=== PATIENT | male | born 1980 | race Caucasian/White ===

== ENCOUNTER 2017-05-27 15:05 | Emergency (ER) | payer BC ==
[~2017-05-27] VITALS: Ht 185.4 cm; Wt 102.0 kg
[~2017-05-27 15:05] MED LIST: CHOL20009 PO; DULO60CA44 PO; FRCT/ PO; HYDR25CA PO; LISI-787 PO; MULT-506 PO; OMEG10007 PO; PRAZ5CAP2 PO; PREG1CAP34 PO; SIMV20TA2 PO; TRAZ50TA35 PO
[2017-05-27 15:07] VITALS: TEMP 37.4; Ht 185.4 cm; Wt 102.0 kg
[2017-05-27 15:36] LABS: BASO % 1.5 %; BASO ABS # 0.09 K/uL (0-0.2); EOS % 0.8 %; EOS ABS # 0.05 K/uL (0-0.5); HEMATOCRIT 47.6 % (42-52); HEMOGLOBIN 15.7 g/dL (14.0-18.0); IG# 0.01 K/uL (0.00-0.02); LYMPH % 10.7 %; LYMPH ABS # 0.66 K/uL (1.2-3.4); MEAN CELL VOLUME 82.9 fL (80-100); MEAN CORPUSCULAR HEMOGLOBIN 27.4 pg (25-34); MEAN PLATELET VOLUME 10.8 fL (7.4-10.4); MONO % 11.5 %; MONO ABS # 0.71 K/uL (0.11-0.59); NEUT % 75.3 %; NEUT ABS # 4.65 K/uL (1.4-6.5); PLATELET COUNT 153 K/uL (130-400); RED CELL DISTRIBUTION WIDTH CV 14.3 % (11.5-14.5); WHITE BLOOD COUNT 6.17 K/uL (4.8-10.8)
[2017-05-27 15:54] LABS: ALBUMIN 4.1 gm/dl (3.4-5.0); CALCIUM 8.7 mg/dl (8.5-10.1); CREATININE 1.13 mg/dl (0.60-1.40); POTASSIUM 3.5 mmol/L (3.5-5.1)
[2017-05-27] MEDS ORDERED: OPTIRAY 320 IV PRN (16:30)
--- NOTE | 2017-05-27 16:48 | DIAGNOSTIC IMAGING REPORT ---
ABD/PELVIS IV CONTRAST ONLY CLINICAL HISTORY: 37 years-old Male presenting with RLQ abd pain. TECHNIQUE: Multidetector CT of the abdomen and pelvis was performed after the administration of intravenous contrast. IV contrast: 117 mL of Optiray 320. A dose lowering technique was used consistent with the principles of ALARA (as low as reasonably achievable). COMPARISON: None. CT DOSE (mGy.cm): The estimated cumulative dose is 598.35 mGy.cm. FINDINGS: Senior Report Developer topogram: Unremarkable. Lung bases: Minimal basilar opacities, likely atelectasis. Normal heart size. No pericardial or pleural effusion. Liver: Normal morphology. No liver lesion. Patent hepatic vasculature. Biliary: No intrahepatic or extrahepatic biliary ductal dilatation. Normal gallbladder. Pancreas: Mild parenchymal atrophy. Spleen: Normal. Adrenal glands: Normal. Kidneys and ureters: Subcentimeter hypodensity in the right kidney likely small cyst. No nephrolithiasis. No hydronephrosis. Extrarenal pelvises noted. Suggestion of mild urothelial thickening on the left. The ureters are otherwise normal. No calculi. Bladder: Circumferential bladder wall thickening. Pelvic organs: Prostate and seminal vesicles normal. Bowel: Normal appendix. No bowel obstruction. Peritoneal cavity: No free fluid or intraperitoneal gas. Lymph nodes: No enlarged lymph nodes in the abdomen or pelvis. Vasculature: Aorta and IVC patent and normal in caliber. Abdominal wall: Small fat-containing umbilical hernia. Fat-containing right inguinal hernia. Musculoskeletal: Normal. IMPRESSION: 1. Subtle evidence of left urothelial thickening and circumferential bladder wall thickening. This raises concern for cystitis with upper tract involvement of dissection. It would be unlikely for a patient of this age to have circumferential bladder wall thickening related to chronic bladder outlet obstruction, especially given the absence of prostatomegaly. 2. Right fat-containing inguinal hernia. Electronically signed by: Gato Chang M.D. 05/27/2017 4:47 PM Dictated Date/Time: 05/27/2017 4:43 PM
--- NOTE | 2017-05-27 17:12 | EMERGENCY ROOM VISIT NOTE ---
History First contact with patient: 15:12 Chief Complaint: ABDOMINAL PAIN Stated Complaint: SHARP PAIN IN LIVER/APPENDIX AREA Nursing Triage Summary: Patient c/o intermittent, RLQ abdominal pain that started at 0300. Denies N/V/D. History of Present Illness The patient is a 37 year old male who presents to the Emergency Room with complaints of right lower quadrant abdominal pain that started this morning around 3 AM. The patient denied any symptoms overnight. The patient denies any alleviating or aggravating factors for his pain. The pain is not worsened with ambulation or movement. The pain does not radiate to the back, flank, penis or testicles. The patient denies any prior history of kidney stones or bowel disease. He has not noticed any change in stool color or consistency, and denies any current urinary symptoms. He rates his discomfort a 5 out of 10. Review of Systems HEENT: Denies dizziness, visual problems, hearing loss, tinnitus. Denies difficulty swallowing or oral lesions. PULMONARY: Denies cough, shortness of breath, sputum production or hemoptysis. CARDIOVASCULAR: Denies chest pain, palpitations, dyspnea on exertion, orthopnea or peripheral edema. GASTROINTESTINAL: Denies diarrhea, constipation, nausea or vomiting, otherwise see HPI. GENITOURINARY: Denies dysuria, frequency, urgency or nocturia. NEUROLOGIC: Denies history of epilepsy, CVA, TIA or chronic headaches. MUSCULOSKELETAL: Denies history of joint tenderness/swelling. SKIN: Denies rashes or lesions. PSYCHIATRIC: Denies history of depression or mental illness. ENDOCRINE: Denies history of diabetes or thyroid disorders. Past Medical/Surgical History Medical Problems: (1) Essential (Primary) Hypertension (2) Fibromyalgia (3) Hyperlipidemia, Unspecified (4) Insomnia, Unspecified (5) Polyneuropathy, Unspecified (6) Post-Traumatic Stress Disorder, Unspecified Surgical Problems: (1) No history of previous surgery Family History FH: diabetes mellitus FH: heart disease Social History Smoking Status: Former Smoker Alcohol Use: occasionally Marital Status: Housing Status: lives with family Occupation Status: employed Current/Historical Medications Scheduled Cholecalciferol (Vitamin D), 2,000 INTER.UNIT PO DAILY Duloxetine Hcl (Cymbalta), 120 MG PO QAM Lisinopril/Hctz (Zestoretic 20MG/12.5MG), 1 TAB PO DAILY Prazosin Hcl (Prazosin), 5 MG PO HS Pregabalin (Lyrica), 300 MG PO BID Trazodone Hcl (Trazodone), 50 MG PO HS Scheduled PRN Acetamin/Butalbital/Caffeine (Fioricet), 1 TAB PO UD PRN for Migraine Hydroxyzine Pamoate (Vistaril), 1 CAP PO TID PRN for Anxiety/Agitation Physical Exam Vital Signs Date Time Temp Pulse Resp B/P (MAP) Pulse Ox O2 Delivery O2 Flow Rate FiO2 05/27/17 17:17 75 18 145/73 99 05/27/17 15:07 37.4 83 16 129/85 98 Physical Exam CONSTITUTIONAL: Healthy and well nourished. Alert and oriented X 3 with positive affect. Patient does not appear in any acute distress. HEENT: Normocephalic, atraumatic. Pupils equal, round and reactive. No scleral icterus or conjunctival injection/pallor. NECK: Full active range of motion without discomfort. RESPIRATORY: Clear to auscultation bilaterally with no wheezing, crackles, rhonchi or stridor. CARDIOVASCULAR: Regular rate and rhythm with no murmurs, rubs or gallops. GASTROINTESTINAL: Bowel sounds present in all quadrants. Patient has mild right lower quadrant tenderness to palpation. Negative Rovsing sign. Negative CVA tenderness. Negative psoas/obturator sign. Negative heel tap. No tenderness to palpation through the right inguinal region. MUSCULOSKELETAL: Full range of motion of all joints without discomfort. No tenderness to palpation through the lower lumbar spine, paraspinous muscles or SI joints. Negative logroll. Negative straight leg raise. INTEGUMENTARY: No rash or other significant dermatologic conditions noted. HEMATOLOGIC: No ecchymosis or petechiae noted. NEUROLOGIC: No focal neurologic deficits noted. Medical Decision & Procedures ER Provider Diagnostic Interpretation: CT of the abdomen and pelvis with IV contrast only shows fat-containing right inguinal and umbilical hernias. Radiologist also makes mention of circumferential bladder wall thickening and mild urothelial thickening on the left. Radiologist report is as follows: ABD/PELVIS IV CONTRAST ONLY CLINICAL HISTORY: 37 years-old Male presenting with RLQ abd pain. TECHNIQUE: Multidetector CT of the abdomen and pelvis was performed after the administration of intravenous contrast. IV contrast: 117 mL of Optiray 320. A dose lowering technique was used consistent with the principles of ALARA (as low as reasonably achievable). COMPARISON: None. CT DOSE (mGy.cm): The estimated cumulative dose is 598.35 mGy.cm. FINDINGS: Cloth Sponger topogram: Unremarkable. Lung bases: Minimal basilar opacities, likely atelectasis. Normal heart size. No pericardial or pleural effusion. Liver: Normal morphology. No liver lesion. Patent hepatic vasculature. Biliary: No intrahepatic or extrahepatic biliary ductal dilatation. Normal gallbladder. Pancreas: Mild parenchymal atrophy. Spleen: Normal. Adrenal glands: Normal. Kidneys and ureters: Subcentimeter hypodensity in the right kidney likely small cyst. No nephrolithiasis. No hydronephrosis. Extrarenal pelvises noted. Suggestion of mild urothelial thickening on the left. The ureters are otherwise normal. No calculi. Bladder: Circumferential bladder wall thickening. Pelvic organs: Prostate and seminal vesicles normal. Bowel: Normal appendix. No bowel obstruction. Peritoneal cavity: No free fluid or intraperitoneal gas. Lymph nodes: No enlarged lymph nodes in the abdomen or pelvis. Vasculature: Aorta and IVC patent and normal in caliber. Abdominal wall: Small fat-containing umbilical hernia. Fat-containing right inguinal hernia. Musculoskeletal: Normal. IMPRESSION: 1. Subtle evidence of left urothelial thickening and circumferential bladder wall thickening. This raises concern for cystitis with upper tract involvement of dissection. It would be unlikely for a patient of this age to have circumferential bladder wall thickening related to chronic bladder outlet obstruction, especially given the absence of prostatomegaly. 2. Right fat-containing inguinal hernia. Laboratory Results 05/27/17 15:23 Red Blood Count 5.74, Mean Corpuscular Volume 82.9, Mean Corpuscular Hemoglobin 27.4, Mean Corpuscular Hemoglobin Concent 33.0, Mean Platelet Volume 10.8, Neutrophils (%) (Auto) 75.3, Lymphocytes (%) (Auto) 10.7, Monocytes (%) (Auto) 11.5, Eosinophils (%) (Auto) 0.8, Basophils (%) (Auto) 1.5, Neutrophils # (Auto ) 4.65, Lymphocytes # (Auto) 0.66, Monocytes # (Auto) 0.71, Eosinophils # (Auto ) 0.05, Basophils # (Auto) 0.09 05/27/17 15:23 Test 05/27/17 15:23 White Blood Count 6.17 K/uL (4.8-10.8) Red Blood Count 5.74 M/uL (4.7-6.1) Hemoglobin 15.7 g/dL (14.0-18.0) Hematocrit 47.6 % (42-52) Mean Corpuscular Volume 82.9 fL (80-100) Mean Corpuscular Hemoglobin 27.4 pg (25-34) Mean Corpuscular Hemoglobin Concent 33.0 g/dl (32-36) Platelet Count 153 K/uL (130-400) Mean Platelet Volume 10.8 fL (7.4-10.4) Neutrophils (%) (Auto) 75.3 % Lymphocytes (%) (Auto) 10.7 % Monocytes (%) (Auto) 11.5 % Eosinophils (%) (Auto) 0.8 % Basophils (%) (Auto) 1.5 % Neutrophils # (Auto) 4.65 K/uL (1.4-6.5) Lymphocytes # (Auto) 0.66 K/uL (1.2-3.4) Monocytes # (Auto) 0.71 K/uL (0.11-0.59) Eosinophils # (Auto) 0.05 K/uL (0-0.5) Basophils # (Auto) 0.09 K/uL (0-0.2) RDW Standard Deviation 44.0 fL (36.4-46.3) RDW Coefficient of Variation 14.3 % (11.5-14.5) Immature Granulocyte % (Auto) 0.2 % Immature Granulocyte # (Auto) 0.01 K/uL (0.00-0.02) Urine Color YELLOW Urine Appearance CLEAR (CLEAR) Urine pH 6.0 (4.5-7.5) Urine Specific [place] 1.023 (1.000-1.030) Urine Protein NEG (NEG) Urine Glucose (UA) NEG (NEG) Urine Ketones TRACE (NEG) Urine Occult Blood NEG (NEG) Urine Nitrite NEG (NEG) Urine Bilirubin NEG (NEG) Urine Urobilinogen NEG (NEG) Urine Leukocyte Esterase NEG (NEG) Urine WBC (Auto) 1-5 /hpf (0-5) Urine RBC (Auto) 0-4 /hpf (0-4) Urine Hyaline Casts (Auto) 0 /lpf (0-5) Urine Epithelial Cells (Auto) 0-5 /lpf (0-5) Urine Bacteria (Auto) NEG (NEG) Anion Gap 5.0 mmol/L (3-11) Est Creatinine Clear Calc Drug Dose 112.3 ml/min Estimated GFR () 95.7 Estimated GFR (Non- 82.6 BUN/Creatinine Ratio 11.2 (10-20) Calcium Level 8.7 mg/dl (8.5-10.1) Total Bilirubin 0.6 mg/dl (0.2-1) Direct Bilirubin 0.1 mg/dl (0-0.2) Aspartate Amino Transf (AST/SGOT) 35 U/L (15-37) Alanine Aminotransferase (ALT/SGPT) 49 U/L (12-78) Alkaline Phosphatase 82 U/L (45-117) Total Creatine Kinase 521 U/L (39-308) Total Protein 8.0 gm/dl (6.4-8.2) Albumin 4.1 gm/dl (3.4-5.0) Lipase 75 U/L (73-393) The above labs were reviewed. Sodium is 133, otherwise remaining labs are normal, including a urinalysis. ED Course Patient history and physical exam were performed. Nurse's notes were reviewed. Vital signs were reviewed and were normal. The patient does not appear in any acute distress, and abdomen exam is rather benign except for focal right lower quadrant tenderness to palpation. IV access was established, and labs were drawn. Initial urine dip was normal. Urinalysis continued to show no hematuria or signs of infection. Review of labs shows a mild hyponatremia, otherwise no leukocytosis or left shift noted. Electrolytes are also normal. LFTs and lipase are normal. At this point, I recommended a CT of the abdomen and pelvis, and the patient was in agreement. CT of the abdomen and pelvis with IV contrast shows fat-containing right inguinal and umbilical hernias. Patient also has circumferential bladder wall thickening. At this point, I suggested that the patient follow-up with his PCP to review his CT studies. 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 I will also allow his PCP to discuss urology referral as well. The patient was instructed to return to the emergency department for any progressively worsening pain, vomiting or fever. The patient was encouraged alternate ibuprofen and Tylenol as needed for pain. The patient was happy with plan of care, and voiced understanding of all discharge instructions, rating his pain a 2 out of 10 at the time of discharge. Medical Decision Patient presents with complaint of right lower quadrant abdominal pain. His CT scan today does not show any evidence for appendicitis. He has no signs of UTI or hematuria to suggest UTI or ureteral calculus. He has no obstructive findings on CT scan to suggest incarcerated/strangulated hernias. No diverticulitis is seen on CT scan. I do not suspect epididymitis, orchitis or testicular torsion. Abdominal wall strain is also certainly possible. Medication Reconcilliation Current Medication List: was personally reviewed by me Blood Pressure Screening Patient's blood pressure: Normal blood pressure Impression Primary Impression: Right inguinal hernia Additional Impressions: Umbilical hernia Cystitis Departure Information [facility] Patient Instructions My [facility] Problem Qualifiers Additional Impressions: Umbilical hernia Obstruction and gangrene presence: without obstruction or gangrene Qualified Codes: K42.9 - Umbilical hernia without obstruction or gangrene
[2017-05-27 17:17] VITALS: BP 145/73; PULSE 75; O2SAT 99
== END 2017-05-27 17:18 | disposition home or self-care (01) ==
LOC: C.EDB 15:07 → C.EDC 17:18
DX: K40.90 Unilateral inguinal hernia, without obstruction or gangrene, not specified as recurrent (principal); K42.9 Umbilical hernia without obstruction or gangrene; N30.90 Cystitis, unspecified without hematuria; I10 Essential (primary) hypertension; M79.7 Fibromyalgia; G62.9 Polyneuropathy, unspecified; F43.10 Post-traumatic stress disorder, unspecified; G47.00 Insomnia, unspecified; Z87.891 Personal history of nicotine dependence; Z83.3 Family history of diabetes mellitus; Z82.49 Family history of ischemic heart disease and other diseases of the circulatory system

== ENCOUNTER 2017-07-03 16:02 | Emergency (ER) | payer BC, OTHER ==
[~2017-07-03] VITALS: Ht 185.4 cm; Wt 98.0 kg
[~2017-07-03 16:02] MED LIST changes: -MULT-506 PO; -OMEG10007 PO; -SIMV20TA2 PO
[2017-07-03 17:00] VITALS: TEMP 37.1; Ht 185.4 cm; Wt 98.0 kg
[2017-07-03 17:26] LABS: BASO % 0.9 %; BASO ABS # 0.07 K/uL (0-0.2); EOS % 0.8 %; EOS ABS # 0.06 K/uL (0-0.5); HEMATOCRIT 47.2 % (42-52); HEMOGLOBIN 16.1 g/dL (14.0-18.0); IG# 0.01 K/uL (0.00-0.02); LYMPH % 20.9 %; LYMPH ABS # 1.57 K/uL (1.2-3.4); MEAN CELL VOLUME 82.1 fL (80-100); MEAN CORPUSCULAR HGB CONC 34.1 g/dl (32-36); MEAN PLATELET VOLUME 10.2 fL (7.4-10.4); MONO % 5.9 %; MONO ABS # 0.44 K/uL (0.11-0.59); NEUT % 71.4 %; NEUT ABS # 5.36 K/uL (1.4-6.5); PLATELET COUNT 157 K/uL (130-400); RED CELL DISTRIBUTION WIDTH CV 14.2 % (11.5-14.5); RED CELL DISTRIBUTION WIDTH SD 42.5 fL (36.4-46.3); WHITE BLOOD COUNT 7.51 K/uL (4.8-10.8)
[2017-07-03 17:43] LABS: ALBUMIN 4.3 gm/dl (3.4-5.0); CALCIUM 8.9 mg/dl (8.5-10.1); CREATININE 1.08 mg/dl (0.60-1.40); POTASSIUM 3.7 mmol/L (3.5-5.1)
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
[2017-07-03 19:00] VITALS: BP 142/84; PULSE 82; O2SAT 98
== END 2017-07-03 19:39 | disposition home or self-care (01) ==
LOC: EDBD 16:02 → C.EDA 16:03
DX: F32.9 Major depressive disorder, single episode, unspecified (principal); F43.10 Post-traumatic stress disorder, unspecified; R45.851 Suicidal ideations; I10 Essential (primary) hypertension; E78.5 Hyperlipidemia, unspecified; M79.7 Fibromyalgia; G62.9 Polyneuropathy, unspecified; G47.00 Insomnia, unspecified; Z79.899 Other long term (current) drug therapy; Z87.891 Personal history of nicotine dependence; Z83.3 Family history of diabetes mellitus

== ENCOUNTER 2019-05-07 10:53 | Inpatient (IN) ==
--- NOTE | 2019-04-21 13:05 | Anesthesiology Consultation ---
Date of Service April 21, 2019 Assessment & Plan (1) Encounter for pre-operative examination: Chart Review Chart Review: Patient NOT seen in Pre Admission Testing Pt seen in ER 04/20/19= Seen for seizure and alcohol intoxication- prior to seizure had consumed significant amount of alcohol. Become unresponse x 1 minute then came to but was weak, diaphoretic and confused. Also has saliva coming from mouth but no vomiting. Symptoms similar to previous seizures. Follows with neurology. Uses medical mariuana and alcohol to help with back pain. [facility]- no PCP available and per [place] patient does not follow with neurology. Surgeon's office was informed and Dr. Kessler did cancel the case requesting neurology clearance before patient can proceed with back surgery. Surgeon's office was contacting patient in regards to cancellation History Surgery Operation Date: 04/22/19 13:45 Proposed Procedures p L4-S1 Decompression and Fusion, Spinal Cord Monitoring - Robert Kessler, Height/Weight Height: 6 ft Weight: 104.326 kg Allergies Allergy/AdvReac Type Severity Reaction Status Date / Time No Known Allergies Allergy Verified 04/21/19 12:10 Medications Home Medications Medication Instructions Recorded Confirmed Last Taken cholecalciferol (vitamin D3) 2,000 unit PO QAM 05/20/18 04/21/19 04/20/19 [Vitamin D3] duloxetine 120 mg PO QAM 05/20/18 04/21/19 04/20/19 lamotrigine [Lamictal] 100 mg PO BID 05/20/18 04/21/19 04/20/19 lisinopril-hydrochlorothiazide 1 tab PO QAM 05/20/18 04/21/19 04/20/19 magnesium 30 mg PO BID 05/20/18 04/21/19 04/20/19 prazosin 5 mg PO HS 05/20/18 04/21/19 04/20/19 pregabalin 300 mg PO BID 05/20/18 04/21/19 04/20/19 trazodone 25 mg PO HS 05/20/18 04/21/19 04/20/19 Past Medical History Medical History (Updated 04/21/19 @ 13:14 by lAyssa Jones PA-C) Chronic back pain Degenerative disc disease Depression Hypertension Memory deficit SHORT TERM ISSUES Post traumatic stress disorder Seizure ABSENCE SZS- QUESTIONABLE SZ 04/20/19 TBI (traumatic brain injury) OCCURED IN . Past Family History Family History Grandfather (Paternal) Family history of diabetes mellitus Past Surgical History Surgical History History of bilateral carpal tunnel release History of discectomy LUMBAR History of surgery tendon release bilateral legs Hx of foot surgery X2 Hx of hernia repair X3 Social History Smoking Status: Current every day smoker tobacco type: cigars Smoking cigarettes per day: 2-3 Do You Dip or Chew Tobacco: No Hx Alcohol Use: Yes Alcohol type: beer alcohol intake frequency: 0-2 drinks per day Hx Substance Use: Yes (MEDICAL MARIJUANA) substance use type: marijuana Testing Laboratory Results Laboratory Tests 04/20/19 04/20/19 20:23 20:23 WBC 5.57 Hgb 15.9 Hct 47.7 Plt Count 155 Sodium 141 Potassium 3.5 Chloride 105 Carbon Dioxide 29 BUN 8 Creatinine 1.00 Glucose 112 H TSH 1.850 04/20/19= AST= 50; ALT= 79 Electrocardiogram Date: 04/20/19 Findings: + NSR @ (61) unconfirmed
[~2019-05-07 10:53] MED LIST changes: +ACETAMINOPHEN 500 MG TAB PO SCH; +CEFAZOLIN 2000MG 2,000 MG/15 ML SYR IV SCH; -CHOL20009 PO; +CeleBREX 200 MG CAP PO SCH; -DULO60CA44 PO; -FRCT/ PO; +GABAPENTIN 900 MG DOSE PO SCH; -HYDR25CA PO; -LISI-787 PO; +LR 15ML/HR IV SCH; -PRAZ5CAP2 PO; -PREG1CAP34 PO; -TRAZ50TA35 PO
[2019-05-07] MEDS ORDERED: ROCURONIUM BROMIDE 10 MG/ML 5 ML VIAL ONE ×2 (11:29→15:19)
[2019-05-07] MEDS ORDERED: PROPOFOL IV EMULSION 10 MG/ML 20 ML VIAL IV ONE (11:29)
[2019-05-07] MEDS ORDERED: LIDOCAINE HCL 2% 2 ML VIAL/AMP(20MG/ML) INFIL ONE (11:29)
[2019-05-07] MEDS ORDERED: DEXAMETHASONE SOD INJ 4 MG/ML VIAL ONE (11:29)
[2019-05-07] MEDS ORDERED: ONDANSETRON INJ 2 MG/ML 2 ML VIAL ONE (11:29)
[2019-05-07] MEDS ORDERED: fentaNYL citrate 100 MCG/2 ML VIAL ONE (11:29)
[2019-05-07] MEDS ORDERED: HYDROmorphone INJ 2 MG/ML SYR/VIAL ONE (11:30)
[2019-05-07] MEDS ORDERED: MIDAZOLAM HCL 1 MG/ML 2ML VIAL ONE (11:30)
--- NOTE | 2019-05-07 12:39 | History & Physical Bridge Note ---
Date of Service May 07, 2019 History & Physical Bridge Note I have examined the patient, reviewed the History & Physical and in the interval since the performance of the History & Physical I have noted the following changes of clinical significance: no changes noted
[2019-05-07] MEDS ORDERED: ATROPINE SULFATE 0.1 MG/ML 10ML SYR IV PRN (12:40)
[2019-05-07] MEDS ORDERED: ePHEDrine sulfate 50 MG/ML AMP IV PRN (12:40)
[2019-05-07] MEDS ORDERED: HYDROmorphone INJ 1 MG/ML SYRINGE IV PRN ×2 (12:40→16:59)
[2019-05-07] MEDS ORDERED: ONDANSETRON INJ 2 MG/ML 2 ML VIAL IV PRN ×2 (12:40→16:59)
--- NOTE | 2019-05-07 12:40 | History & Physical Report ---
Date of Service May 07, 2019 Assessment & Plan (1) Neurogenic claudication due to lumbar spinal stenosis: Lumbar spinal stenosis L4-S1 decompression fusion Present on Admission?: Yes History of Present Illness Chief Complaint: Back and bilateral leg pain Primary Care Provider: Brigid Tamez This is a 39-year-old male who presents with back and bilateral leg pain. After failing extensive course of nonoperative care is here for surgical invention. Allergies Allergy/AdvReac Type Severity Reaction Status Date / Time No Known Allergies Allergy Verified 05/07/19 11:47 Home Medications Home Medications Medication Instructions Recorded Confirmed Type cholecalciferol (vitamin D3) 2,000 unit PO QAM 05/20/18 05/07/19 History [Vitamin D3] duloxetine 120 mg PO QAM 05/20/18 05/07/19 History lamotrigine [Lamictal] 100 mg PO BID 05/20/18 05/07/19 History lisinopril-hydrochlorothiazide 1 tab PO QAM 05/20/18 05/07/19 History magnesium 30 mg PO BID 05/20/18 05/07/19 History prazosin 5 mg PO HS 05/20/18 05/07/19 History pregabalin 300 mg PO BID 05/20/18 05/07/19 History trazodone 25 mg PO HS 05/20/18 05/07/19 History Past Med/Surg History Family History Grandfather (Paternal) Family history of diabetes mellitus Social History Preferred Language: Estonian Communication Ability: Effective 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 Results & Data Vital Signs (Past 12 Hours) Vital Signs Temp Pulse Resp BP Pulse Ox 05/07/19 11:53 36.8 C 73 20 140/93 97
[2019-05-07] MEDS ORDERED: BUPIVACAINE/EPINEPHRINE 0.5% MPF 1:200,000 10 ML VIAL ONE (13:04)
[2019-05-07] MEDS ORDERED: BACITRACIN INJ 50,000 UNIT VIAL ONE (13:04)
[2019-05-07] MEDS ORDERED: ePHEDrine sulfate 50 MG/ML AMP ONE (13:47)
[2019-05-07] MEDS ORDERED: PHENYLEPHRINE HCL 10 MG/ML VIAL ONE (14:02)
[2019-05-07] MEDS ORDERED: PROMETHAZINE HCL INJ 25 MG/ML 1 ML VIAL ONE (14:02)
[2019-05-07] MEDS ORDERED: FLOSEAL HEMOSTATIC MATRIX 10ML TOP ONE (14:57)
[2019-05-07] MEDS ORDERED: NEOSTIGMINE METHYLSULFATE 1 MG/ML 10ML VIAL ONE (15:19)
[2019-05-07] MEDS ORDERED: GLYCOPYRROLATE 0.2 MG/ML VIAL ONE (15:19)
--- NOTE | 2019-05-07 15:23 | Operative Report ---
Post Operative Report Pre & Post Diagnosis Operation Date: 05/07/19 13:15 Pre-Op Diagnosis: Radiculopathy, Lumbar Region Post-Op Diagnosis: Radiculopathy, Lumbar Region I identified the patient and participated in the time-out.: Yes Procedure Operation Date: 05/07/19 13:15 Actual Procedures #1 revision decompression bilateral medial facetectomies foraminotomies L4-5 L5- S1. #2 posterior spinal fusion L4-5 L5-S1. #3 placement posterior instrumentation L4-5 L5-S1. #4 interbody fusion L4-5 L5-S1. #5 placement of titanium cage 9 x 26 mm at L4-5 and 11 x 26 mm at L5-S1. #6 placement locally harvested morselized autograft in the posterior lateral gutters. #7 placement infuse collagen sponge, master graft in the posterior lateral gutters and ostial amp and interbody space. Surgeon Robert Kessler DO Poultry Slaughterer Lindsay Rincon Estimated Blood Loss 250 Findings Consistent with Post-Op Diagnosis Specimens None Indications This is a 39-year-old male who presents above-mentioned diagnosis after failing extensive course of nonoperative care is here for the above-mentioned procedure. Description of Procedure Patient was met with identified informed consent obtained. Patient was then taken to the operative suite underwent ablation placed in prone position check stable on top Juan Daniel frame. All bony prominences well-padded eyes inspected to ensure no external pressure placed upon. This point the lumbar spine was prepped and draped in normal sterile fashion. Sharp dissection with the assistance pericardial form down to and exposing the remaining lamina and transverse processes of L4-L5 and sacral ala bilaterally. From caudal to cephalad fashion a revision complete laminectomy L5 and L4 was performed including bilateral medial facetectomies and foraminotomies addressing all stenosis. Pedicle screws in place at L4-L5 and S1 levels bilateral with assistance of fluoroscopy the purposes lu placed. By way of a transforaminal approach on the right complete discectomy of L5-S1 was performed endplates coated to subcortical bleeding bone and a 11 x 26 mm titanium cage filled with osteo-bone graft tapped in position. Then proceeded L4-5 and again complete discectomy performed endplates curetted to subcortical bleeding bone and a 9 x 26 mm titanium cage filled with osteo-bone graft tapped in position. The rods were then locked in final position bilaterally. The transverse processes of L4- L5 and sacral ala burred to subcortical bleeding bone. Infuse collagen sponge master graft local autograft was then placed in the posterior lateral gutters. 15 round GARRET drain inserted. The incision was then closed with 1 Vicryl in the fascia 2-0 Vicryl subcutaneously and 4 Monocryl for final skin closure. Steri- Strip sterile dressing was placed. Patient will continue PACU stable addition. Please note spinal cord monitoring was utilized that the procedure no changes noted. Lastly Lindsay Rincon was present at the entire procedure involved the patient positioning complex portions of the surgery and final skin closure. I attest to the content of the Intraoperative Record and any orders documented therein. Any exceptions are noted below.
--- NOTE | 2019-05-07 15:49 | Fluoroscopy Report ---
FL lumbar spine 2-3V HISTORY: 39 years-old Male L4-S1 DECOMP/FUSION chronic low back pain COMPARISON: Right lumbar spine 03/12/2019 TECHNIQUE: 2 Spot fluoroscopic images of the lumbar spine were obtained utilizing 22.9 seconds fluoro scopy time FINDINGS: Laminectomy changes at the L4-S1 levels with discectomy, posterior interbody lu and screw fusion. Sa tisfactory alignment without acute fracture identified. Mild multilevel facet arthrosis with spondyli tic spurring. IMPRESSION: Fluoroscopic assistance as above. Please see operative report for further details. ACT 112: Negative or not required by law. The above report was generated using voice recognition software. It may contain grammatical, syntax o r spelling errors. Electronically signed by: Jasper Gary M.D. 05/07/2019 3:47 PM
--- NOTE | 2019-05-07 16:08 | Anesthesiology Progress Note ---
Date of Service May 07, 2019 Anesthesia Post Procedure Vital Signs Vital Signs: Temp Pulse Pulse Resp BP Pulse Ox 05/07/19 16:00 88 13 116/64 97 05/07/19 15:50 82 14 104/66 98 05/07/19 15:44 36.7 C 98 H 14 112/66 98 05/07/19 11:53 36.8 C 73 20 140/93 97 Pain Intensity Lower Back: Pain Intensity: 7 Right Leg: Pain Intensity: 4 Transfer of Care Handoff Completed per policy Notes Mental Status: alert / awake / arousable Patient Amnestic to Procedure: Yes Nausea / Vomiting: adequately controlled Pain: adequately controlled Airway Patency, RR, SpO2: stable & adequate BP & HR: stable & adequate Hydration State: stable & adequate Anesthetic Complications: no major complications apparent
[2019-05-07] MEDS: fentaNYL citrate 100 MCG/2 ML VIAL IV PRN ×2 (16:26→16:31)
[2019-05-07] MEDS ORDERED: METOCLOPRAMIDE HCL INJ 5 MG/ML 2 ML VIAL IV PRN (16:59)
[2019-05-07] MEDS ORDERED: PROMETHAZINE HCL 12.5 MG in SODIUM CHLORIDE 0.9% 50 ML IV PRN (16:59)
[2019-05-07] MEDS ORDERED: DO NOT ADMINISTER PNEUMOCOCCAL VACCINE PRN (16:59)
[2019-05-07] MEDS ORDERED: ONDANSETRON 4 MG OD TAB PO PRN (16:59)
[2019-05-07] MEDS ORDERED: DO NOT ADMINISTER FLU VACCINE PRN (16:59)
[2019-05-07] MEDS ORDERED: NALOXONE HCL 0.4 MG/1 ML VIAL/CARP IV PRN (16:59)
[2019-05-07] MEDS ORDERED: MAGNESIUM HYDROXIDE SUSP 30 ML UDC PO PRN (16:59)
[2019-05-07] MEDS ORDERED: LORazepam 0.5 MG/1 ML VIAL IV PRN (16:59)
[2019-05-07] MEDS ORDERED: SOD PHOSPHATE/SOD BIPHOSPHATE ENEMA 132 ML BTL PR PRN (16:59)
[2019-05-07] MEDS ORDERED: ACETAMINOPHEN 500 MG TAB PO PRN (16:59)
[2019-05-07] MEDS ORDERED: HYDROmorphone INJ 0.5 MG/0.5 ML SYR IV PRN (16:59)
[2019-05-07] MEDS ORDERED: ACETAMINOPHEN 1,000 MG/100 ML VIAL IV PRN (16:59)
[2019-05-07] MEDS ORDERED: FAMOTIDINE 20 MG TAB PO PRN (16:59)
[2019-05-07] MEDS ORDERED: LORazepam 0.5 MG TAB PO PRN (16:59)
[2019-05-07] MEDS ORDERED: bisacodyL 10 MG SUPP PR PRN (16:59)
[2019-05-07] MEDS ORDERED: GABAPENTIN 1200MG ALCOHOL WITHDRAWAL LOAD PO STA (17:51)
[2019-05-07] MEDS ORDERED: LORazepam 1 MG/2 ML VIAL IV PRN (17:51)
[2019-05-07] MEDS ORDERED: ATIVAN IV ALCOHOL WITHDRAWL IV PRN (17:51)
[2019-05-07] MEDS ORDERED: LORazepam 3 MG/6 ML VIAL IV PRN (17:51)
[2019-05-07] MEDS ORDERED: NICOTINE POLACRILEX 2 MG GUM MT PRN (17:51)
[2019-05-07] MEDS ORDERED: LORazepam 2 MG/4 ML VIAL IV PRN (17:51)
--- NOTE | 2019-05-07 18:04 | Consultation ---
Date of Consultation May 07, 2019 Assessment & Plan (1) Status post lumbar surgery: Post op day# 0 S/P L4-S1 decompression and fusion by Dr Kessler [id number] -pain management per ortho -wound management per ortho -PT/OT as appropriate -DVT prophylaxis per ortho -incentive spirometry -monitor H&H for acute blood loss anemia; pre-op Hgb: 15.9 (2) Alcohol abuse: Drinks 6-12 sixteen ounce beers daily. Last drink 7pm on 05/06/2019 -Transfer to tele floor for further observation of alcohol withdrawal -Alcohol withdrawal protocol with gabapentin and Ativan -Consider alcohol counseling, rehab, re-discuss tomorrow as is currently just post-op (3) Hypertension: Stable -Hold lisinopril/HCTZ and reassess tomorrow (4) Post traumatic stress disorder: (5) Depression: -Continue duloxetine, lamotrigine (6) Tobacco use: -Tobacco cessation recommended -Nicotine gum prn DVT Prophylaxis -SCDs per ortho Follows with Brigid Tamez at [facility] for routine care Pt was seen and care coordinated with Dr Francisco. See addendum Thank you for this consultation. We will follow the patient with you during their hospital stay. You can reach a [facility] via pager @ [phone]. Supervising Physician Co-Signing Physician Notes Attending addendum. 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, has tremors involving the outstretched hands Labs and imaging studies reviewed Status post lumbar decompression fusion with alcohol withdrawal symptoms Patient be transferred to telemetry Agree with assessment and plan as outlined above by GWEN Ortiz Dr History of Present Illness Requesting Physician: Dr Kessler Reason for Consultation: Post op medical management Attending Physician: Robert Kessler DO History of Present Illness Pt is 39 y/o M with PMH anxiety, depression, PTSD, TBI, alcohol abuse, tobacco use, HTN seen in consultation for postop medical management s/p L4-S1 decompression and fusion today by Dr. Kessler. Postop patient reporting back pain and bilateral leg pain. Reports his leg paresthesias he had prior to surgery have resolved. Denies shortness of breath, chest pain, anxiety, tremors. Drinks six to twelve 16 ounce beers daily. Last reported drink yesterday at 7 PM. Reports history anxiety and tremors with alcohol withdrawal in past. Denies history of DTs. Reports history of alcohol abuse and intoxication to the point of blacking out and seizures. Denies fever/chills, diaphoresis, N/V/D, VALENZUELA, dizziness, vision changes, neck pain, orthopnea, palpitations, cough, sore throat, choking, otalgia, rhinorrhea, abdominal pain,, extremity edema, rashes, urinary symptoms. Allergies Allergy/AdvReac Type Severity Reaction Status Date / Time No Known Allergies Allergy Verified 05/07/19 11:47 Home Medications Home Medications Medication Instructions Recorded Confirmed Type cholecalciferol (vitamin D3) 2,000 unit PO QAM 05/20/18 05/07/19 History [Vitamin D3] duloxetine 120 mg PO QAM 05/20/18 05/07/19 History lamotrigine [Lamictal] 100 mg PO BID 05/20/18 05/07/19 History lisinopril-hydrochlorothiazide 1 tab PO QAM 05/20/18 05/07/19 History magnesium 30 mg PO BID 05/20/18 05/07/19 History prazosin 5 mg PO HS 05/20/18 05/07/19 History pregabalin 300 mg PO BID 05/20/18 05/07/19 History trazodone 25 mg PO HS 05/20/18 05/07/19 History Patient History Medical History Alcohol abuse Chronic back pain Degenerative disc disease Depression Hypertension Memory deficit SHORT TERM ISSUES Post traumatic stress disorder Seizure ABSENCE SZS- QUESTIONABLE SZ 04/20/19 TBI (traumatic brain injury) OCCURED IN . Tobacco use Surgical History History of bilateral carpal tunnel release History of discectomy LUMBAR History of surgery tendon release bilateral legs Hx of foot surgery X2 Hx of hernia repair X3 Family History Grandfather (Paternal) Family history of diabetes mellitus Social History Preferred Language: Moroccan Communication Ability: Effective Firer Locomotive Required: No Beliefs That Will Affect Care: None Current Living Situation: Family Feels Safe at Home: Yes Safety Concerns: Feels Safe At This Time Smoking Status: Current every day smoker Tobacco Type: cigars ; Cigarettes Per Day: 2-3 ; Do You Dip or Chew Tobacco: No ; Second Hand Exposure: No ; Hx Alcohol Use: Yes Alcohol type: beer Alcohol Intake Frequency Comment: 6-12 beers per day Hx Substance Use: Yes (MEDICAL MARIJUANA) substance use type: marijuana Review of Systems Review of Systems: All systems reviewed & are unremarkable except as noted in HPI & below Physical Exam Physical Exam: General: no acute distress, WDWN Head: normocephalic, atraumatic Eyes: PERRL, EOM's intact, conjunctiva non-injected, anicteric ENT: normal inspection external ears, nose, mucous membranes moist Neck: supple, trachea midline, non-tender Lungs: clear, no respiratory distress, no wheezing/rhonchi/rales CV: RRR, no murmur, no pretibial edema Abd: normal BS, soft, non-tender Back: GARRET drain in place with serosanguineous drainage Ext: no cyanosis, no calf tenderness; sensation to light touch intact, pedal pushes and pulls intact bilaterally, distal pulses intact bilaterally Neuro: A&O x 3, no focal deficits noted, no tremors, somewhat flat affect Skin: warm, dry Results & Data ([facility]) Vital Signs (Past 12 Hours) Vital Signs Temp Pulse Pulse Resp BP Pulse Ox 05/07/19 17:58 36.2 C L 88 16 127/71 96 05/07/19 16:46 36.7 C 87 17 117/69 95 05/07/19 16:40 36.7 C 80 17 128/73 95 05/07/19 16:30 75 14 124/68 95 05/07/19 16:20 96 H 16 127/70 94 05/07/19 16:10 88 16 129/64 94 05/07/19 16:00 88 13 116/64 97 05/07/19 15:50 82 14 104/66 98 05/07/19 15:44 36.7 C 98 H 14 112/66 98 05/07/19 11:53 36.8 C 73 20 140/93 97
[2019-05-07] MEDS ORDERED: GABAPENTIN 600 MG TAB PO SCH (18:30)
[2019-05-07] MEDS: KETOROLAC 30 MG/ML VIAL IV SCH ×2 (19:17→23:53)
[2019-05-07] MEDS: THIAMINE HCL 100 MG TAB PO SCH (19:20)
[2019-05-07] MEDS: FOLIC ACID 1 MG TAB PO SCH (19:21)
[2019-05-07] MEDS: LACTATED RINGER'S 1,000 ML IV SCH ×2 (19:55→23:47)
[2019-05-07] MEDS ORDERED: NON-FORMULARY MEDICATION (Magnesium 30 MG) PO SCH (21:00)
[2019-05-07] MEDS: CEFAZOLIN 2000MG 2,000 MG/15 ML SYR IV SCH (21:17)
[2019-05-07] MEDS: PRAZOSIN HCL 1 MG CAP PO SCH (21:18)
[2019-05-07] MEDS: OXYCODONE HCL IR 5 MG TAB (IMMEDIATE RELEASE) PO PRN (21:18)
[2019-05-07] MEDS: PREGABALIN 150 MG CAP PO SCH (21:18)
[2019-05-07] MEDS: lamoTRIgine 100 MG TAB PO SCH (21:19)
[2019-05-07] MEDS: TRAZODONE HCL 50 MG TAB PO SCH (21:19)
[2019-05-07] MEDS: DOCUSATE SODIUM/SENNA 50/8.6MG TAB PO SCH (21:19)
[2019-05-07] MEDS: GABAPENTIN 600 MG TAB PO SCH (23:47)
[2019-05-08] MEDS: POLYETHYLENE (MIRALAX) 17 GM PACK PO SCH ×3 (05:40→18:23)
[2019-05-08] MEDS: KETOROLAC 30 MG/ML VIAL IV SCH ×2 (05:40→12:32)
[2019-05-08] MEDS: CEFAZOLIN 2000MG 2,000 MG/15 ML SYR IV SCH (05:40)
[2019-05-08] MEDS: GABAPENTIN 600 MG TAB PO SCH ×3 (05:40→21:02)
[2019-05-08] MEDS: LACTATED RINGER'S 1,000 ML IV SCH (05:44)
[2019-05-08 06:06] LABS: Hematocrit (blood only) 42.8 % (42-52); Hemoglobin 13.9 g/dL (14.0-18.0); Immature Granulocytes # (auto) 0.05 K/uL (0.00-0.02); Immature Granulocytes % (auto) 0.3 %; Lymphocytes # (auto) 1.08 K/uL (1.2-3.4); Lymphocytes % (auto) 7.3 %; Mean Corpuscular Hemoglobin 28.7 pg (25-34); Mean Corpuscular Hgb Conc 32.5 g/dL (32-36); Mean Corpuscular Volume 88.4 fL (80-100); Mean Platelet Volume 11.4 fL (7.4-10.4); Monocytes # (auto) 0.81 K/uL (0.11-0.59); Monocytes % (auto) 5.5 %; Neutrophils # (auto) 12.92 K/uL (1.4-6.5); Neutrophils % (auto) 86.9 %; Platelet Count 173 K/uL (130-400); RDW Coefficient of Variation 16.2 % (11.5-14.5); RDW Standard Deviation 52.4 fL (36.4-46.3); Red Blood Count 4.84 M/uL (4.7-6.1); White Blood Count 14.86 K/uL (4.8-10.8)
[2019-05-08 06:41] LABS: BUN Creatinine Ratio 12.2 (10-20); Calcium 8.6 mg/dl (8.5-10.1); Creatinine Clr Calc Pharmacy 112.2 ml/min; Est GFR (African American) 97.5; Est GFR (Non-African American) 84.1; Potassium 3.8 mmol/L (3.5-5.1)
[2019-05-08] MEDS: lamoTRIgine 100 MG TAB PO SCH ×2 (07:50→20:59)
[2019-05-08] MEDS: THIAMINE HCL 100 MG TAB PO SCH (07:50)
[2019-05-08] MEDS: FOLIC ACID 1 MG TAB PO SCH (07:50)
[2019-05-08] MEDS: DULOXETINE HCL 60 MG CAP PO SCH (07:51)
[2019-05-08] MEDS: CHOLECALCIFEROL 1,000 UNITS 25 MCG TAB PO SCH (07:51)
[2019-05-08] MEDS: PREGABALIN 150 MG CAP PO SCH ×2 (07:53→21:06)
--- NOTE | 2019-05-08 08:17 | Orthopedic Progress Note ---
Date of Service May 08, 2019 Assessment & Plan (1) Neurogenic claudication due to lumbar spinal stenosis: At this time initiate physical therapy monitor his GARRET output hopefully discharge home in the next few days. Present on Admission?: Yes Admission and Anticipated Discharge Date Admission Date: May 07, 2019 Subjective Back pain controlled leg symptoms improved. Physical Exam Physical Exam: Patient is in a chair at the bedside. Is good strength testing. Appears comfortable. Results & Data ([facility]) Vital Signs (Past 12 Hours) Vital Signs Temp Pulse Pulse Resp BP Pulse Ox 05/08/19 07:45 36.5 C 84 18 110/69 96 05/08/19 03:45 36.6 C 76 18 104/63 93 05/07/19 23:22 36.7 C 90 18 91/63 L 90
[2019-05-08] MEDS ORDERED: LISINOPRIL/HCTZ 20/12.5MG 1 TAB TAB PO SCH (09:00)
--- NOTE | 2019-05-08 10:39 | Anesthesiology Progress Note ---
Date of Service May 08, 2019 Anesthesia Post Procedure Vital Signs Vital Signs: Temp Pulse Pulse Resp BP BP Pulse Ox 05/08/19 07:45 36.5 C 84 18 110/69 96 05/08/19 03:45 36.6 C 76 18 104/63 93 05/07/19 23:22 36.7 C 90 18 91/63 L 90 05/07/19 19:56 36.7 C 80 16 129/72 95 05/07/19 19:28 36.5 C 79 16 120/74 96 05/07/19 18:29 36.4 C L 85 18 125/69 96 05/07/19 17:58 36.2 C L 88 16 127/71 96 05/07/19 16:46 36.7 C 87 17 117/69 95 05/07/19 16:40 36.7 C 80 17 128/73 95 05/07/19 16:30 75 14 124/68 95 05/07/19 16:20 96 H 16 127/70 94 05/07/19 16:10 88 16 129/64 94 05/07/19 16:00 88 13 116/64 97 05/07/19 15:50 82 14 104/66 98 05/07/19 15:44 36.7 C 98 H 14 112/66 98 05/07/19 11:53 36.8 C 73 20 140/93 97 Pain Intensity Lower Back: Pain Intensity: 7 Right Leg: Pain Intensity: 4 Back: Pain Intensity: 8 Notes Mental Status: alert / awake / arousable and participated in evaluation Patient Amnestic to Procedure: Yes Nausea / Vomiting: adequately controlled Pain: adequately controlled Airway Patency, RR, SpO2: stable & adequate BP & HR: stable & adequate Hydration State: stable & adequate Anesthetic Complications: no major complications apparent and Pt Satisfied with anesthetic care
[2019-05-08] MEDS: ALUMINUM/MAGNESIUM SUSP 30 ML UDC PO PRN (12:34)
--- NOTE | 2019-05-08 16:40 | Hospitalist Progress Note ---
Date of Service May 08, 2019 Assessment & Plan (1) Status post lumbar surgery: S/P lumbar decompression / fusion. POD # 1. (2) Hypertension: Continue prazosin. (3) Alcohol use: Last drink about 2 days ago. No withdrawal symptoms. Continue alcohol withdrawal protocol with gabapentin. (4) DVT prophylaxis: Per Ortho Spine. (5) Encounter for consultation: Thank you for this consultation. We will follow the patient with you during their hospital stay. My cell # is [phone]. You can reach a member of the [facility] Medicine Team 25/09 via pager @ [phone]. Admission and Anticipated Discharge Date Admission Date: May 07, 2019 Subjective Recheck for medical management. Patient seen in their room around 1620. Doing well. Postop pain well-controlled. Ambulating. Last consumption of alcohol was about 2 days ago. No alcohol withdrawal symptoms. Review of Systems: Constitutional- no fever. Cardiac- no chest pain. Pulmonary- no cough or SOB. GI- no nausea, vomiting, diarrhea, melena, hematochezia. - no urinary symptoms. Otherwise, as noted above. Physical Exam Constitutional: no acute distress Eyes: + anicteric sclerae Respiratory: no respiratory distress Auscultation: lungs clear to auscultation bilaterally Cardiovascular: Rate/Rhythm: regular rate and regular rhythm Heart Sounds: no gallop, no murmur and no cardiac rub Vessels: no JVD Extremities: no calf tenderness and no edema Gastrointestinal (Abdomen): normal bowel sounds, soft, nontender, no hepatosplenomegaly Musculoskeletal: SCD's applied. Skin: no rashes, warm and dry Neurologic: no tremor no apparent hallucinations Psychiatric: Orientation: alert and oriented x 3 Results & Data ([facility]) Vital Signs (Past 12 Hours) Vital Signs Temp Pulse Pulse Resp BP Pulse Ox 05/08/19 15:48 36.9 C 89 18 137/61 5 L 05/08/19 13:07 91 05/08/19 11:29 36.8 C 72 18 119/51 L 96 05/08/19 07:45 36.5 C 84 18 110/69 96 Laboratory Results 05/08/19 05:32 05/08/19 05:32
[2019-05-08] MEDS: OXYCODONE HCL IR 5 MG TAB (IMMEDIATE RELEASE) PO PRN (20:57)
[2019-05-08] MEDS: PRAZOSIN HCL 1 MG CAP PO SCH (20:58)
[2019-05-08] MEDS: TRAZODONE HCL 50 MG TAB PO SCH (21:06)
[2019-05-08] MEDS: DOCUSATE SODIUM/SENNA 50/8.6MG TAB PO SCH (21:06)
[2019-05-08] MEDS: TRAMADOL HCL 50 MG TABLET PO PRN (22:44)
[2019-05-09] MEDS: ALUMINUM/MAGNESIUM SUSP 30 ML UDC PO PRN (00:10)
[2019-05-09] MEDS: GABAPENTIN 600 MG TAB PO SCH ×2 (06:32→17:08)
[2019-05-09] MEDS: TRAMADOL HCL 50 MG TABLET PO PRN ×4 (07:50→23:44)
[2019-05-09] MEDS: DULOXETINE HCL 60 MG CAP PO SCH (07:50)
[2019-05-09] MEDS: CHOLECALCIFEROL 1,000 UNITS 25 MCG TAB PO SCH (07:50)
[2019-05-09] MEDS: THIAMINE HCL 100 MG TAB PO SCH (07:51)
[2019-05-09] MEDS: FOLIC ACID 1 MG TAB PO SCH (07:51)
[2019-05-09] MEDS: lamoTRIgine 100 MG TAB PO SCH ×2 (07:51→20:26)
[2019-05-09] MEDS: PREGABALIN 150 MG CAP PO SCH ×2 (07:54→20:19)
[2019-05-09] MEDS: OXYCODONE HCL IR 5 MG TAB (IMMEDIATE RELEASE) PO PRN ×3 (09:14→20:27)
--- NOTE | 2019-05-09 13:24 | Orthopedic Progress Note ---
Date of Service May 09, 2019 Assessment & Plan (1) Neurogenic claudication due to lumbar spinal stenosis: At this time we will continue physical therapy. He is struggling with his normal postop day soreness I suspect this will steadily improve. Anticipate discharge home tomorrow. Admission and Anticipated Discharge Date Admission Date: May 07, 2019 Subjective Back pain is controlled leg pain improving. Physical Exam Physical Exam: Patient appears comfortable is good strength testing. Results & Data ([facility]) Vital Signs (Past 12 Hours) Vital Signs Temp Pulse Pulse Pulse Resp BP Pulse Ox 05/09/19 11:24 36.5 C 76 19 112/62 93 05/09/19 07:27 63 05/09/19 07:00 36.4 C L 72 20 115/76 95 05/09/19 04:11 36.6 C 73 18 104/63 94
[2019-05-09] MEDS ORDERED: DEXAMETHASONE SOD PHOSPHATE 8 MG in SYRINGE 0 ML IV ONE (13:45)
[2019-05-09] MEDS: TRAZODONE HCL 50 MG TAB PO SCH (20:26)
[2019-05-09] MEDS: PRAZOSIN HCL 1 MG CAP PO SCH (20:26)
[2019-05-09] MEDS: DOCUSATE SODIUM/SENNA 50/8.6MG TAB PO SCH (20:29)
--- NOTE | 2019-05-09 22:00 | Hospitalist Progress Note ---
Date of Service May 09, 2019 Assessment & Plan (1) Status post lumbar surgery: S/P lumbar decompression / fusion. POD # 2. (2) Hypertension: Continue prazosin. (3) Alcohol use: Last drink about 3 days ago. No withdrawal symptoms, but appears to be a bit anxious. Continue alcohol withdrawal protocol with gabapentin. (4) DVT prophylaxis: Per Ortho Spine. (5) Encounter for consultation: Thank you for this consultation. We will follow the patient with you during their hospital stay. My cell # is [phone]. You can reach a member of the [facility] Medicine Team 25/09 via pager @ [phone]. Admission and Anticipated Discharge Date Admission Date: May 07, 2019 Subjective Recheck for medical management. Patient seen in their room around 1610. Doing well except for postop back pain. Ambulating. Last consumption of alcohol was about 3 days ago. No alcohol withdrawal symptoms. Review of Systems: Constitutional- no fever. Cardiac- no chest pain. Pulmonary- no cough or SOB. GI- no nausea, vomiting, diarrhea, melena, hematochezia. - no urinary symptoms. Otherwise, as noted above. Physical Exam Constitutional: no acute distress Eyes: + anicteric sclerae Respiratory: no respiratory distress Auscultation: lungs clear to auscultation bilaterally Cardiovascular: Rate/Rhythm: regular rate and regular rhythm Heart Sounds: no gallop, no murmur and no cardiac rub Vessels: no JVD Extremities: no calf tenderness and no edema Gastrointestinal (Abdomen): normal bowel sounds, soft, nontender, no hepatosplenomegaly Skin: no rashes, warm and dry Neurologic: mild tremor of hands Psychiatric: Orientation: alert and oriented x 3 Results & Data ([facility]) Vital Signs (Past 12 Hours) Vital Signs Temp Pulse Pulse Pulse Resp BP BP 05/09/19 19:20 36.5 C 69 18 156/74 H 05/09/19 15:16 76 05/09/19 15:11 36.8 C 75 16 110/70 05/09/19 11:24 36.5 C 76 19 112/62 Pulse Ox 05/09/19 19:20 96 05/09/19 15:16 05/09/19 15:11 94 05/09/19 11:24 93
[2019-05-10] MEDS: OXYCODONE HCL IR 5 MG TAB (IMMEDIATE RELEASE) PO PRN ×2 (04:00→08:40)
[2019-05-10] MEDS: GABAPENTIN 600 MG TAB PO SCH (06:17)
[2019-05-10] MEDS: FOLIC ACID 1 MG TAB PO SCH (08:39)
[2019-05-10] MEDS: lamoTRIgine 100 MG TAB PO SCH (08:39)
[2019-05-10] MEDS: THIAMINE HCL 100 MG TAB PO SCH (08:39)
[2019-05-10] MEDS: DULOXETINE HCL 60 MG CAP PO SCH (08:40)
[2019-05-10] MEDS: CHOLECALCIFEROL 1,000 UNITS 25 MCG TAB PO SCH (08:40)
[2019-05-10] MEDS: PREGABALIN 150 MG CAP PO SCH (08:43)
--- NOTE | 2019-05-10 09:22 | Discharge Summary ---
Date of Service May 10, 2019 Admission HPI Per Admitting Provider This is a 39-year-old male who presents with back and bilateral leg pain. After failing extensive course of nonoperative care is here for surgical invention. Principal Diagnosis Lumbar spinal stenosis with neurogenic claudication Discharge Data Allergies Allergy/AdvReac Type Severity Reaction Status Date / Time No Known Allergies Allergy Verified 05/07/19 11:47 Consultations 05/07/19 16:59 Consult Case Management - Discharge Planning Routine Consult Hospitalist Routine Procedures Performed Operation Date: 05/07/19 13:15 Actual Procedures p L4-S1 Decompression and Fusion, Spinal Cord Monitoring, Application of Bone Infuse and Allograft, Placement of Interbody L4-S1 - Robert Kessler DO Ordered Studies 05/07/19 13:15 FL fluoroscopy <1hr Routine FL lumbar spine 2-3V Routine Hospital Course (1) Neurogenic claudication due to lumbar spinal stenosis: Patient underwent multilevel lumbar decompression fusion tolerated this well was taken to the ICU postoperatively. He did well postoperatively 1 back leg symptoms improving progressed to postop day #2 on postop day #3 GARRET drain decreased appropriately. Excellent strength testing. Pain well controlled. Subsequently discharged home. Discharge orders instructions from the chart for further review. Total Time Total Time Spent Total Time Spent (In Minutes): 20 minutes Discharge Plan Discharge Items Patient Disposition: Home - Self-Care Reason For Visit: Radiculopathy, Lumbar Region Discharge Diagnosis: Lumbar spinal stenosis with radiculopathy Activity: As commented below Non-emergency contact: Primary Care Provider Call non-emergency contact if: you have any medication questions Follow-up/Referrals: Brigid Tamez PA-C [Primary Care Provider] - Diet: Regular Addtl Attending Provider Instructions: ACTIVITY RECOMMENDATIONS: SELF CARE INSTRUCTIONS AFTER THORACIC/LUMBAR FUSIONS 1. You may walk to your tolerance. It is good exercise for your legs and back. Expect some back and intermittent leg aches and pains. 2. You may perform "counter-top" level activities (make a sandwich, macario with a project, etc.). 3. No bending or lifting of more than 10 pounds or back twisting of any nature (roll like a log when turning in bed). 4. You may ride in a car for 20-30 minutes at a time. No driving until after your first visit with your doctor. 5. Frequent changes of position and restricting sitting to 30 minutes at a time will help limit the amount of back spasms and stiffness you may experience. 6. You may discontinue the use of ambulatory aids (cane, crutches, etc.) once your strength and confidence allow. 7. You may line installation supervisor the shower and let water strike your incision when you arrive home at least once daily. Do not take a tub bath, sit in a hot tub or go into a swimming pool until after your first recheck in the office. SPECIAL CARE INSTRUCTIONS: VERY IMPORTANT TO READ AND REVIEW A. Your surgical incision has been closed with a cosmetic suture under the skin that will dissolve in about 6 weeks. In 14 days, you can use a pair of clean scissors and cut the suture that is left outside of the skin at the ends of your incision. 1. The small skin tapes can be removed 7 days after surgery if they have not fallen off by that point. 2. You may keep the wound open to air as much as possible to promote healing after post-op day number 5 unless told otherwise by your doctor. 3. If you think the wound looks like it is becoming infected (redness or worsening drainage) and/or you are experiencing fever, chill or worsening back pain and muscle spasms, contact the office so that we may evaluate you as soon as possible. B. Complications are uncommon, but please contact us if you have any signs or symptoms of: 1. wound infection (fever higher than 102.5 degrees F, redness, separation of wound, drainage, or increasing pain from the incision) 2. blood clots in legs (pain, swelling, redness and warmth in legs) 3. urinary tract infection (fever higher than 102.5 degrees F, burning upon urination or increased frequency of urination) 4. nerve problems (inability to walk on your toes or heels, numbness, loss of bowel or bladder control) 5. any other symptoms that concern you C. Please call the office at if you have any concerns or questions about your operation or recovery. D. No smoking! Smoking drastically decreases the chance of a solid fusion. E. Do not take any anti-inflammatory medications (Indocin, Advil, Motrin, Aspirin, Naprosyn, etc.) as these may inhibit the chance of a solid fusion. Tylenol is okay to take for pain. MANAGING PAIN AFTER SPINAL SURGERY 1. Narcotic medication is intended for short-term use and will be provided for surgical pain. Surgical pain usually lasts for a period of 4-6 weeks. Narcotic medication includes Percocet, Vicodin, Darvocet, Tylenol #3 or Lortab. 2. Longer-term pain is more appropriately treated with non-narcotic medication such as Tylenol ES. 3. Muscle spasm is not appropriately treated with narcotics. Muscle relaxers such as Soma, Flexeril or Skelaxin can be used along with Tylenol ES. 4. Remember that we all live with some "aches and pains". This is not unusual or uncommon after an injury or as we get older. a. Back pain is expected and may include muscle spasms for 4 to 6 weeks after surgery. The pain should gradually improve. If the pain worsens for no apparent reason, please contact the office. b. Intermittent leg pain may also be experienced and should not be concerned about unless it worsens for no apparent reason. If so, please contact the office. 5. We will provide appropriate medication within the normal guidelines of their prescribed use. We will also be very cautious and aware of potential abuse and extended duration of patients' medication needs. a. Pain medications are for your comfort and to assist with sleep and rest so that the tissue can heal. They are not provided in order to return to normal activity and should not be used through the day. To do so or worsening pain at night can result from ongoing tissue damage and development of tolerance to the prescribed medicine. 6. Please allow 2-3 days to process refills. Prescriptions will not be mailed but must be picked up at the office. FOLLOW UP VISIT: Keep your scheduled follow-up appointment. Any questions, please call the office at . Pending Studies at Discharge: No Stand-Alone Forms: My [employer], Smoking Cessation Medications and DC Order Prescriptions: New oxycodone 5 mg tablet 5 mg PO Q6H PRN (Reason: pain, severe) Qty: 20 RF: 0 tramadol 50 mg tablet 50 mg PO Q6H PRN (Reason: pain, moderate) Qty: 20 RF: 0 Continued trazodone 50 mg Tablet 25 mg PO HS RF: 0 magnesium 30 mg Tablet 30 mg PO BID RF: 0 lamotrigine [Lamictal] 100 mg Tablet 100 mg PO BID RF: 0 lisinopril-hydrochlorothiazide 20-12.5 mg Tablet 1 tab PO QAM RF: 0 prazosin 5 mg Capsule 5 mg PO HS RF: 0 duloxetine 60 mg Capsule,Delayed Release(Dr/Ec) 120 mg PO QAM RF: 0 pregabalin 300 mg Capsule 300 mg PO BID RF: 0 cholecalciferol (vitamin D3) [Vitamin D3] 2,000 unit Capsule 2,000 unit PO QAM RF: 0 Discharge Orders: Discharge Order (Routine); Ordered 05/10/19 Ordered By: Robert Kessler Admission Data Admit Date/Time: 05/07/19 15:45 Attending Provider: Robert Kessler Admit Provider: Robert Kessler Primary Care Provider: Brigid Tamez Other Providers: Timo Leach ; [employer]
[2019-05-11] MEDS ORDERED: GABAPENTIN 600 MG TAB PO SCH (06:00)
== END 2019-05-10 11:18 | disposition home health service (06) | DRG 455 ==
LOC: ASU 10:53 → 3E 15:45 → 2E 17:54

== ENCOUNTER 2019-12-01 22:17 | Inpatient (IN) ==
[2019-12-02 00:14] LABS: Basophils # (auto) 0.12 K/uL (0-0.2); Basophils % (auto) 1.9 %; Eosinophils # (auto) 0.22 K/uL (0-0.5); Eosinophils % (auto) 3.4 %; Hematocrit (blood only) 52.1 % (42-52); Hemoglobin 17.8 g/dL (14.0-18.0); Immature Granulocytes # (auto) 0.02 K/uL (0.00-0.02); Immature Granulocytes % (auto) 0.3 %; Lymphocytes % (auto) 35.9 %; Mean Corpuscular Hemoglobin 28.7 pg (25-34); Mean Corpuscular Hgb Conc 34.2 g/dL (32-36); Mean Platelet Volume 10.9 fL (7.4-10.4); Monocytes # (auto) 0.42 K/uL (0.11-0.59); Monocytes % (auto) 6.6 %; Neutrophils # (auto) 3.32 K/uL (1.4-6.5); Neutrophils % (auto) 51.9 %; Platelet Count 172 K/uL (130-400); RDW Coefficient of Variation 16.3 % (11.5-14.5); RDW Standard Deviation 49.6 fL (36.4-46.3)
[2019-12-02 00:17] LABS: Appearance Urine Clear (Clear); Bacteria Urine Automated Negative (Negative); Bilirubin Urine Negative (Negative); Blood Urine Negative (Negative); Cast Urine Automated 0 /lpf (0-5); Color Urine Yellow; Epithelial Cell Urine Auto 0-5 /lpf (0-5); Glucose Urine UA Negative (Negative); Ketones Urine Negative (Negative); Leukocyte Esterase Urine Negative (Negative); Nitrite Urine Negative (Negative); Protein Urine Trace (Negative); RBC Urine Automated 0-4 /hpf (0-4); Specific Gravity Urine 1.008 (1.000-1.030); Urobilinogen Urine Negative (Negative); WBC Urine Automated 0 /hpf (0-5); pH Urine 5.5 (4.5-7.5)
--- NOTE | 2019-12-02 00:28 | Emergency Department Note ---
Impression & Plan Alcohol intoxication, Mood disorder ED Provider Note NAME: NALLELY SELLERS AGE: 39 SEX: M ARRIVES VIA: Ambulance INFORMANT: Patient, his ED PROVIDER(S): Mira Ritter DO CHIEF COMPLAINT: "I am at the end of my rope" PLAN: Disposition: The patient was admitted to 3 S. Condition: Good MEDICAL DECISION MAKING: This is a 39-year-old male patient with a history of alcoholism, depression, and seizures who presents to the emergency department after his called the [place] [facility] stating that her felt helpless and depressed. The patient is an alcoholic and had drank his typical 8 beers today. The patient was evaluated here in the emergency department and was medically cleared. After evaluation by the ED psychiatric case operator, he was willing to admit himself voluntarily for further inpatient psychiatric care. He was accepted to 3 S. Triage Nursing notes reviewed and agree them. Additional history obtained from patient's who was at the bedside and polic e Prior medical records reviewed Vital Signs: reviewed and unremarkable Differential diagnosis: Alcohol intoxication, mood disorder, suicidal ideation, thought disorder, posttraumatic stress disorder ER treatment provided: Nicorette gum Laboratory studies: See below HPI: 39/M arrives for evaluation of feelings of depression. The patient has a history of alcoholism and depression. 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 He explained to me that he feels like he is at the end of his rope and needs help mentally. He states that he feels that he cannot leave his home unless he drinks alcohol because he is afraid to interact with people. He denies suicidal or homicidal thoughts but admits that he needs help. ROS: See above HPI for pertinent positives & negatives. A total of 10 systems reviewed and were otherwise negative. 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 Extraocular eye muscles are intact, and sclera are anic teric. Nose - moist nasal mucosa without discharge. Mouth - moist buccal mucosa. Oropharynx is nonerythematous and there is no tonsillar exudate or edema noted. Neck: Supple; no JVD, nuchal rigidity, cervical lymphadenopathy. Heart: Regular rate and rhythm. There is a normal S1 and S2 with no murmurs, clicks, or gallops appreciated. Lungs: Clear to auscultation bilaterally with no wheezes, rales, or rhonchi. Abdomen: Soft, completely nontender, nondistended, with good bowel sounds. There are no palpable pulsatile masses or hepatosplenomegaly. There is no guarding, rigidity, or rebound noted. Extremities: No evidence of cyanosis, clubbing, or edema. There are easily palpable peripheral pulses. Skin: warm and dry with good turgor and no rashes. Psych: The patient smells of alcohol and appears intoxicated. He has an elevated affect at times. He makes good eye contact. ED COURSE: Times/Reassessments: 2315: Patient was evaluated in room a 7. A complete history and physical was performed. Previous electronic medical records were reviewed. Laboratory studies were drawn as above. Some of the history was obtained from the patient's who was at the bedside. The patient was cooperative throughout his stay here in the emergency department. Once he was medically cleared, he was evaluated by the ED psychiatric case operator. The patient began to feel somewhat anxious about not being able to smoke his usual cigars. He was given Nicorette gum. The ED psychiatric case operator also felt the patient would benefit from inpatient psychiatric care. He was willing to admit himself voluntarily for that care. Mira Ritter DO Past Med/Surg History Medical History Alcohol use disorder Chronic back pain Degenerative disc disease Depression Hypertension Memory deficit SHORT TERM ISSUES Recurrent umbilical hernia Seizure ABSENCE SZS- QUESTIONABLE SZ 04/20/19- FOLLOWS WITH NEURO- NEURO AWARE AND ACTUALLY CLEARED PATIENT FOR LUMBAR SURGERY 05/07/19 (PT HAD BEEN WELL CONTROLLED X TWO YEARS- SZ QUESTIONABLE DUE TO ALCOHOL INTOXICATION) Seizure disorder TBI (traumatic brain injury) OCCURED IN . Tobacco use disorder Surgical History (Updated 12/02/19 @ 15:30 by Aliyah Black PA-C) H/O umbilical hernia repair (11/13/19) Diagnostic Laparoscopy, Enterolysis, Open repair of Recurrent Umbilical Hernia Repair with mesh(Right) - DO randolph Nguyễn Laparoscopic Appendectomy Dr. Holliday 11/13/19 History of appendectomy Diagnostic Laparoscopy, Enterolysis, Open repair of Recurrent Umbilical Hernia Repair with mesh(Right) - DO randolph Nguyễn Laparoscopic Appendectomy History of bilateral carpal tunnel release History of discectomy LUMBAR History of surgery tendon release bilateral legs Hx of foot surgery X2 Hx of hernia repair X3 Status post lumbar surgery Family History Grandfather (Paternal) Family history of diabetes mellitus Social History Smoking Status: Current every day smoker Tobacco Type: Cigars Cigarettes Per Day: 2-3; Second Hand Exposure: Yes; Hx Alcohol Use: Yes Alcohol type: beer Alcohol Intake Frequency Comment: 6-12 beers per day Hx Substance Use: Yes Last Used Substance Other:: MEDICAL MARIJ[place] Substance Use Type Other:: [facility] [employer] Preferred Language: Faroese Communication Ability: Effective Java Mobile Developer Required: No Beliefs That Will Affect Care: None Current Living Situation: Spouse and Family Feels Safe at Home: Yes Assistive Devices: None Allergies Allergies Allergy/AdvReac Type Severity Reaction Status Date / Time No Known Allergies Allergy Verified 11/26/19 10:13 Home Meds Home Medications Medication Instructions Recorded Confirmed cholecalciferol (vitamin D3) 2,000 unit PO QAM 05/20/18 12/01/19 [Vitamin D3] duloxetine 120 mg PO QAM 05/20/18 12/01/19 lamotrigine [Lamictal] 100 mg PO BID 05/20/18 12/01/19 lisinopril-hydrochlorothiazide 1 tab PO QAM 05/20/18 12/01/19 magnesium 400 mg PO BID 05/20/18 12/01/19 prazosin 5 mg PO HS 05/20/18 12/01/19 pregabalin 300 mg PO BID 05/20/18 12/01/19 trazodone 50 mg PO HS 05/20/18 12/01/19 calcium carbonate 500 mg calcium 500 mg PO QAM 07/07/19 12/01/19 (1,250 mg) tablet Results & Data (ED) Vital Signs Vital Signs - 24 hr 09/28/20 22:25 Temperature 37 C Temperature Source Oral Pulse Rate 97 H Respiratory Rate 20 Blood Pressure 146/104 H Blood Pressure Mean 118 Blood Pressure Position Sitting Pulse Oximetry 96 Oxygen Delivery Method Room Air Sepsis Recent Fever Within 48 Hours No Sepsis New/Unexplained Change in Mental Status N/A Sepsis Action Taken by Nursing No Action Required Laboratory Data Result diagrams: 12/02/19 00:00 12/02/19 00:00 Lab Results 12/01/19 12/01/19 12/02/19 Range/Units 22:30 22:30 00:00 WBC 6.40 (4.8-10.8) K/uL RBC 6.20 H (4.7-6.1) M/uL Hgb 17.8 (14.0-18.0) g/dL Hct 52.1 H (42-52) % MCV 84.0 (80-100) fL MCH 28.7 (25-34) pg MCHC 34.2 (32-36) g/dL RDW Std Deviation 49.6 H (36.4-46.3) fL RDW Coeff of Moi 16.3 H (11.5-14.5) % Plt Count 172 (130-400) K/uL MPV 10.9 H (7.4-10.4) fL Immature Gran % (Auto) 0.3 % Neut % (Auto) 51.9 % Lymph % (Auto) 35.9 % Elbert % (Auto) 6.6 % Eos % (Auto) 3.4 % Baso % (Auto) 1.9 % Neut # (Auto) 3.32 (1.4-6.5) K/uL Lymph # (Auto) 2.30 (1.2-3.4) K/uL Elbert # (Auto) 0.42 (0.11-0.59) K/uL Eos # (Auto) 0.22 (0-0.5) K/uL Baso # (Auto) 0.12 (0-0.2) K/uL Immature Gran # (Auto) 0.02 (0.00-0.02) K/uL Sodium (136-145) mmol/L Potassium (3.5-5.1) mmol/L Chloride (98-107) mmol/L Carbon Dioxide (21-32) mmol/L Anion Gap (3-11) BUN (7-18) mg/dl Creatinine (0.6-1.4) mg/dl Est Cr Clr Drug Dosing ml/min Est GFR ( Amer) Est GFR (Non-Af Amer) BUN/Creatinine Ratio (10-20) Glucose (70-99) mg/dl Calcium (8.5-10.1) mg/dl Total Bilirubin (0.2-1) mg/dl AST (15-37) U/L ALT (12-78) U/L Alkaline Phosphatase (45-117) U/L Total Protein (6.4-8.2) gm/dl Albumin (3.4-5.0) gm/dl Globulin (2.5-4.0) gm/dl Albumin/Globulin Ratio (0.9-2) TSH (0.300-4.500) uIu/ml Urine Color Yellow Urine Appearance Clear (Clear) Urine pH 5.5 (4.5-7.5) Ur Specific Hilliard 1.008 (1.000-1.030) Urine Protein Trace H (Negative) Urine Glucose (UA) Negative (Negative) Urine Ketones Negative (Negative) Urine Blood Negative (Negative) Urine Nitrite Negative (Negative) Urine Bilirubin Negative (Negative) Urine Urobilinogen Negative (Negative) Ur Leukocyte Esterase Negative (Negative) Urine WBC (Auto) 0 (0-5) /hpf Urine RBC (Auto) 0-4 (0-4) /hpf U Hyaline Cast (Auto) 0 (0-5) /lpf U Epithel Cells (Auto) 0-5 (0-5) /lpf Urine Bacteria (Auto) Negative (Negative) Salicylates (2.8-20) mg/dl Urine Opiates Screen Neg (Neg) Ur Methadone, Qual Neg (Neg) Acetaminophen (10-30) ug/ml Urine Barbiturates Neg (Neg) Ur Phencyclidine (PCP) Neg (Neg) U Amphetamin/Meth Scrn Neg (Neg) MDMA (Ecstasy) Screen Neg (Neg) U Benzodiazepines Scrn Neg (Neg) Ur Cocaine Metabolite Neg (Neg) U Marijuana (THC) Screen Pos H (Neg) Ethyl Alcohol mg/dL (0-3) mg/dl 12/02/19 12/02/19 12/02/19 Range/Units 00:00 00:00 00:00 WBC (4.8-10.8) K/uL RBC (4.7-6.1) M/uL Hgb (14.0-18.0) g/dL Hct (42-52) % MCV (80-100) fL MCH (25-34) pg MCHC (32-36) g/dL RDW Std Deviation (36.4-46.3) fL RDW Coeff of Moi (11.5-14.5) % Plt Count (130-400) K/uL MPV (7.4-10.4) fL Immature Gran % (Auto) % Neut % (Auto) % Lymph % (Auto) % Elbert % (Auto) % Eos % (Auto) % Baso % (Auto) % Neut # (Auto) (1.4-6.5) K/uL Lymph # (Auto) (1.2-3.4) K/uL Elbert # (Auto) (0.11-0.59) K/uL Eos # (Auto) (0-0.5) K/uL Baso # (Auto) (0-0.2) K/uL Immature Gran # (Auto) (0.00-0.02) K/uL Sodium 139 (136-145) mmol/L Potassium 3.8 (3.5-5.1) mmol/L Chloride 108 H (98-107) mmol/L Carbon Dioxide 24 (21-32) mmol/L Anion Gap 8.0 (3-11) BUN 12 (7-18) mg/dl Creatinine 1.01 (0.6-1.4) mg/dl Est Cr Clr Drug Dosing 121.9 ml/min Est GFR ( Amer) 108.1 Est GFR (Non-Af Amer) 93.3 BUN/Creatinine Ratio 12.2 (10-20) Glucose 96 (70-99) mg/dl Calcium 9.5 (8.5-10.1) mg/dl Total Bilirubin 0.6 (0.2-1) mg/dl AST 41 H (15-37) U/L ALT 63 (12-78) U/L Alkaline Phosphatase 113 (45-117) U/L Total Protein 8.7 H (6.4-8.2) gm/dl Albumin 4.3 (3.4-5.0) gm/dl Globulin 4.4 H (2.5-4.0) gm/dl Albumin/Globulin Ratio 1.0 (0.9-2) TSH 1.870 (0.300-4.500) uIu/ml Urine Color Urine Appearance (Clear) Urine pH (4.5-7.5) Ur Specific Hilliard (1.000-1.030) Urine Protein (Negative) Urine Glucose (UA) (Negative) Urine Ketones (Negative) Urine Blood (Negative) Urine Nitrite (Negative) Urine Bilirubin (Negative) Urine Urobilinogen (Negative) Ur Leukocyte Esterase (Negative) Urine WBC (Auto) (0-5) /hpf Urine RBC (Auto) (0-4) /hpf U Hyaline Cast (Auto) (0-5) /lpf U Epithel Cells (Auto) (0-5) /lpf Urine Bacteria (Auto) (Negative) Salicylates 4.9 (2.8-20) mg/dl Urine Opiates Screen (Neg) Ur Methadone, Qual (Neg) Acetaminophen < 2 L (10-30) ug/ml Urine Barbiturates (Neg) Ur Phencyclidine (PCP) (Neg) U Amphetamin/Meth Scrn (Neg) MDMA (Ecstasy) Screen (Neg) U Benzodiazepines Scrn (Neg) Ur Cocaine Metabolite (Neg) U Marijuana (THC) Screen (Neg) Ethyl Alcohol mg/dL 155.5 H (0-3) mg/dl Administered Medications Calcium Carbonate (Calcium Carbonate 500 Mg Chewable Tab) 500 mg PO [facility] Stop: 01/01/20 08:59 Last Admin: 12/02/19 09:36 Dose: 500 mg Documented by: [id number] Duloxetine HCl (Dulox[facility] Hcl 60 Mg Cap) [facility] [place]: 01/01/20 08:59 Last Admin: 12/02/19 09:33 Dose: 120 mg Documented by: Lisinopril/HCTZ (Lisinopril/Hctz 20/12.5mg 1 Tab Tab) 1 [place] [facility] [place]: 01/01/20 08:59 Last Admin: 12/02/19 09:35 Dose: 1 tab Documented by: [id number] Lamotrigine (Lamotrigine 100 Mg Tab) 100 mg PO BID [facility] Stop: 01/01/20 08:59 Last Admin: 12/02/19 20:48 Dose: 100 mg Documented by: [id number] Admin: 12/02/19 09:34 Dose: 100 mg Documented by: [id number] Miscellaneous (Remove Nicoderm Patch) 1 ea N/A [id number] [facility] Stop: 01/01/20 08:58 Last Admin: 12/02/19 09:41 Dose: Not Given Documented by: [id number] Nicotine (Nicotine 7 Mg/24 Hr Tdsy) 7 mg TD QAM [facility] Stop: 01/01/20 08:59 Last Admin: 12/02/19 09:41 Dose: Not Given Documented by: [id number] Nicotine Polacrilex (Nicotine Polacrilex 2 Mg Gum) 1 piece MT Q1H PRN PRN Reason: nicotine cravings Stop: 01/01/20 09:44 Last Admin: 12/02/19 20:54 Dose: 1 piece Documented by: [id number] Admin: 12/02/19 18:21 Dose: 1 piece Documented by: [id number] Admin: 12/02/19 13:13 Dose: 1 piece Documented by: [id number] Admin: 12/02/19 10:40 Dose: 1 piece Documented by: [id number] Prazosin HCl (Prazosin Hcl 1 Mg Cap) 5 mg PO HS [facility] Stop: 01/01/20 21:59 Last Admin: 12/02/19 20:48 Dose: 5 mg Documented by: [id number] Pregabalin (Pregabalin 150 Mg Cap) 300 mg PO BID [facility] Stop: 01/01/20 08:59 Last Admin: 12/02/19 20:48 Dose: 300 mg Documented by: [id number] Admin: 12/02/19 09:35 Dose: 300 mg Documented by: [id number] Vitamin D (Cholecalciferol 1,000 Units 25 Mcg Tab) 2,000 units PO QAM [facility] Stop: 01/01/20 08:59 Last Admin: 12/02/19 09:36 Dose: 2,000 units Documented by: [id number] Discontinued Medications Amlodipine Besylate (Amlodipine Besylate 5 Mg Tab) 5 mg PO NOW ONE Stop: 12/02/19 14:37 Last Admin: 12/02/19 16:14 Dose: 5 mg Documented by: [id number] Nicotine Polacrilex (Nicotine Polacrilex 2 Mg Gum) Confirm Administered Dose 1 piece MT .STK-MED ONE Stop: 12/02/19 03:23 Last Admin: 12/02/19 03:23 Dose: 1 piece Documented by: [id number] Discharge Plan Visit Data Chief Complaint: Mental Health Evaluation Stated Complaint: [facility]ID ED Provider: Mira Ritter Discharge Problem: Alcohol intoxication, Mood disorder Patient Disposition: Admitted As Inpatient Discharge Instructions Interventions: ED Discharge Assessment Last Done: 12/02/19 05:24 Discharge Problem: Alcohol intoxication Qualifiers: Complication of substance-induced condition: uncomplicated Qualified Code(s): F10.920 - Alcohol use, unspecified with intoxication, uncomplicated
[2019-12-02 00:29] LABS: Albumin Level 4.3 gm/dl (3.4-5.0); BUN Creatinine Ratio 12.2 (10-20); Calcium 9.5 mg/dl (8.5-10.1); Creatinine Clr Calc Pharmacy 121.9 ml/min; Est GFR (African American) 108.1; Est GFR (Non-African American) 93.3; Potassium 3.8 mmol/L (3.5-5.1)
[2019-12-02 00:39] LABS: Amphetamines+Metham, Urine Neg (Neg); Barbiturates, Urine Neg (Neg); Benzodiazepine, Urine Neg (Neg); Cocaine, Urine Neg (Neg); MDMA (Ecstacy), Urine Neg (Neg); Methadone, Urine Neg (Neg); Opiate, Urine Neg (Neg); Phencyclidine, Urine Neg (Neg)
[2019-12-02 00:40] LABS: Bilirubin,Total 0.6 mg/dl (0.2-1); Globulin 4.4 gm/dl (2.5-4.0); Thyroid Stimulating Hormone 1.87 uIu/ml (0.300-4.500); Total Protein 8.7 gm/dl (6.4-8.2)
[2019-12-02 00:42] LABS: Acetaminophen < 2 ug/ml (10-30); Salicylate 4.9 mg/dl (2.8-20)
[2019-12-02] MEDS ORDERED: NICOTINE POLACRILEX 2 MG GUM MT ONE (03:22)
[2019-12-02] MEDS ORDERED: ALUMINUM/MAGNESIUM SUSP 30 ML UDC PO PRN (04:52)
[2019-12-02] MEDS ORDERED: LORazepam 1 MG TAB PO PRN (04:52)
[2019-12-02] MEDS ORDERED: SODIUM CHLORIDE 0.65% NA SOLN 45 ML (OCEAN) PRN (04:52)
[2019-12-02] MEDS ORDERED: ACETAMINOPHEN 325 MG TAB PO PRN (04:52)
[2019-12-02] MEDS ORDERED: BISMUTH SUBSALICYLATE LIQD 236 ML PO PRN (04:52)
[2019-12-02] MEDS ORDERED: MAGNESIUM HYDROXIDE SUSP 30 ML UDC PO PRN (04:52)
[2019-12-02] MEDS: DULOXETINE HCL 60 MG CAP PO SCH (09:33)
[2019-12-02] MEDS: lamoTRIgine 100 MG TAB PO SCH ×2 (09:34→20:48)
[2019-12-02] MEDS: LISINOPRIL/HCTZ 20/12.5MG 1 TAB TAB PO SCH (09:35)
[2019-12-02] MEDS: PREGABALIN 150 MG CAP PO SCH ×2 (09:35→20:48)
[2019-12-02] MEDS: CALCIUM CARBONATE 500 MG CHEWABLE TAB PO SCH (09:36)
[2019-12-02] MEDS: CHOLECALCIFEROL 1,000 UNITS 25 MCG TAB PO SCH (09:36)
[2019-12-02] MEDS: NICOTINE 7 MG/24 HR TDSY TD SCH (09:41)
[2019-12-02] MEDS: NICOTINE POLACRILEX 2 MG GUM MT PRN ×4 (10:40→20:54)
--- NOTE | 2019-12-02 11:20 | History & Physical ---
Date of Service December 02, 2019 Impression / Recommendations Impression 89-year-old male with a history of depression, PTSD, alcohol dependence, and TBI with cognitive impairment who presented with worsening mood and suicidal ideation in the context of psychosocial stressors and increasing alcohol use. He was admitted voluntarily, continued on home medications including duloxetine and prazosin, and is willing for inpatient rehab. Inpatient treatment is medically necessary at this time due to the severity of symptoms and risk for suicide if discharged prematurely. (1) Depression: 12/01 -continue duloxetine 120 mg daily, and [facility] -Attending participating groups and therapy, work on healthy coping skills and discharge safety plan. (2) Alcohol abuse: 12/01 -continue AWSS protocol with Ativan as needed for withdrawal symptoms. -Recovery protocol. -Patient willing for inpatient rehab, [facility]. -Recommend avoiding prescription of controlled substances given the high risk of abuse/misuse/negative outcomes. 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 -Brief intervention was offered and accepted Intervention was greater than 5 min in length. Brief interventions include: 1. Assess Readiness to Quit, 2. Advise: Help Patient to Reduce or Abstain from Alcohol, 3. Agree: Set Specific, Feasible Goals, 4. Assist: Anticipate barriers, Problem-Solving Solutions. Social work to 5. Arrange: Referrals to appropriate treatment. Summary of intervention: The patient is in contemplation stage with regards to transtheoretical model of change. The patient is advised to decrease alcohol consumption due to depressant effects and risk of interactions with prescription medications. The patient agreed to inpatient rehab and will be provided with recovery materials to continue to education self on how to cope with their condition without drinking. (3) Post-traumatic stress disorder, unspecified: 12/01 -continue SNRI and prazosin, resume outpatient therapy once inpatient rehab is completed. Could benefit from more intensive outpatient therapy. (4) Insomnia, unspecified: 12/01 -continue home dose of trazodone, provide education regarding sleep hygiene and importance of addressing his alcoholism in order to improve sleep. (5) Hypertension: 12/01 -continue home dose of lisinopril/hydrochlorothiazide, monitor blood pressure and consider need for hospitalist consult if it remains elevated. Denies cardiovascular symptoms currently. Elevation likely impacted by anxiety of admission and alcohol withdrawal. (6) Tobacco use: 12/01 -smoking cessation education provided, offer patch and gum as needed for cravings. Refer to rehab for ongoing addiction treatment. (7) Fibromyalgia: 12/01 -continue home dose of pregabalin. (8) Seizure: 12/01 -continue home dose of lamotrigine. Risk Factors Assessment Male: Yes : Yes Do You Have Access To A Gun?: No Health Problems: Yes Mental Health Diagnoses: Yes Substance Use Disorders: Yes Previous Attempt: No Family History of Suicide: No Previous Psychiatric Hospitalization: No Hopelessness: Yes Smoker: Yes Protective Factors Assessment : Yes Responsible for Young Children: Yes Employed: No Stable Relationships: Yes Supportive Family: Yes Psychiatric History Identifying Data NALLELY SELLERS is a 39-year-old M who currently lives in [place] with his , has a history of depression, alcohol abuse, and PTSD, and was admitted on 12/02/19 04:52 on a 201 voluntary commitment for depression and SI. Chief Complaint "Yesterday I just got to the point in my head where I was just done, just done". 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 He said he is unable to leave his home unless he drinks alcohol because he is afraid to interact with people. He was intoxicated with a BAL of 155. UDS + THC. AST 41. He was brought in by police who completed a 302 warrant stating: "Nallely's , Carly, called [employer] because Nallely was acting manic in the house and pacing around. [employer] contacted dispatch and requested officers respond to the house. Nallely was outside with his pacing in the front yard yelling that he needs help, he can't do life anymore and he can't take it anymore. Nallely made statements that he fakes a smile everyday, but now he has had it. Nallely was intoxicated and drank multiple beverages according to his . Nallely discussed that police presence scares him and he does not like guns." In the ER, he reported a history of TBI and PTSD related to his time in [employer]. He reported extreme anxiety when leaving his house, which has worsened his alcoholism. He reported drinking 8-12 beers/day, and was started on the AWSS protocol. He reported depressed mood, hopelessness, helplessness, poor motivation, and difficulty functioning. He reports having suicidal thoughts over the past 6 months, with plans to hang himself or overdose on pills, but denied any on presentation. 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 Although he is supposed to have weekly therapy, he had not seen his therapist in 2 weeks. [facility]. On my assessment, he reports mood and anxiety have been worsening for months, he has been isolating at home, and although he likes talking to people, he fears it and avoids going out of his house unless he is drunk. States he became overwhelmed yesterday after interactions with his , "she was coming at me, I try to do everything, just felt horrible." States he felt like a failure, hopeless and helpless. He started drinking at 4pm and had 4 16-oz IPAs (9% alcohol), which he says is a normal amount for him to drink, but says his told him to switch to alcoholic seltzer "because it's healthier." He drinks at least 5 beverages daily, more on Sundays. 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 His psychiatrist prescribes trazodone, prazosin, and duloxetine, and neurologist prescribes lamotrigine for seizure disorder; denies any recent medication changes. He thinks mood has been worsening for months, "just a downward spiral." Denies manic and psychotic symptoms, reports daily anxiety, fear of leaving the house, feels on edge, erratic sleep patterns, doesn't like yelling (states often yells), and nightmares (which he can't recall when wakes up). He denies anger outbursts, "just last night, when my head blew up, and I was just done." States he is usually "just a laid back person." States he uses medical marijuana but hasn't been able to get consistent products which "is a stressor for me." He is interested in inpatient rehab, and wants to work on self esteem and "proper coping skills." Past Psychiatric History Current Psychiatric Diagnosis: PTSD, Substance Abuse (alcohol), TBI Outpatient Services: Psychiatrist, Dr. Blanc, and therapist, Roberta, at [facility]. Previous Psych Admissions: [facility] in [place], [place] in 2004 for detox off fentanyl (states was not a psych unit) Do You Have Access To A Gun?: No History of Previous Suicide Attempt: No Past Medication Trials: "Probably just about everything out there," including but not limited to: quetiapine - "horrible" duloxetine - has worked the best bupropion Past Head Trauma/Neuro History History of Concussion/Seizure: Yes TBI Allergies Allergy/AdvReac Type Severity Reaction Status Date / Time No Known Allergies Allergy Verified 11/26/19 10:13 Home Medications Home Medications Medication Instructions Recorded Confirmed Type cholecalciferol (vitamin D3) 2,000 unit PO QAM 05/20/18 12/01/19 History [Vitamin D3] duloxetine 120 mg PO QAM 05/20/18 12/01/19 History lamotrigine [Lamictal] 100 mg PO BID 05/20/18 12/01/19 History lisinopril-hydrochlorothiazide 1 tab PO QAM 05/20/18 12/01/19 History magnesium 400 mg PO BID 05/20/18 12/01/19 History prazosin 5 mg PO HS 05/20/18 12/01/19 History pregabalin 300 mg PO BID 05/20/18 12/01/19 History trazodone 50 mg PO HS 05/20/18 12/01/19 History calcium carbonate 500 mg calcium 500 mg PO QAM 07/07/19 12/01/19 History (1,250 mg) tablet Family History Family History of: Depression, Anxiety and Bipolar Family Mental Health History Comment: both brothers with depression and anxiety, sister with bipolar disorder Alcohol History Hx of Alcohol Use Over the Past 12 Months: Yes (8+ beers or malt beverages /day) AUDIT Total Score: 28 Has been able to maintain sobriety for 6-12 months, last in 2008 Smoking Use Have You Smoked or Used Tobacco Products in the Last 30 Days: Yes tobacco type: cigars Smoking Status: Current every day smoker Substance History Hx of Prescription Med Misuse Over the Past 12 Months: No Hx of Over the Counter Med Misuse Over the Past 12 Months: No Hx of Inhalent Misuse Over the Past 12 Months: No Hx of Organic Substance Use Over the Past 12 Months: Yes (Daily THC - states he has a medical marijuana card for TBI, fibromyalg) Hx of Illegal Substances/Street Drug Use Over Past 12 Months: No Problems as a Result of Past Substance Use: Other (Hospitalization, worsening SI, detox) Personal History Living Arrangements: Home Living Arrangements Comments: living with and 16 year old daughter in [place], and son who just went to college at [employer] Childhood: Raised by both parents who live in [place]. Has 1 older sister and 2 younger brothers. Closed with brother Alejandro. Highest Grade Completed: College Highest Grade Completed Comment: graduated from [employer] with degree in Human Services and Psychology Employment Status: Unemployed Marital Status: (x 20 years) Number Of Children: 2 -16-year-old daughter and 18-year-old son Beliefs That Will Affect Care: None Current Legal Problems: Yes Legal Problems Comment: business closing "[employer]," due to covid related issues, behind in rent. Hx Legal Problems: Yes ("arrested 5 times for DUIS, 3 assault and batteries for a deadly weapon") Hx Traumatic Life Events: Yes Psychological Trauma History Comment: Patient History Medical History (Updated 12/02/19 @ 12:13 by Tia Peralta MD) Chronic back pain Degenerative disc disease Depression Hypertension Memory deficit SHORT TERM ISSUES Post traumatic stress disorder Seizure ABSENCE SZS- QUESTIONABLE SZ 04/20/19- FOLLOWS WITH NEURO- NEURO AWARE AND ACTUALLY CLEARED PATIENT FOR LUMBAR SURGERY 05/07/19 (PT HAD BEEN WELL CONTROLLED X TWO YEARS- SZ QUESTIONABLE DUE TO ALCOHOL INTOXICATION) TBI (traumatic brain injury) OCCURED IN . Surgical History (Updated 11/26/19 @ 10:45 by Ariel Holliday, DO) H/O umbilical hernia repair (11/13/19) Diagnostic Laparoscopy, Enterolysis, Open repair of Recurrent Umbilical Hernia Repair with mesh(Right) - Ariel Holliday, s Laparoscopic Appendectomy Dr. Holliday 11/13/19 History of bilateral carpal tunnel release History of discectomy LUMBAR History of surgery tendon release bilateral legs Hx of appendectomy Diagnostic Laparoscopy, Enterolysis, Open repair of Recurrent Umbilical Hernia Repair with mesh(Right) - Ariel Holliday, s Laparoscopic Appendectomy Hx of foot surgery X2 Hx of hernia repair X3 Family History Grandfather (Paternal) Family history of diabetes mellitus Social History Smoking Status: Current every day smoker Tobacco Type: Cigars Cigarettes Per Day: 2-3; Second Hand Exposure: Yes; Hx Alcohol Use: Yes Alcohol type: beer Alcohol Intake Frequency Comment: 6-12 beers per day Hx Substance Use: Yes Last Used Substance Other:: MEDICAL MARIJUGHENT Substance Use Type Other:: MEDICAL [place] CARD-WILL BRING DOS Preferred Language: Mongolian Communication Ability: Effective Yard Stocker Required: No Beliefs That Will Affect Care: None Current Living Situation: Spouse and Family Feels Safe at Home: Yes Assistive Devices: None Review of Systems Review of Systems: All systems reviewed & are unremarkable except as noted in Subjective Denies alcohol withdrawal symptoms. Physical Exam Psychiatric: Orientation: alert and cooperative Apperance: appropriately dressed and + disheveled Older than stated age, full wood Eye Contact: + fair eye contact Motor Behavior: steady gait and station and no abnormal motor movements Slowed speech Affect: + depressed affect and mood congruent with affect Mood: + depressed mood Thought Process: goal directed thought process slowed, takes Thought Content: + cognitive distortions Suicidal Thoughts: denies suicidal thoughts Homicidal Thoughts: denies homicidal thoughts Hallucinations: no auditory hallucinations and no visual hallucinations Cognition: recent memory grossly intact and language grossly intact Insight: + fair insight Judgement: + fair judgement Vital Signs (Past 24 Hours): Last Vital Signs Temp 36.7 C 12/02/19 10:45 Pulse 62 12/02/19 10:45 Resp 18 12/02/19 10:45 BP 168/105 H 12/02/19 10:45 Pulse Ox 96 12/02/19 10:45 Exam Statement: A physical exam was performed in the ER prior to admission to the unit by Dr. Ritter. I accept that physical as correct/medical clearance for the inpatient physical exam. Results & Data ([facility]) Laboratory Results Laboratory Results - last 24 hr 12/01/19 12/01/19 12/01/19 22:30 22:30 22:30 WBC RBC Hgb Hct MCV MCH MCHC RDW Std Deviation RDW Coeff of Moi Plt Count MPV Immature Gran % (Auto) Neut % (Auto) Lymph % (Auto) [place] % (Auto) Eos % (Auto) Baso % (Auto) Neut # (Auto) Lymph # (Auto) [place] # (Auto) Eos # (Auto) Baso # (Auto) Immature Gran # (Auto) Sodium Potassium Chloride Carbon Dioxide Anion Gap BUN Creatinine Est Cr Clr Drug Dosing Est GFR ( Amer) Est GFR (Non-Af Amer) BUN/Creatinine Ratio Glucose Calcium Total Bilirubin AST ALT Alkaline Phosphatase Total Protein Albumin Globulin Albumin/Globulin Ratio TSH Urine Color Yellow Urine Appearance Clear Urine pH 5.5 Ur Specific [place] 1.008 Urine Protein Trace H Urine Glucose (UA) Negative Urine Ketones Negative Urine Blood Negative Urine Nitrite Negative Urine Bilirubin Negative Urine Urobilinogen Negative Ur Leukocyte Esterase Negative Urine WBC (Auto) 0 Urine RBC (Auto) 0-4 U Hyaline Cast (Auto) 0 U Epithel Cells (Auto) 0-5 Urine Bacteria (Auto) Negative Salicylates Urine Opiates Screen Neg Ur Methadone, Qual Neg Acetaminophen Urine Barbiturates Neg Ur Phencyclidine (PCP) Neg U Amphetamin/Meth Scrn Neg MDMA (Ecstasy) Screen Neg U Benzodiazepines Scrn Neg Ur Cocaine Metabolite Neg U Marijuana (THC) Screen Pos H U Marijuana THC Carboxy Pending Drug Screen Comment Pending Ethyl Alcohol mg/dL 12/02/19 12/02/19 12/02/19 00:00 00:00 00:00 WBC 6.40 RBC 6.20 H Hgb 17.8 Hct 52.1 H MCV 84.0 MCH 28.7 MCHC 34.2 RDW Std Deviation 49.6 H RDW Coeff of Moi 16.3 H Plt Count 172 MPV 10.9 H Immature Gran % (Auto) 0.3 Neut % (Auto) 51.9 Lymph % (Auto) 35.9 [place] % (Auto) 6.6 Eos % (Auto) 3.4 Baso % (Auto) 1.9 Neut # (Auto) 3.32 Lymph # (Auto) 2.30 [place] # (Auto) 0.42 Eos # (Auto) 0.22 Baso # (Auto) 0.12 Immature Gran # (Auto) 0.02 Sodium 139 Potassium 3.8 Chloride 108 H Carbon Dioxide 24 Anion Gap 8.0 BUN 12 Creatinine 1.01 Est Cr Clr Drug Dosing 121.9 Est GFR ( Amer) 108.1 Est GFR (Non-Af Amer) 93.3 BUN/Creatinine Ratio 12.2 Glucose 96 Calcium 9.5 Total Bilirubin 0.6 AST 41 H ALT 63 Alkaline Phosphatase 113 Total Protein 8.7 H Albumin 4.3 Globulin 4.4 H Albumin/Globulin Ratio 1.0 TSH 1.870 Urine Color Urine Appearance Urine pH Ur Specific [place] Urine Protein Urine Glucose (UA) Urine Ketones Urine Blood Urine Nitrite Urine Bilirubin Urine Urobilinogen Ur Leukocyte Esterase Urine WBC (Auto) Urine RBC (Auto) U Hyaline Cast (Auto) U Epithel Cells (Auto) Urine Bacteria (Auto) Salicylates 4.9 Urine Opiates Screen Ur Methadone, Qual Acetaminophen < 2 L Urine Barbiturates Ur Phencyclidine (PCP) U Amphetamin/Meth Scrn MDMA (Ecstasy) Screen U Benzodiazepines Scrn Ur Cocaine Metabolite U Marijuana (THC) Screen U Marijuana THC Carboxy Drug Screen Comment Ethyl Alcohol mg/dL 12/02/19 00:00 WBC RBC Hgb Hct MCV MCH MCHC RDW Std Deviation RDW Coeff of Moi Plt Count MPV Immature Gran % (Auto) Neut % (Auto) Lymph % (Auto) [place] % (Auto) Eos % (Auto) Baso % (Auto) Neut # (Auto) Lymph # (Auto) [place] # (Auto) Eos # (Auto) Baso # (Auto) Immature Gran # (Auto) Sodium Potassium Chloride Carbon Dioxide Anion Gap BUN Creatinine Est Cr Clr Drug Dosing Est GFR ( Amer) Est GFR (Non-Af Amer) BUN/Creatinine Ratio Glucose Calcium Total Bilirubin AST ALT Alkaline Phosphatase Total Protein Albumin Globulin Albumin/Globulin Ratio TSH Urine Color Urine Appearance Urine pH Ur Specific [place] Urine Protein Urine Glucose (UA) Urine Ketones Urine Blood Urine Nitrite Urine Bilirubin Urine Urobilinogen Ur Leukocyte Esterase Urine WBC (Auto) Urine RBC (Auto) U Hyaline Cast (Auto) U Epithel Cells (Auto) Urine Bacteria (Auto) Salicylates Urine Opiates Screen Ur Methadone, Qual Acetaminophen Urine Barbiturates Ur Phencyclidine (PCP) U Amphetamin/Meth Scrn MDMA (Ecstasy) Screen U Benzodiazepines Scrn Ur Cocaine Metabolite U Marijuana (THC) Screen U Marijuana THC Carboxy Drug Screen Comment Ethyl Alcohol mg/dL 155.5 H Current Inpatient Medications Current Inpatient Medications: Current Inpatient Medications Acetaminophen (Acetaminophen 325 Mg Tab) 650 mg PO Q4H PRN PRN Reason: Headache or Minor Fever Stop: 01/01/20 04:51 Al Hydrox/Mg Hydrox/Simethicone (Aluminum/Magnesium Susp 30 Ml Udc) 30 ml PO Q4H PRN PRN Reason: GI Upset Stop: 01/01/20 04:51 Bismuth Subsalicylate (Bismuth Subsalicylate Liqd 236 Ml) 15 ml PO PRN PRN PRN Reason: Loose Stool Stop: 01/01/20 04:51 Calcium Carbonate (Calcium Carbonate 500 Mg Chewable Tab) 500 mg PO QAM [facility] Stop: 01/01/20 08:59 Last Admin: 12/02/19 09:36 Dose: 500 mg Documented by: Duloxetine HCl (Duloxetine Hcl 60 Mg Cap) 120 mg PO QAM [facility] Stop: 01/01/20 08:59 Last Admin: 12/02/19 09:33 Dose: 120 mg Documented by: Lisinopril/HCTZ (Lisinopril/Hctz 20/12.5mg 1 Tab Tab) 1 tab PO QAM [facility] Stop: 01/01/20 08:59 Last Admin: 12/02/19 09:35 Dose: 1 tab Documented by: Hydroxyzine HCl (Hydroxyzine Hcl 25 Mg Tab) 25 mg PO Q4H PRN PRN Reason: Anxiety Stop: 01/01/20 04:51 Lamotrigine (Lamotrigine 100 Mg Tab) 100 mg PO BID [facility] Stop: 01/01/20 08:59 Last Admin: 12/02/19 09:34 Dose: 100 mg Documented by: Lorazepam (Lorazepam 1 Mg Tab) 1 mg PO ONE PRN; Protocol PRN Reason: EtoH Withdrawal AWSS 6-10 Magnesium Hydroxide (Magnesium Hydroxide Susp 30 Ml Udc) 30 ml PO DAILY PRN PRN Reason: Constipation Stop: 01/01/20 04:51 Miscellaneous (Remove Nicoderm Patch) 1 ea N/A DAILY@[id number] [facility] Stop: 01/01/20 08:58 Last Admin: 12/02/19 09:41 Dose: Not Given Documented by: Nicotine (Nicotine 7 Mg/24 Hr Tdsy) 7 mg TD QAM [facility] Stop: 01/01/20 08:59 Last Admin: 12/02/19 09:41 Dose: Not Given Documented by: Nicotine Polacrilex (Nicotine Polacrilex 2 Mg Gum) 1 piece MT Q1H PRN PRN Reason: nicotine cravings Stop: 01/01/20 09:44 Last Admin: 12/02/19 10:40 Dose: 1 piece Documented by: Prazosin HCl (Prazosin Hcl 1 Mg Cap) 5 mg PO HS [facility] Stop: 01/01/20 21:59 Pregabalin (Pregabalin 150 Mg Cap) 300 mg PO BID [facility] Stop: 01/01/20 08:59 Last Admin: 12/02/19 09:35 Dose: 300 mg Documented by: Sodium Chloride (Sodium Chloride 0.65% Na Soln 45 Ml ([place])) 1 - 2 sprays NA PRN PRN PRN Reason: Nasal Dryness/Congestion Stop: 01/01/20 04:51 Vitamin D (Cholecalciferol 1,000 Units 25 Mcg Tab) 2,000 units PO QAM [facility] Stop: 01/01/20 08:59 Last Admin: 12/02/19 09:36 Dose: 2,000 units Documented by:
[2019-12-02] MEDS ORDERED: AMLODIPINE BESYLATE 5 MG TAB PO ONE (14:36)
--- NOTE | 2019-12-02 15:23 | Hospitalist Consultation ---
Date of Consultation December 02, 2019 Assessment & Plan (1) Hypertension: This is a 39-year-old male with PMH of depression, PTSD, seizure disorder, alcohol use disorder, tobacco use disorder, fibromyalgia and other medical problems listed below who was admitted by the psychiatric service for suicidal ideation and increased alcohol use with plans for inpatient treatment. We are consulted due to uncontrolled hypertension in the setting of alcohol withdrawal. -BP was 173/99 initially. Rechecked BP 158/96. Likely elevated in setting of alcohol withdrawal. Continue AWSS protocol and Ativan as needed. Taking Lyrica as well -Will add amlodipine 5 mg p.o. -recheck BP (2) Alcohol use disorder: Endorses drinking 8-12 beers daily -Continue AWSS protocol and Ativan as needed. Taking Lyrica as well (3) Palpitations: Intermittent. Ordered EKG while having sensation - NSR, no acute ischemic changes (4) Seizure disorder: Last seizure 2 to 3 years ago, per patient. Continue Lamictal (5) Depression: (6) Post-traumatic stress disorder, unspecified: Continue SNRI, prazosin (7) Fibromyalgia: Continue Lyrica (8) Tobacco use disorder: Offered patch but is chewing nicotine gum PCP: [facility] Dispo: Per primary service Patient seen in collaboration with Dr. Jaime. Please see addendum. Thank you for this consultation. We will follow the patient with you during their hospital stay. You can reach a member of the [facility] Hospitalist Team 25/09 via pager @ [phone]. Supervising Physician Co-Signing Physician Notes Patient was seen and examined by me, care coordinated with Aliyah Black PA-C. Please see her note above for further details. Pt is 39 y/o male with hx of depression, PTSD, seizure disorder, alcohol use disorder, tobacco use disorder, fibromyalgia and other medical problems who was admitted by the psychiatric service for suicidal ideation and increased alcohol use with plans for inpatient treatment. Medicine service was consulted for hypertension in the setting of alcohol withdrawal. Patient already has history of hypertension, on ACEinh and HCTZ. Reported some chest discomfort, however also says that it feels better now when he is not smoking. Reports smoking cigars at home and having some chest discomfort for past 2 weeks. EKG was obtained during our evaluation, and shows normal sinus rhythm, without any ischemic changes. Patient is currently sitting up in bed, in no acute distress. He is alert and oriented and answering questions appropriately. Lung sounds are clear to auscultation bilaterally without any wheezing rhonchi or crackles. Heart sounds regular, no murmur appreciated. Abdomen is soft, nontender nondistended, positive bowel sounds. Patient is able to move upper and lower extremities without difficulty. Skin is warm dry, well-perfused. I had a long discussion/counseling about smoking cessation, patient in agreement that he feels better when he is not smoking. Recommended to call [facility] [place] smoking cessation line, once discharged. Also started amlodipine, and recommend to check blood pressure regularly. Once he follows with his PCP, he should have a log of his blood pressures therefore medication can be further adjusted and possibly discontinued if no longer needed. It is unclear at this time if blood pressure elevation is due to alcohol withdrawal or if patient's blood pressure is consistently in high numbers. We will continue to follow with you while patient is admitted. Alex Jaime MD History of Present Illness Reason for Consultation: Hypertension Attending Physician: Tia Peralta MD History of Present Illness This is a 39-year-old male with PMH of depression, PTSD, seizure disorder, alcohol use disorder, tobacco use disorder, fibromyalgia and other medical problems listed below who was admitted by the psychiatric service for suicidal ideation and increased alcohol use with plans for inpatient treatment. We are consulted due to uncontrolled hypertension in the setting of alcohol withdrawal. Patient has history of hypertension and at home is on lisinopril- hydrochlorothiazide 20-12.5 mg daily. Also endorses increased smoking recently smoking multiple cigars daily due to stress. Endorses some intermittnet palpitations that have gotten better since he hasn't smoked today. Denies chest pain. Drinks 8- 12 12-oz beers daily with most recent drink at 2100 last evening. Denies having withdrawal symptoms when he stops drinking. Does note mild tremors. Denies any hallucinations, headache, nausea, confusion or seizures. Denies any fever, chills, lightheadedness, visual changes, cough, shortness of breath, nausea, vomiting, abdominal pain, dysuria, diarrhea or constipation. Does take Lamictal for history of seizures but denies having any seizure for the last few years. Allergies Allergy/AdvReac Type Severity Reaction Status Date / Time No Known Allergies Allergy Verified 11/26/19 10:13 Home Medications Home Medications Medication Instructions Recorded Confirmed Type cholecalciferol (vitamin D3) 2,000 unit PO QAM 05/20/18 12/01/19 History [Vitamin D3] duloxetine 120 mg PO QAM 05/20/18 12/01/19 History lamotrigine [Lamictal] 100 mg PO BID 05/20/18 12/01/19 History lisinopril-hydrochlorothiazide 1 tab PO QAM 05/20/18 12/01/19 History magnesium 400 mg PO BID 05/20/18 12/01/19 History prazosin 5 mg PO HS 05/20/18 12/01/19 History pregabalin 300 mg PO BID 05/20/18 12/01/19 History trazodone 50 mg PO HS 05/20/18 12/01/19 History calcium carbonate 500 mg calcium 500 mg PO QAM 07/07/19 12/01/19 History (1,250 mg) tablet Patient History Medical History Alcohol use disorder Chronic back pain Degenerative disc disease Depression Hypertension Memory deficit SHORT TERM ISSUES Recurrent umbilical hernia Seizure ABSENCE SZS- QUESTIONABLE SZ 04/20/19- FOLLOWS WITH NEURO- NEURO AWARE AND ACTUALLY CLEARED PATIENT FOR LUMBAR SURGERY 05/07/19 (PT HAD BEEN WELL CONTROLLED X TWO YEARS- SZ QUESTIONABLE DUE TO ALCOHOL INTOXICATION) Seizure disorder TBI (traumatic brain injury) OCCURED IN . Tobacco use disorder Surgical History (Updated 12/02/19 @ 15:30 by Aliyah Black PA-C) H/O umbilical hernia repair (11/13/19) Diagnostic Laparoscopy, Enterolysis, Open repair of Recurrent Umbilical Hernia Repair with mesh(Right) - DO randolph Nguyễn Laparoscopic Appendectomy Dr. Holliday 11/13/19 History of appendectomy Diagnostic Laparoscopy, Enterolysis, Open repair of Recurrent Umbilical Hernia Repair with mesh(Right) - DO randolph Nguyễn Laparoscopic Appendectomy History of bilateral carpal tunnel release History of discectomy LUMBAR History of surgery tendon release bilateral legs Hx of foot surgery X2 Hx of hernia repair X3 Status post lumbar surgery Family History Grandfather (Paternal) Family history of diabetes mellitus Social History Smoking Status: Current every day smoker Tobacco Type: Cigars Cigarettes Per Day: 2-3; Second Hand Exposure: Yes; Hx Alcohol Use: Yes Alcohol type: beer Alcohol Intake Frequency Comment: 6-12 beers per day Hx Substance Use: Yes Last Used Substance Other:: [facility] Substance Use Type Other:: [facility] Preferred Language: Portuguese Communication Ability: Effective Cake Icer Required: No Beliefs That Will Affect Care: None Current Living Situation: Spouse and Family Feels Safe at Home: Yes Assistive Devices: None Review of Systems Review of Systems: At least ten systems reviewed and negative except as noted in the HPI. Physical Exam Physical Exam: General Appearance: WD/WN, vitals as above, NAD, sitting up in bed, pleasant, conversing easily Head: normocephalic, atraumatic Eyes: normal inspection, PERRL, conjunctivae normal, anicteric sclerae ENT: external ear and nose normal, oropharynx normal Neck: normal visual inspection, trachea midline, no thyromegaly Respiratory: normal respiratory effort, lungs clear to auscultation, no wheeze, rales, rhonchi. No accessory muscle use Cardiovascular: regular rate, rhythm, no murmur, normal peripheral pulses, no BLE edema. Vessels: no JVD Chest: normal inspection of chest Abdomen/GI: normal bowel sounds, soft, nontender, no hepatosplenomegaly Extremities/Musculoskeletal: no cyanosis or clubbing, extremities motor strength 5/5 Neurologic: PERRL, EOMI, accommodation nl, no face palsy, no dysarthria, CN's II-XI intact bilaterally and moves all extremities Psychiatric: A+Ox3, euthymic affect Skin: no rashes, normal color, warm/dry Results & Data Results & Data ([facility]) Vital Signs (Past 12 Hours) Vital Signs Temp Pulse Pulse Pulse Resp BP BP 12/02/19 13:10 36.8 C 72 18 12/02/19 10:45 36.7 C 62 18 12/02/19 09:00 36.6 C 68 18 167/107 H 12/02/19 06:40 64 165/100 H 12/02/19 06:39 36.9 C 61 16 149/87 H 12/02/19 06:02 37 C 70 18 153/104 H 12/02/19 05:24 70 18 153/104 H BP Pulse Ox 12/02/19 13:10 173/99 H 12/02/19 10:45 168/105 H 96 12/02/19 09:00 12/02/19 06:40 12/02/19 06:39 12/02/19 06:02 96 12/02/19 05:24 96
[2019-12-02] MEDS: PRAZOSIN HCL 1 MG CAP PO SCH (20:48)
--- NOTE | 2019-12-03 06:13 | Electrocardiogram Report ---
Test Reason : Blood Pressure : / mmHG Vent. Rate : 073 BPM Atrial Rate : 073 BPM P-R Int : 162 ms QRS Dur : 096 ms QT Int : 394 ms P-R-T Axes : 064 065 060 degrees QTc Int : 434 ms Normal sinus rhythm Normal ECG When compared with ECG of 24-OCT-2019 12:02, No significant change was found Confirmed by Jovanny Avila ([id number]) on 12/03/2019 6:13:03 AM Referred By: REFERRED SELF Confirmed By:Jovanny Avila
[2019-12-03 07:24] LABS: Hematocrit (blood only) 52.6 % (42-52); Mean Corpuscular Hemoglobin 29.2 pg (25-34); Mean Corpuscular Hgb Conc 34.2 g/dL (32-36); Mean Corpuscular Volume 85.3 fL (80-100); Mean Platelet Volume 11.3 fL (7.4-10.4); Platelet Count 168 K/uL (130-400); RDW Coefficient of Variation 16.5 % (11.5-14.5); Red Blood Count 6.17 M/uL (4.7-6.1); White Blood Count 4.84 K/uL (4.8-10.8)
[2019-12-03 07:57] LABS: Calcium 9.8 mg/dl (8.5-10.1); Creatinine Clr Calc Pharmacy 102.1 ml/min; Est GFR (African American) 88.6; Est GFR (Non-African American) 76.5; Potassium 3.6 mmol/L (3.5-5.1)
[2019-12-03] MEDS: PREGABALIN 150 MG CAP PO SCH ×2 (08:33→21:05)
[2019-12-03] MEDS: DULOXETINE HCL 60 MG CAP PO SCH (08:33)
[2019-12-03] MEDS: lamoTRIgine 100 MG TAB PO SCH ×2 (08:33→21:04)
[2019-12-03] MEDS: CALCIUM CARBONATE 500 MG CHEWABLE TAB PO SCH (08:34)
[2019-12-03] MEDS: AMLODIPINE BESYLATE 5 MG TAB PO SCH (08:34)
[2019-12-03] MEDS: LISINOPRIL/HCTZ 20/12.5MG 1 TAB TAB PO SCH (08:34)
[2019-12-03] MEDS: CHOLECALCIFEROL 1,000 UNITS 25 MCG TAB PO SCH (08:35)
[2019-12-03] MEDS: NICOTINE 7 MG/24 HR TDSY TD SCH (08:36)
[2019-12-03] MEDS: NICOTINE POLACRILEX 2 MG GUM MT PRN ×4 (09:31→21:11)
--- NOTE | 2019-12-03 10:12 | Psychiatric Progress Note ---
Date of Service December 03, 2019 Impression / Recommendations Impression 89-year-old male with a history of depression, PTSD, alcohol dependence, and TBI with cognitive impairment who presented with worsening mood and suicidal ideation in the context of psychosocial stressors and increasing alcohol use. He was admitted voluntarily, continued on home medications including duloxetine and prazosin, and is willing for inpatient rehab. Inpatient treatment is medically necessary at this time due to the severity of symptoms and risk for suicide if discharged prematurely. Pt is presently denying SI and reporting a positive outlook now that he has requested help. He, personally, admits to concern for rapid decompensation if he is discharged home to his previous stressors, but is able to contract for safety in a structured setting and is not perceived to be an acute safety risk in the rehab setting at this time. Will begin rehab referrals and coordination of discharge planning. (1) Depression: 12/01 -continue duloxetine 120 mg daily, and [facility] -Attending participating groups and therapy, work on healthy coping skills and discharge safety plan. 12/02 - Continue medication regimen as above - patient is able to identify numerous stressors he feels have been contributing to both his depression and continued alcohol use. He admits today that he has a more positive outlook, hopeful about his future - Pt continues to deny active SI, reporting improvement in mood - but is admitting to concern for rapid decompensation if he is discharged home to the same stressors. Pt is not perceived to be at acute risk of harm to self within a structured setting, but concern for alcohol relapse and recurrence of SI is why direct transfer from our unit to an inpatient D&A rehabilitation facility is being recommended. (2) Alcohol abuse: 12/01 -continue AWSS protocol with Ativan as needed for withdrawal symptoms. -Recovery protocol. -Patient willing for inpatient rehab, [facility]. -Recommend avoiding prescription of controlled substances given the high risk of abuse/misuse/negative outcomes. 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 -Brief intervention was offered and accepted Intervention was greater than 5 min in length. Brief interventions include: 1. Assess Readiness to Quit, 2. Advise: Help Patient to Reduce or Abstain from Alcohol, 3. Agree: Set Specific, Feasible Goa ls, 4. Assist: Anticipate barriers, Problem-Solving Solutions. Social work to 5. Arrange: Referrals to appropriate treatment. Summary of intervention: The patient is in contemplation stage with regards to transtheoretical model of change. The patient is advised to decrease alcohol consumption due to depressant effects and risk of interactions with prescription medications. The patient agreed to inpatient rehab and will be provided with recovery materials to continue to education self on how to cope with their condition without drinking. 12/02 - Pt is agreeable with recommendation for referral to an inpatient D&A rehab facility - Reports he preference is for a [place] affiliated rehab facility in [place], [place] - patient states he has contact information for individuals that are able to help with this process. (3) Post-traumatic stress disorder, unspecified: 12/01 -continue SNRI and prazosin, resume outpatient therapy once inpatient rehab is completed. Could benefit from more intensive outpatient therapy. (4) Insomnia, unspecified: 12/01 -continue home dose of trazodone, provide education regarding sleep hygiene and importance of addressing his alcoholism in order to improve sleep. (5) Hypertension: 12/01 -continue home dose of lisinopril/hydrochlorothiazide, monitor blood pressure and consider need for hospitalist consult if it remains elevated. Denies cardiovascular symptoms currently. Elevation likely impacted by anxiety of admission and alcohol withdrawal. 12/02 -- Hospitalist consultation reviewed, appreciate recommendations - It is reportedly felt that patient's elevated BP is related to alcohol withdrawal. Recommendation to continue AWSS protocol with Ativan - BP much improved today - 131/68 (6) Tobacco use: 12/01 -smoking cessation education provided, offer patch and gum as needed for cravings. Refer to rehab for ongoing addiction treatment. (7) Fibromyalgia: 12/01 -continue home dose of pregabalin. (8) Seizure: 12/01 -continue home dose of lamotrigine. Risk Factors Assessment Male: Yes : Yes Do You Have Access To A Gun?: No Health Problems: Yes Mental Health Diagnoses: Yes Substance Use Disorders: Yes Previous Attempt: No Family History of Suicide: No Previous Psychiatric Hospitalization: No Hopelessness: Yes Smoker: Yes Protective Factors Assessment : Yes Responsible for Young Children: Yes Employed: No Stable Relationships: Yes Supportive Family: Yes Interval History Identifying Information NALLELY SELLERS is a 39-year-old M who currently lives in [place] with his , has a history of depression, alcohol abuse, and PTSD, and was admitted on 12/02/19 04:52 on a 201 voluntary commitment for depression and SI. Chief Complaint "Did someone call julia velasquez about the rehab. I'd really like to go." Review of Systems Notes Constitutional: admits to interrupted sleep last evening Cardiovascular: denied Respiratory: denied Gastrointestinal: denied Neurological: denied Psychiatric: denies symptoms other than stated above Total of at least 10 systems reviewed, pertinent positives as above and in HPI. Sleep Information Total Hours of Sleep: 6.5 Sleep Comments: pt admitted late in the shift @0531. pt currently laying in bed awake. pt on q-15 minute checks Meal Information Percent Meal Consumed - Lunch: 100 Percent Meal Consumed - Dinner: 100 Subjective Subjective Patient was seen & assessed and interval progress reviewed with treatment team. Staff report the patient has been doing well, and is actively participating in group programming. Primary concern for admission was intermittent SI over the past 6 months, with concern for numerous significant stressors related to his home-life, psychiatric history, and ongoing alcohol abuse. Pt denied acute SI upon arrival to the unit, and continues to deny suicidality. Pt was seen today to assess progress since admission. He inquires "Did someone call julia velasquez about the rehab. I'd really like to go." Pt shares that after further discussion with his and social work, he would now prefer to be referred to rehab facilities within the [place] system. He was given a recommendation to pursue a specific facility in [place], [place] initially and has contact information for an individual that will assist with this process. 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 As his children have grown, he admits he has prioritized their needs above his own. While he is continuing to process these feelings of uselessness and "guilt" he admits that he is "more hopeful" at this time, as "I will have more time to do more for me." Pt is able to verbalize numerous activities that had previous brought him macey, and admits he desires to again explore these pastimes. He is consistently reporting willingness for rehab, admitting his alcohol use has been problematic over the past few months. He is able to verbalize numerous significant stressors, but states "despite the shit storm, I have a positive outlook for what the future will be." Pt states he feels he benefitted from a group on "assertiveness" last evening, and states he is hoping to be able to better advocate for is needs. This includes the possibility of from his and moving in with his brother, who has been a constant support. Pt states he has already been discussing this with his brother. Pt denies acute safety concerns, and is future oriented during conversation. He denies other needs or concerns today. Physical Exam Psychiatric Orientation: alert, oriented x 3 and cooperative (pleasant) Apperance: appropriately dressed (though clothing is stained, worn; casually dressed in t-shirt and jeans), appropriately groomed (grooming appearing adequate, though somewhat malodorous) and appeared stated age Eye Contact: good eye contact Motor Behavior: steady gait and station and no abnormal motor movements Speech: normal rate/rhythm/volume of speech Affect: + anxious affect (mildly so) Mood: + anxious mood (reporting he is still dealing with a lot of stress) Thought Process: goal directed thought process, clear/coherent thought process and thought association intact Thought Content: reality based without delusions and + worthlessness (admits to feeling "useless", but feeling more "hopeful" about future); no hopelessness Suicidal Thoughts: denies suicidal thoughts, denies suicidal plan and denies suicidal intent future oriented Homicidal Thoughts: denies homicidal thoughts Hallucinations: no auditory hallucinations and no visual hallucinations Cognition: attention grossly intact and language grossly intact Estimated Intelligence: consistent with education level (though evidence of cognitive deficits related to TBI) Insight: + fair insight Judgement: + fair judgement Vital Signs (Past 24 Hours) Last Vital Signs Temp 36.5 C 12/03/19 06:39 Pulse 81 12/03/19 06:39 Resp 16 12/03/19 06:39 BP 131/68 12/03/19 06:39 Pulse Ox 96 12/02/19 10:45 Results & Data ([facility]) Laboratory Results Laboratory Results - last 24 hr 12/03/19 12/03/19 07:08 07:08 WBC 4.84 RBC 6.17 H Hgb 18.0 Hct 52.6 H MCV 85.3 MCH 29.2 MCHC 34.2 RDW Std Deviation 51.0 H RDW Coeff of Moi 16.5 H Plt Count 168 MPV 11.3 H Sodium 138 Potassium 3.6 Chloride 103 Carbon Dioxide 27 Anion Gap 8.0 BUN 14 Creatinine 1.19 Est Cr Clr Drug Dosing 102.1 Est GFR ( Amer) 88.6 Est GFR (Non-Af Amer) 76.5 BUN/Creatinine Ratio 12.0 Glucose 133 H Calcium 9.8 Current Inpatient Medications Current Inpatient Medications: Current Inpatient Medications Acetaminophen (Acetaminophen 325 Mg Tab) 650 mg PO Q4H PRN PRN Reason: Headache or Minor Fever Stop: 01/01/20 04:51 Al Hydrox/Mg Hydrox/Simethicone (Aluminum/Magnesium Susp 30 Ml Udc) 30 ml PO Q4H PRN PRN Reason: GI Upset Stop: 01/01/20 04:51 Amlodipine Besylate (Amlodipine Besylate 5 Mg Tab) [facility] Stop: 01/02/20 08:59 Last Admin: 12/03/19 08:34 Dose: 5 mg Documented by: Bismuth Subsalicylate (Bismuth Subsalicylate Liqd 236 Ml) 15 ml PO PRN PRN PRN Reason: Loose Stool Stop: 01/01/20 04:51 Calcium Carbonate (Calcium Carbonate 500 Mg Chewable Tab) 500 [facility] Stop: 01/01/20 08:59 Last Admin: 12/03/19 08:34 Dose: 500 mg Documented by: Duloxetine HCl (Duloxetine Hcl 60 Mg Cap) 120 mg PO [facility] Stop: 01/01/20 08:59 Last Admin: 12/03/19 08:33 Dose: 120 mg Documented by: Lisinopril/HCTZ (Lisinopril/Hctz 20/12.5mg 1 Tab Tab) 1 [facility] Stop: 01/01/20 08:59 Last Admin: 12/03/19 08:34 Dose: 1 tab Documented by: Hydroxyzine HCl (Hydroxyzine Hcl 25 Mg Tab) 25 mg PO Q4H PRN PRN Reason: Anxiety Stop: 01/01/20 04:51 Lamotrigine (Lamotrigine 100 Mg Tab) 100 mg PO BID [facility] Stop: 01/01/20 08:59 Last Admin: 12/03/19 08:33 Dose: 100 mg Documented by: Magnesium Hydroxide (Magnesium Hydroxide Susp 30 Ml Udc) 30 ml PO DAILY PRN PRN Reason: Constipation Stop: 01/01/20 04:51 Miscellaneous (Remove Nicoderm Patch) 1 ea N/A DAILY@0859 [facility] Stop: 01/01/20 08:58 Last Admin: 12/03/19 08:36 Dose: Not Given Documented by: Nicotine (Nicotine 7 Mg/24 Hr Tdsy) 7 mg TD QAM [facility] Stop: 01/01/20 08:59 Last Admin: 12/03/19 08:36 Dose: Not Given Documented by: Nicotine Polacrilex (Nicotine Polacrilex 2 Mg Gum) 1 piece MT Q1H PRN PRN Reason: nicotine cravings Stop: 01/01/20 09:44 Last Admin: 12/03/19 09:31 Dose: 1 piece Documented by: Prazosin HCl (Prazosin Hcl 1 Mg Cap) 5 mg PO HS [facility] Stop: 01/01/20 21:59 Last Admin: 12/02/19 20:48 Dose: 5 mg Documented by: Pregabalin (Pregabalin 150 Mg Cap) 300 mg PO BID [facility] Stop: 01/01/20 08:59 Last Admin: 12/03/19 08:33 Dose: 300 mg Documented by: Sodium Chloride (Sodium Chloride 0.65% Na Soln 45 Ml ([place])) 1 - 2 sprays NA PRN PRN PRN Reason: Nasal Dryness/Congestion Stop: 01/01/20 04:51 Vitamin D (Cholecalciferol 1,000 Units 25 Mcg Tab) 2,000 units PO QAM [facility] Stop: 01/01/20 08:59 Last Admin: 12/03/19 08:35 Dose: 2,000 units Documented by: Mental Health & Subst Abuse Tx Therapist Name of Therapist: Jose Manuel Granados currently talks via phone Post Discharge Appointments Primary Care Physician Name Of Family Doctor: Brigid HERNANDEZ PA-C
[2019-12-03] MEDS: IBUPROFEN 600 MG TAB PO PRN (19:15)
[2019-12-03] MEDS: PRAZOSIN HCL 1 MG CAP PO SCH (21:05)
--- NOTE | 2019-12-03 22:45 | Hospitalist Progress Note ---
Date of Service December 03, 2019 Assessment & Plan (1) Hypertension: Blood pressures improved. BP this morning = 131/68. Continue lisinopril/HCTZ, amlodipine, prazosin. (2) Alcohol use disorder: No signs / symptoms of alcohol withdrawal. Continue to monitor. (3) DVT prophylaxis: Low risk for VTE per IMPROVE risk assessment model. No need for chemical or mechanical VTE prophylaxis. Ambulate. (4) Encounter for consultation: Thank you for this consultation. We will follow the patient with you during their hospital stay. My cell # is [phone]. You can reach a member of the [facility] Medicine Team 25/09 via pager @ [phone]. Admission and Anticipated Discharge Date Admission Date: December 02, 2019 Subjective Recheck for hypertension and other problems. Patient seen in their room around 1130. Doing well. Blood pressures improved. About 2 days since last alcohol consumption. No hallucinations, tremors, sweats, nausea, vomiting. Review of Systems: Constitutional- no fever. Cardiac- no chest pain. Pulmonary- no cough or SOB. GI- no nausea, vomiting, diarrhea, melena, hematochezia. - no urinary symptoms. Otherwise, as noted above. Physical Exam Constitutional: no acute distress Respiratory: no respiratory distress Auscultation: lungs clear to auscultation bilaterally Cardiovascular: Rate/Rhythm: regular rate and regular rhythm Vessels: no JVD Extremities: no calf tenderness and no edema Gastrointestinal (Abdomen): normal bowel sounds, soft, nontender, no hepatosplenomegaly healing incision from recent laparoscopic surgery Skin: no rashes, warm and dry Psychiatric: Orientation: alert and oriented x 3 Results & Data Results & Data ([facility]) Vital Signs (Past 12 Hours) Vital Signs Temp 12/03/19 19:48 36.9 C 12/03/19 07:08 12/03/19 07:08
[2019-12-04] MEDS: DULOXETINE HCL 60 MG CAP PO SCH (08:52)
[2019-12-04] MEDS: PREGABALIN 150 MG CAP PO SCH ×2 (08:53→18:52)
[2019-12-04] MEDS: lamoTRIgine 100 MG TAB PO SCH ×2 (08:53→18:50)
[2019-12-04] MEDS: CALCIUM CARBONATE 500 MG CHEWABLE TAB PO SCH (08:54)
[2019-12-04] MEDS: CHOLECALCIFEROL 1,000 UNITS 25 MCG TAB PO SCH (08:54)
[2019-12-04] MEDS: AMLODIPINE BESYLATE 5 MG TAB PO SCH (08:54)
[2019-12-04] MEDS: LISINOPRIL/HCTZ 20/12.5MG 1 TAB TAB PO SCH (08:54)
[2019-12-04] MEDS: NICOTINE POLACRILEX 2 MG GUM MT PRN ×5 (08:57→20:51)
[2019-12-04] MEDS: NICOTINE 7 MG/24 HR TDSY TD SCH (08:58)
[2019-12-04 10:00] LABS: Marijuana Quant, GCMS Urine 75 ng/mL (<5)
--- NOTE | 2019-12-04 10:47 | Psychiatric Progress Note ---
Date of Service December 04, 2019 Impression / Recommendations Impression 89-year-old male with a history of depression, PTSD, alcohol dependence, and TBI with cognitive impairment who presented with worsening mood and suicidal ideation in the context of psychosocial stressors and increasing alcohol use. He was admitted voluntarily, continued on home medications including duloxetine and prazosin, and is willing for inpatient rehab. Inpatient treatment is medically necessary at this time due to the severity of symptoms and risk for suicide if discharged prematurely. Pt is presently denying SI and reporting a positive outlook now that he has requested help. He, personally, admits to concern for rapid decompensation if he is discharged home to his previous stressors (mentioning concern for both SI and HI if he were to return home), but is able to contract for safety in a structured setting and is not perceived to be an acute safety risk in the rehab setting at this time. There is ongoing concern that patient is likely to repeat the same pattern of substance use l eading to acute safety concerns if he is discharged home without a reasonable plan for appropriate D&A treatment. Will begin rehab referrals and coordination of discharge planning. (1) Depression: 12/01 -continue duloxetine 120 mg daily, and [facility] -Attending participating groups and therapy, work on healthy coping skills and discharge safety plan. 12/02 - Continue medication regimen as above - patient is able to identify numerous stressors he feels have been contributing to both his depression and continued alcohol use. He admits today that he has a more positive outlook, hopeful about his future - Pt continues to deny active SI, reporting improvement in mood - but is admitting to concern for rapid decompensation if he is discharged home to the same stressors. Pt is not perceived to be at acute risk of harm to self within a structured setting, but concern for alcohol relapse and recurrence of SI is why direct transfer from our unit to an inpatient D&A rehabilitation facility is being recommended. 12/03 - Continue current medication regimen - Pt admits to anxiety and feeling overwhelmed with discharge planning. He remains willing for discharge to rehab and states he feels ready to make this transition; however, he continues to state he does not feel safe returning home (2) Alcohol abuse: 12/01 -continue AWSS protocol with Ativan as needed for withdrawal symptoms. -Recovery protocol. -Patient willing for inpatient rehab, [facility] -Recommend avoiding prescription of controlled substances given the high risk of abuse/misuse/negative outcomes. 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 -Brief intervention was offered and accepted Intervention was greater than 5 min in length. Brief interventions include: 1. Assess Readiness to Quit, 2. Advise: Help Patient to Reduce or Abstain from Alcohol, 3. Agree: Set Specific, Feasible Goals, 4. Assist: Anticipate barriers, Problem-Solving Solutions. Social work to 5. Arrange: Referrals to appropriate treatment. Summary of intervention: The patient is in contemplation stage with regards to transtheoretical model of change. The patient is advised to decrease alcohol consumption due to depressant effects and risk of interactions with prescription medications. The patient agreed to inpatient rehab and will be provided with recovery materials to continue to education self on how to cope with their condition without drinking. 12/02 - Pt is agreeable with recommendation for referral to an inpatient D&A rehab facility - [place] - patient states he has contact information for individuals that are able to help with this process. 12/03 - Continue attempts to arrange rehab referral - Pt continues to feel as though he would be unsafe to return home in between his psychiatric hospitalization and rehab placement due to concern for recurrence of SI and now possibly HI toward (3) Post-traumatic stress disorder, unspecified: 12/01 -continue SNRI and prazosin, resume outpatient therapy once inpatient rehab is completed. Could benefit from more intensive outpatient therapy. (4) Insomnia, unspecified: 12/01 -continue home dose of trazodone, provide education regarding sleep hygiene and importance of addressing his alcoholism in order to improve sleep. (5) Hypertension: 12/01 -continue home dose of lisinopril/hydrochlorothiazide, monitor blood pressure and consider need for hospitalist consult if it remains elevated. Denies cardiovascular symptoms currently. Elevation likely impacted by anxiety of admission and alcohol withdrawal. 12/02 -- Hospitalist consultation reviewed, appreciate recommendations - It is reportedly felt that patient's elevated BP is related to alcohol withdrawal. Recommendation to continue AWSS protocol with Ativan - BP much improved today - 131/68 (6) Tobacco use: 12/01 -smoking cessation education provided, offer patch and gum as needed for cravings. Refer to rehab for ongoing addiction treatment. (7) Fibromyalgia: 12/01 -continue home dose of pregabalin. (8) Seizure: 12/01 -continue home dose of lamotrigine. Risk Factors Assessment Male: Yes : Yes Do You Have Access To A Gun?: No Health Problems: Yes Mental Health Diagnoses: Yes Substance Use Disorders: Yes Previous Attempt: No Family History of Suicide: No Previous Psychiatric Hospitalization: No Hopelessness: Yes Smoker: Yes Protective Factors Assessment : Yes Responsible for Young Children: Yes Employed: No Stable Relationships: Yes Supportive Family: Yes Interval History Identifying Information NALLELY SELLERS is a 39-year-old M who currently lives in [place] with his , has a history of depression, alcohol abuse, and PTSD, and was admitted on 12/02/19 04:52 on a 201 voluntary commitment for depression and SI. Chief Complaint "Um, I'm feeling overwhelmed but ready." Review of Systems Notes Constitutional: reports poor sleep last evening Cardiovascular: denied Respiratory: denied Gastrointestinal: denied Neurological: denied Psychiatric: denies symptoms other than stated above Total of at least 10 systems reviewed, pertinent positives as above and in HPI. Sleep Information Total Hours of Sleep: 5.5 Sleep Comments: received Vistaril 25mg for anxiety at approx 0050 Meal Information Percent Meal Consumed - Breakfast: 100 Percent Meal Consumed - Lunch: 100 Percent Meal Consumed - Dinner: 100 Subjective Subjective Patient was seen & assessed and interval progress reviewed with nursing and social work. Staff report the patient has been attending programming. He rated his mood an 8/10 and "pleased" last evening. Pt was seen today to assess progress since admission. Pt states he continues to feel a bit overwhelmed, but is looking forward to continuing the rehab referral process. Pt reports feeling ready for transfer to rehab and feels he could contract for safety in that setting. We discussed that additional information regarding the [place] was being obtained, but that there was concern that patient may not be able to be a direct transfer. Pt became suddenly tearful and reported shortness of breath after hearing this. Pt states "I'll tell you what, I'd really like to change my mood number if that's the case" [referring to mood rating scale during community meeting]. Pt states that he is very concerned suicidal thoughts will "immediately come back" if he is expected to return home. He remains convinced that nothing about his situation has changed, and feels rehab is necessary to allow him to work through some of these concerns. Pt was offered re[facility] referrals [facility] of [facility], which he is declining at this time, as he feels he will be able to better identify with other veterans. Pt denies SI in this setting, but does appear very worried about the idea of returning home. Pt denied other needs or concerns and was informed we would continue to update him with details as they became available. Of note, staff informed this provider that the patient had verbalized ongoing concerns about interactions with his . He did state that if he were to go home now he would be suicidal and homicidal and says more homicidal. It was reported that patient did not verbalize who the homicidality was directed toward, nor did he give any specific ideas or plan. This will need to be monitored, and of course duty to warn should be considered if homicidality does not resolve in a reasonable period of time. Physical Exam Psychiatric Orientation: alert, oriented x 3 and cooperative Apperance: appropriately dressed, appropriately groomed and appeared stated age Eye Contact: good eye contact Motor Behavior: steady gait and station and no abnormal motor movements Though does become tremulous and tearful when discussing potential of returning home prior to rehab Speech: normal rate/rhythm/volume of speech Affect: + depressed affect and + tearful affect Mood: + depressed mood Thought Process: goal directed thought process and clear/coherent thought process Thought Content: reality based without delusions; no hopelessness and no worthlessness Suicidal Thoughts: denies suicidal thoughts denies presently, but concerned about these thoughts developing if he should be expected to return home prior to rehab placement Homicidal Thoughts: denies homicidal thoughts denies presently, but concerned about these thoughts developing if he should be expected to return home prior to rehab placement Hallucinations: no auditory hallucinations and no visual hallucinations Cognition: recent memory grossly intact, attention grossly intact and language grossly intact Insight: + limited insight Judgement: + limited judgement Vital Signs (Past 24 Hours) Last Vital Signs Temp 36.4 C L 12/04/19 06:51 Pulse 63 12/04/19 06:54 Resp 16 12/04/19 06:51 BP 130/84 12/04/19 06:54 Pulse Ox 96 12/02/19 10:45 Results & Data ([facility]) Laboratory Results Laboratory Results - last 24 hr 12/01/19 22:30 U Marijuana THC Carboxy 75 H Drug Screen Comment SEE NOTE Current Inpatient Medications Current Inpatient Medications: Current Inpatient Medications Acetaminophen (Acetaminophen 325 Mg Tab) 650 mg PO Q4H PRN PRN Reason: Headache or Minor Fever Stop: 01/01/20 04:51 Al Hydrox/Mg Hydrox/Simethicone (Aluminum/Magnesium Susp 30 Ml Udc) 30 ml PO Q4H PRN PRN Reason: GI Upset Stop: 01/01/20 04:51 Amlodipine Besylate (Amlodipine Besylate 5 Mg Tab) 5 mg PO QAM [facility] Stop: 01/02/20 08:59 Last Admin: 12/04/19 08:54 Dose: 5 mg Documented by: Bismuth Subsalicylate (Bismuth Subsalicylate Liqd 236 Ml) 15 ml PO PRN PRN PRN Reason: Loose Stool Stop: 01/01/20 04:51 Calcium Carbonate (Calcium Carbonate 500 Mg Chewable Tab) [facility] Stop: 01/01/20 08:59 Last Admin: 12/04/19 08:54 Dose: 500 mg Documented by: Duloxetine HCl (Duloxetine Hcl 60 Mg Cap) 120 [facility] Stop: 01/01/20 08:59 Last Admin: 12/04/19 08:52 Dose: 120 mg Documented by: Lisinopril/HCTZ (Lisinopril/Hctz 20/12.5mg 1 Tab Tab) [facility] Stop: 01/01/20 08:59 Last Admin: 12/04/19 08:54 Dose: 1 tab Documented by: Hydroxyzine HCl (Hydroxyzine Hcl 25 Mg Tab) 25 mg PO Q4H PRN PRN Reason: Anxiety Stop: 01/01/20 04:51 Last Admin: 12/04/19 00:46 Dose: 25 mg Documented by: Ibuprofen (Ibuprofen 600 Mg Tab) 600 mg PO Q6H PRN PRN Reason: Pain Stop: 01/02/20 13:49 Last Admin: 12/03/19 19:15 Dose: 600 mg Documented by: Lamotrigine (Lamotrigine 100 Mg Tab) 100 mg PO BID [facility] Stop: 01/01/20 08:59 Last Admin: 12/04/19 08:53 Dose: 100 mg Documented by: Magnesium Hydroxide (Magnesium Hydroxide Susp 30 Ml Udc) 30 ml PO DAILY PRN PRN Reason: Constipation Stop: 01/01/20 04:51 Miscellaneous (Remove Nicoderm Patch) 1 ea N/A DAILY@0859 [facility] Stop: 01/01/20 08:58 Last Admin: 12/04/19 08:57 Dose: Not Given Documented by: Nicotine (Nicotine 7 Mg/24 Hr Tdsy) 7 mg TD QAM [facility] Stop: 01/01/20 08:59 Last Admin: 12/04/19 08:58 Dose: Not Given Documented by: Nicotine Polacrilex (Nicotine Polacrilex 2 Mg Gum) 1 piece MT Q1H PRN PRN Reason: nicotine cravings Stop: 01/01/20 09:44 Last Admin: 12/04/19 08:57 Dose: 1 piece Documented by: Prazosin HCl (Prazosin Hcl 1 Mg Cap) 5 mg PO HS [facility] Stop: 01/01/20 21:59 Last Admin: 12/03/19 21:05 Dose: 5 mg Documented by: Pregabalin (Pregabalin 150 Mg Cap) 300 mg PO BID [facility] Stop: 01/01/20 08:59 Last Admin: 12/04/19 08:53 Dose: 300 mg Documented by: Sodium Chloride (Sodium Chloride 0.65% Na Soln 45 Ml ([place])) 1 - 2 sprays NA PRN PRN PRN Reason: Nasal Dryness/Congestion Stop: 01/01/20 04:51 Trazodone HCl (Trazodone Hcl 50 Mg Tab) 50 mg PO HS [facility] Stop: 01/03/20 21:59 Vitamin D (Cholecalciferol 1,000 Units 25 Mcg Tab) 2,000 units PO QAM [facility] Stop: 01/01/20 08:59 Last Admin: 12/04/19 08:54 Dose: 2,000 units Documented by: Mental Health & Subst Abuse Tx Psychiatrist Name of Psychiatrist: DAVID Blanc Psychiatrist's Psychiatric Appointment Comment: [id number], [place] [address] Therapist Name of Therapist: DAVID Granados Therapist's Therapy Appointment Comment: Telehealth Transaction Advisory Services Manager Name of Transaction Advisory Services Manager: [facility] Liv Jones Phone Number for Transaction Advisory Services Manager: [phone] ext [phone] Post Discharge Appointments Primary Care Physician Name Of Family Doctor: DAVID Tamez PA-C Primary Care Provider Appointment Comment: [phone], [place] [address] Contact Information Discharge Discharge Address: [address] [place] [address], [place] [address]
[2019-12-04] MEDS: MAGNESIUM OXIDE 400 MG TAB PO SCH ×2 (11:40→18:50)
[2019-12-04] MEDS: IBUPROFEN 600 MG TAB PO PRN (13:19)
[2019-12-04] MEDS: PRAZOSIN HCL 1 MG CAP PO SCH (18:51)
[2019-12-04] MEDS: TRAZODONE HCL 50 MG TAB PO SCH (18:55)
--- NOTE | 2019-12-04 21:32 | Hospitalist Progress Note ---
Date of Service December 04, 2019 Assessment & Plan (1) Hypertension: Blood pressures improved. BP this morning = 130/84. Continue lisinopril/HCTZ, amlodipine, prazosin. (2) Alcohol use disorder: ~ 3 days since last consumption of alcohol. No signs / symptoms of alcohol withdrawal. Continue to monitor. Add thiamine + MVI. (3) DVT prophylaxis: Low risk for VTE per IMPROVE risk assessment model. No need for chemical or mechanical VTE prophylaxis. Ambulate. (4) Encounter for consultation: Thank you for this consultation. We will follow the patient with you during their hospital stay. My cell # is [phone]. You can reach a member of the [facility] Medicine Team 25/09 via pager @ [phone]. Admission and Anticipated Discharge Date Admission Date: December 02, 2019 Subjective Recheck for hypertension and other problems. Patient seen in their room around 0950. Doing well. Blood pressures improved. About 3 days since last alcohol consumption. No hallucinations, tremors, sweats, nausea, vomiting. Review of Systems: Constitutional- no fever. Cardiac- no chest pain. Pulmonary- no cough or SOB. GI- no nausea, vomiting, diarrhea, melena, hematochezia. - no urinary symptoms. Otherwise, as noted above. Physical Exam Constitutional: no acute distress Respiratory: no respiratory distress Auscultation: lungs clear to auscultation bilaterally Cardiovascular: Rate/Rhythm: regular rate and regular rhythm Vessels: no JVD Extremities: no calf tenderness and no edema Gastrointestinal (Abdomen): normal bowel sounds, soft, nontender, no hepatosplenomegaly Skin: no rashes, warm and dry Psychiatric: Orientation: alert and oriented x 3 Results & Data Results & Data ([facility]) Vital Signs (Past 12 Hours) Vital Signs Temp 12/04/19 19:34 36.9 C
[2019-12-04] MEDS ORDERED: TRAZODONE HCL 50 MG TAB PO SCH (22:00)
[2019-12-05] MEDS: NICOTINE POLACRILEX 2 MG GUM MT PRN ×5 (07:28→21:55)
[2019-12-05] MEDS: lamoTRIgine 100 MG TAB PO SCH ×2 (08:32→18:59)
[2019-12-05] MEDS: DULOXETINE HCL 60 MG CAP PO SCH (08:32)
[2019-12-05] MEDS: LISINOPRIL/HCTZ 20/12.5MG 1 TAB TAB PO SCH (08:33)
[2019-12-05] MEDS: CALCIUM CARBONATE 500 MG CHEWABLE TAB PO SCH (08:33)
[2019-12-05] MEDS: MAGNESIUM OXIDE 400 MG TAB PO SCH ×2 (08:33→18:59)
[2019-12-05] MEDS: AMLODIPINE BESYLATE 5 MG TAB PO SCH (08:33)
[2019-12-05] MEDS: PREGABALIN 150 MG CAP PO SCH ×2 (08:33→19:00)
[2019-12-05] MEDS: THIAMINE HCL 100 MG TAB PO SCH (08:34)
[2019-12-05] MEDS: MULTIVITAMIN TAB PO SCH (08:34)
[2019-12-05] MEDS: CHOLECALCIFEROL 1,000 UNITS 25 MCG TAB PO SCH (08:34)
[2019-12-05] MEDS: NICOTINE 7 MG/24 HR TDSY TD SCH (08:35)
[2019-12-05] MEDS ORDERED: LORazepam 1 MG TAB PO STA (11:14)
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
[2019-12-05] MEDS: TRAZODONE HCL 50 MG TAB PO SCH (18:59)
[2019-12-05] MEDS: PRAZOSIN HCL 1 MG CAP PO SCH (19:00)
[2019-12-06] MEDS: NICOTINE POLACRILEX 2 MG GUM MT PRN ×7 (07:00→21:10)
[2019-12-06] MEDS: DULOXETINE HCL 60 MG CAP PO SCH (08:36)
[2019-12-06] MEDS: lamoTRIgine 100 MG TAB PO SCH ×2 (08:37→19:27)
[2019-12-06] MEDS: PREGABALIN 150 MG CAP PO SCH ×2 (08:37→19:29)
[2019-12-06] MEDS: MAGNESIUM OXIDE 400 MG TAB PO SCH ×2 (08:37→19:29)
[2019-12-06] MEDS: NICOTINE 7 MG/24 HR TDSY TD SCH (08:38)
[2019-12-06] MEDS: MULTIVITAMIN TAB PO SCH (08:38)
[2019-12-06] MEDS: AMLODIPINE BESYLATE 5 MG TAB PO SCH (08:38)
[2019-12-06] MEDS: CALCIUM CARBONATE 500 MG CHEWABLE TAB PO SCH (08:39)
[2019-12-06] MEDS: THIAMINE HCL 100 MG TAB PO SCH (08:39)
[2019-12-06] MEDS: LISINOPRIL/HCTZ 20/12.5MG 1 TAB TAB PO SCH (08:40)
[2019-12-06] MEDS: CHOLECALCIFEROL 1,000 UNITS 25 MCG TAB PO SCH (08:40)
[2019-12-06] MEDS ORDERED: LORazepam 1 MG TAB PO ONE (10:30)
--- NOTE | 2019-12-06 11:42 | Psychiatric Progress Note ---
Date of Service December 06, 2019 Impression / Recommendations Impression 89-year-old male with a history of depression, PTSD, alcohol dependence, and TBI with cognitive impairment who presented with worsening mood and suicidal ideation in the context of psychosocial stressors and increasing alcohol use. He was admitted voluntarily, continued on home medications including duloxetine and prazosin, and is willing for inpatient rehab. Inpatient treatment is medically necessary at this time due to the severity of symptoms and risk for suicide if discharged prematurely. Pt is presently denying SI and reporting a positive outlook now that he has requested help. He, personally, admits to concern for rapid decompensation if he is discharged home to his previous stressors (mentioning concern for both SI and HI if he were to return home), but is able to contract for safety in a structured setting and is not perceived to be an acute safety risk in the rehab setting at this time. There is ongoing concern that patient is likely to repeat the same pattern of substance use leading to acute safety concerns if he is discharged home without a reasonable plan for appropriate D&A treatment. Will begin rehab referrals and coordination of discharge planning. Reviewed 12/06/2019. Improving but exacerbation around psychosocial stressors. (1) Depression: 12/01 -continue duloxetine 120 mg daily, and [facility] -Attending participating groups and therapy, work on healthy coping skills and discharge safety plan. 12/02 - Continue medication regimen as above - patient is able to identify numerous stressors he feels have been contributing to both his depression and continued alcohol use. He admits today that he has a more positive outlook, hopeful about his future - Pt continues to deny active SI, reporting improvement in mood - but is admitting to concern for rapid decompensation if he is discharged home to the same stressors. Pt is not perceived to be at acute risk of harm to self within a structured setting, but concern for alcohol relapse and recurrence of SI is why direct transfer from our unit to an inpatient D&A rehabilitation facility is being recommended. 12/03 - Continue current medication regimen - Pt admits to anxiety and feeling overwhelmed with discharge planning. He remains willing for discharge to rehab and states he feels ready to make this transition; however, he continues to state he does not feel safe returning home 12/04 -Patient reports that he continues to experience panic attacks and extreme anxiety under certain situations that recapitulate or remind him of various traumatic events from his past. However, he notes that his mood, in general, has improved and he is formed several positive alliances on the unit. -The patient reports that he feels that his current medication regimen is appropriate. He does say that he would feel safe in going to residential treatment program, and he also says that he thinks that he would possibly be okay if he were to finish treatment at our unit, and then go to live with his brother near [place]. He does not feel that he would be able to tolerate the stress of returning to his family home given his 's threats and behaviors. -He talks about an event several weeks ago in which, not long after he had had some form of surgery involving an abdominal hernia, he noticed that the grass in the family's yard needed to be mowed, and so he mowed the yard. When he finished, his reportedly told him to "stop doing so much." The patient's first thought was that she was concerned about his physical health within the context of his surgery and the fact that he was engaged in a fairly strenuous activity. However, according the patient, he quickly realized that her concern had nothing to do with his health, but, instead, with how she would be perceived by their 2 children. He quoted her as saying, "how do you think it makes me look when you show me up like this?" He reports that he asked her who would do the work that he is been doing if he, himself, did not do it, and her reply was "stop making me look bad." Reviewed 12/06/2019. Will give Ativan 1 mg 30 min prior to meeting with . (2) Alcohol abuse: 12/01 -continue AWSS protocol with Ativan as needed for withdrawal symptoms. -Recovery protocol. -Patient willing for inpatient rehab, [facility] -Recommend avoiding prescription of controlled substances given the high risk of abuse/misuse/negative outcomes. 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 -Brief intervention was offered and accepted Intervention was greater than 5 min in length. Brief interventions include: 1. Assess Readiness to Quit, 2. Advise: Help Patient to Reduce or Abstain from Alcohol, 3. Agree: Set Specific, Feasible Goals, 4. Assist: Anticipate barriers, Problem-Solving Solutions. Social work to 5. Arrange: Referrals to appropriate treatment. Summary of intervention: The patient is in contemplation stage with regards to transtheoretical model of change. The patient is advised to decrease alcohol consumption due to depressant effects and risk of interactions with prescription medications. The patient agreed to inpatient rehab and will be provided with recovery materials to continue to education self on how to cope with their condition without drinking. 12/02 - Pt is agreeable with recommendation for referral to an inpatient D&A rehab facility - Reports he preference is for a [facility] affiliated rehab facility in [place], [place] - patient states he has contact information for individuals that are able to help with this process. 12/03 - Continue attempts to arrange rehab referral - Pt continues to feel as though he would be unsafe to return home in between his psychiatric hospitalization and rehab placement due to concern for recurrence of SI and now possibly HI toward 12/04 -Of some concern today, when he was evaluated by a provider who was unknown to him, he talked for close to an hour about multiple problems, but never once mentioned that he is alcoholic or that his primary goal is to enter chemical dependency residential treatment. When this was pointed out to him, he seemed to express some ambivalence about going to residential treatment, and said that he would want to make sure that it was "an excellent" program, even though he had been advised that, currently, the situation is such that he may not be able to be as selective as he would like to be. -The patient does say that he would feel safe in going to a residential treatment program, and reiterates that he is concerned that he will become suicidal if he ends up having to go back home with his . Reviewed 12/06/2019. Rehab bed search ongoing (service connected). (3) Post-traumatic stress disorder, unspecified: 12/01 -continue SNRI and prazosin, resume outpatient therapy once inpatient rehab is completed. Could benefit from more intensive outpatient therapy. 12/04 -The patient was triggered and had a panic attack when to security officers into the unit because of a problem with 1 of the patient's peers. He mistakenly identified them as "police officers," and also mistakenly assumed that they were caring firearms. He was able to calm himself with attention by several of the unit's team members. Reviewed 12/06/2019. (4) Insomnia, unspecified: 12/01 -continue home dose of trazodone, provide education regarding sleep hygiene and importance of addressing his alcoholism in order to improve sleep. Reviewed 12/06/2019. (5) Hypertension: 12/01 -continue home dose of lisinopril/hydrochlorothiazide, monitor blood pressure and consider need for hospitalist consult if it remains elevated. Denies cardiovascular symptoms currently. Elevation likely impacted by anxiety of admission and alcohol withdrawal. 12/02 -- Hospitalist consultation reviewed, appreciate recommendations - It is reportedly felt that patient's elevated BP is related to alcohol withdrawal. Recommendation to continue AWSS protocol with Ativan - BP much improved today - 131/68 Reviewed 12/06/2019. (6) Tobacco use: 12/01 -smoking cessation education provided, offer patch and gum as needed for cravings. Refer to rehab for ongoing addiction treatment. Reviewed 12/06/2019. (7) Fibromyalgia: 12/01 -continue home dose of pregabalin. Reviewed 12/06/2019. (8) Seizure: 12/01 -continue home dose of lamotrigine. Reviewed 12/06/2019. Risk Factors Assessment Male: Yes : Yes Do You Have Access To A Gun?: No Health Problems: Yes Mental Health Diagnoses: Yes Substance Use Disorders: Yes Previous Attempt: No Family History of Suicide: No Previous Psychiatric Hospitalization: No Hopelessness: Yes Smoker: Yes Protective Factors Assessment : Yes Responsible for Young Children: Yes Employed: No Stable Relationships: Yes Supportive Family: Yes Interval History Identifying Information NALLELY SELLERS is a 39-year-old M who currently lives in [place] with his , has a history of depression, alcohol abuse, and PTSD, and was admitted on 12/02/19 04:52 on a 201 voluntary commitment for depression and SI. Reviewed 12/06/2019. Chief Complaint "It has to be done, I have to tell her, I know she'll pull the kids into it". Review of Systems Sleep Information Total Hours of Sleep: 6.75 Sleep Comments: received Vistaril 25mg for anxiety at approx 0050 Meal Information Percent Meal Consumed - Breakfast: 100 Percent Meal Consumed - Lunch: 100 Percent Meal Consumed - Dinner: 85 Subjective Subjective Patient was seen & assessed and interval progress reviewed with nursing and social work. Patient wringing his hands in preparation for family meeting by phone with where he plans to tell her he wants a divorce and is not returning home. Relies on brother for support. Had prn Ativan once yesterday when security on unit unexpectedly was triggering for his PTSD. Physical Exam Psychiatric Orientation: alert, oriented x 3 and cooperative Apperance: appropriately dressed, appropriately groomed and appeared stated age Eye Contact: good eye contact Motor Behavior: steady gait and station and + tremor Speech: normal rate/rhythm/volume of speech Affect: + depressed affect, + anxious affect (mildly so) and + tearful affect Mood: + depressed mood and + anxious mood Thought Process: goal directed thought process Thought Content: reality based without delusions Suicidal Thoughts: denies suicidal thoughts, denies suicidal plan and denies suicidal intent Homicidal Thoughts: denies homicidal thoughts Hallucinations: no auditory hallucinations and no visual hallucinations Cognition: recent memory grossly intact, remote memory grossly intact and language grossly intact Estimated Intelligence: consistent with education level (though evidence of cognitive deficits related to TBI) Insight: + limited insight Judgement: + limited judgement Vital Signs (Past 24 Hours) Last Vital Signs Temp 36.4 C L 12/06/19 06:35 Pulse 76 12/06/19 06:35 Resp 20 12/06/19 06:35 BP 136/68 12/06/19 06:35 Pulse Ox 96 12/02/19 10:45 Results & Data ([facility]) Current Inpatient Medications Current Inpatient Medications: Current Inpatient Medications Acetaminophen (Acetaminophen 325 Mg Tab) 650 mg PO Q4H PRN PRN Reason: Headache or Minor Fever Stop: 01/01/20 04:51 Al Hydrox/Mg Hydrox/Simethicone (Aluminum/Magnesium Susp 30 Ml Udc) 30 ml PO Q4H PRN PRN Reason: GI Upset Stop: 01/01/20 04:51 Amlodipine Besylate (Amlodipine Besylate 5 Mg Tab) 5 mg PO QAM [place] Stop: 01/02/20 08:59 Last Admin: 12/06/19 08:38 Dose: 5 mg Documented by: Bismuth Subsalicylate (Bismuth Subsalicylate Liqd 236 Ml) 15 ml PO PRN PRN PRN Reason: Loose Stool Stop: 01/01/20 04:51 Calcium Carbonate (Calcium Carbonate 500 Mg Chewable Tab) [facility] Stop: 01/01/20 08:59 Last Admin: 12/06/19 08:39 Dose: 500 mg Documented by: Duloxetine HCl (Duloxetine Hcl 60 Mg Cap) 120 mg PO QAM [facility] Stop: 01/01/20 08:59 Last Admin: 12/06/19 08:36 Dose: 120 mg Documented by: Lisinopril/HCTZ (Lisinopril/Hctz 20/12.5mg 1 Tab Tab) 1 tab PO QAM [facility] Stop: 01/01/20 08:59 Last Admin: 12/06/19 08:40 Dose: 1 tab Documented by: Hydroxyzine HCl (Hydroxyzine Hcl 25 Mg Tab) 25 mg PO Q4H PRN PRN Reason: Anxiety Stop: 01/01/20 04:51 Last Admin: 12/06/19 06:57 Dose: 25 mg Documented by: Ibuprofen (Ibuprofen 600 Mg Tab) 600 mg PO Q6H PRN PRN Reason: Pain Stop: 01/02/20 13:49 Last Admin: 12/04/19 13:19 Dose: 600 mg Documented by: Lamotrigine (Lamotrigine 100 Mg Tab) 100 mg PO BID@0900,1900 [facility] Stop: 01/03/20 18:59 Last Admin: 12/06/19 08:37 Dose: 100 mg Documented by: Magnesium Hydroxide (Magnesium Hydroxide Susp 30 Ml Udc) 30 ml PO DAILY PRN PRN Reason: Constipation Stop: 01/01/20 04:51 Magnesium Oxide (Magnesium Oxide 400 Mg Tab) 400 mg PO BID@0900,1900 [facility] Stop: 01/03/20 10:59 Last Admin: 12/06/19 08:37 Dose: 400 mg Documented by: Miscellaneous (Remove Nicoderm Patch) 1 ea N/A DAILY@59 [facility] Stop: 01/01/20 08:58 Last Admin: 12/06/19 08:40 Dose: Not Given Documented by: Multivitamins (Multivitamin Tab) 1 tab PO QAM [facility] Stop: 01/04/20 08:59 Last Admin: 12/06/19 08:38 Dose: 1 tab Documented by: Nicotine (Nicotine 7 Mg/24 Hr Tdsy) 7 mg TD [facility] Stop: 01/01/20 08:59 Last Admin: 12/06/19 08:38 Dose: Not Given Documented by: Nicotine Polacrilex (Nicotine Polacrilex 2 Mg Gum) 1 piece MT Q1H PRN PRN Reason: nicotine cravings Stop: 01/01/20 09:44 Last Admin: 12/06/19 09:27 Dose: 1 piece Documented by: Prazosin HCl (Prazosin Hcl 1 Mg Cap) 5 mg PO 1900 [facility] Stop: 01/03/20 18:59 Last Admin: 12/05/19 19:00 Dose: 5 mg Documented by: Pregabalin (Pregabalin 150 Mg Cap) 300 mg PO BID@0900,1900 [facility] Stop: 01/03/20 18:59 Last Admin: 12/06/19 08:37 Dose: 300 mg Documented by: Sodium Chloride (Sodium Chloride 0.65% Na Soln 45 Ml ([place])) 1 - 2 sprays NA PRN PRN PRN Reason: Nasal Dryness/Congestion Stop: 01/01/20 04:51 Thiamine HCl (Thiamine Hcl 100 Mg Tab) [facility] Stop: 01/04/20 08:59 Last Admin: 12/06/19 08:39 Dose: 100 mg Documented by: Trazodone HCl (Trazodone Hcl 50 Mg Tab) 50 mg PO 1900 [facility] Stop: 01/03/20 18:59 Last Admin: 12/05/19 18:59 Dose: 50 mg Documented by: Vitamin D (Cholecalciferol 1,000 Units 25 Mcg Tab) 2,000 units PO QAM [facility] Stop: 01/01/20 08:59 Last Admin: 12/06/19 08:40 Dose: 2,000 units Documented by: Mental Health & Subst Abuse Tx Psychiatrist Name of Psychiatrist: [facility] Liv Blanc Psychiatrist's Psychiatric Appointment Comment[address] [place] [place] [address] Therapist Name of Therapist: [facility] Liv Granados Therapist's Therapy Appointment Comment: Telehealth Guest Service Agent Name of Guest Service Agent: [facility] Supervisor Prop Making - Robert Phone Number for Guest Service Agent: [phone] ext [phone] Post Discharge Appointments Primary Care Physician Name Of Family Doctor: DAVID Tamez PA-C Primary Care Provider Appointment Comment: [address], [place] [address] Contact Information Discharge Discharge Address: [address] [place] [address], [place] [address]
[2019-12-06] MEDS: TRAZODONE HCL 50 MG TAB PO SCH (19:26)
[2019-12-06] MEDS: PRAZOSIN HCL 1 MG CAP PO SCH (19:29)
[2019-12-07] MEDS: IBUPROFEN 600 MG TAB PO PRN (04:51)
[2019-12-07] MEDS: DULOXETINE HCL 60 MG CAP PO SCH (07:24)
[2019-12-07] MEDS: PREGABALIN 150 MG CAP PO SCH ×2 (07:25→18:47)
[2019-12-07] MEDS: lamoTRIgine 100 MG TAB PO SCH ×2 (07:25→18:47)
[2019-12-07] MEDS: MULTIVITAMIN TAB PO SCH (07:26)
[2019-12-07] MEDS: AMLODIPINE BESYLATE 5 MG TAB PO SCH (07:26)
[2019-12-07] MEDS: MAGNESIUM OXIDE 400 MG TAB PO SCH ×2 (07:26→18:48)
[2019-12-07] MEDS: THIAMINE HCL 100 MG TAB PO SCH (07:27)
[2019-12-07] MEDS: CALCIUM CARBONATE 500 MG CHEWABLE TAB PO SCH (07:27)
[2019-12-07] MEDS: CHOLECALCIFEROL 1,000 UNITS 25 MCG TAB PO SCH (07:27)
[2019-12-07] MEDS: LISINOPRIL/HCTZ 20/12.5MG 1 TAB TAB PO SCH (07:27)
[2019-12-07] MEDS: NICOTINE POLACRILEX 2 MG GUM MT PRN ×5 (07:28→18:48)
[2019-12-07] MEDS: NICOTINE 7 MG/24 HR TDSY TD SCH (07:28)
--- NOTE | 2019-12-07 11:42 | Psychiatric Progress Note ---
Date of Service December 07, 2019 Impression / Recommendations Impression 39-year-old male with a history of depression, PTSD, alcohol dependence, and TBI with cognitive impairment who presented with worsening mood and suicidal ideation in the context of psychosocial stressors and increasing alcohol use. He was admitted voluntarily, continued on home medications including duloxetine and prazosin, and is willing for inpatient rehab. Inpatient treatment is medically necessary at this time due to the severity of symptoms and risk for suicide if discharged prematurely. Pt is presently denying SI and reporting a positive outlook now that he has requested help. He, personally, admits to concern for rapid decompensation if he is discharged home to his previous stressors (mentioning concern for both SI and HI if he were to return home), but is able to contract for safety in a structured setting and is not perceived to be an acute safety risk in the rehab setting at this time. There is ongoing concern that patient is likely to repeat the same pattern of substance use leading to acute safety concerns if he is discharged home without a reasonable plan for appropriate D&A treatment. Will begin rehab referrals and coordination of discharge planning. Reviewed 12/06/2019. 12/06--has difficulty tolerating wait for rehab, unwitnessed fall out of bed due to ?night terror (1) Depression: 12/01 -continue duloxetine 120 mg daily, and coordinate care with [facility] outpatient clinicians [facility]. -Attending participating groups and therapy, work on healthy coping skills and discharge safety plan. 12/02 - Continue medication regimen as above - patient is able to identify numerous stressors he feels have been contributing to both his depression and continued alcohol use. He admits today that he has a more positive outlook, hopeful about his future - Pt continues to deny active SI, reporting improvement in mood - but is admitting to concern for rapid decompensation if he is discharged home to the s carla stressors. Pt is not perceived to be at acute risk of harm to self within a structured setting, but concern for alcohol relapse and recurrence of SI is why direct transfer from our unit to an inpatient D&A rehabilitation facility is being recommended. 12/03 - Continue current medication regimen - Pt admits to anxiety and feeling overwhelmed with discharge planning. He remains willing for discharge to rehab and states he feels ready to make this transition; however, he continues to state he does not feel safe returning home 12/04 -Patient reports that he continues to experience panic attacks and extreme anxiety under certain situations that recapitulate or remind him of various traumatic events from his past. However, he notes that his mood, in general, has improved and he is formed several positive alliances on the unit. -The patient reports that he feels that his current medication regimen is appropriate. He does say that he would feel safe in going to residential treatment program, and he also says that he thinks that he would possibly be okay if he were to finish treatment at our unit, and then go to live with his brother near [place]. He does not feel that he would be able to tolerate the stress of returning to his family home given his 's threats and behaviors. -He talks about an event several weeks ago in which, not long after he had had some form of surgery involving an abdominal hernia, he noticed that the grass in the family's yard needed to be mowed, and so he mowed the yard. When he finished, his reportedly told him to "stop doing so much." The patient's first thought was that she was concerned about his physical health within the context of his surgery and the fact that he was engaged in a fairly strenuous activity. However, according the patient, he quickly realized that her concern had nothing to do with his health, but, instead, with how she would be perceived by their 2 children. He quoted her as saying, "how do you think it makes me look when you show me up like this?" He reports that he asked her who would do the work that he is been doing if he, himself, did not do it, and her reply was "stop making me look bad." Reviewed 12/06/2019. Will give Ativan 1 mg 30 min prior to meeting with . (2) Alcohol abuse: 12/01 -continue AWSS protocol with Ativan as needed for withdrawal symptoms. -Recovery protocol. -Patient [facility] for [facility] -Recommend avoiding prescription of controlled substances given the high risk of abuse/misuse/negative outcomes. 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 -Brief intervention was offered and accepted Intervention was greater than 5 min in length. Brief interventions include: 1. Assess Readiness to Quit, 2. Advise: Help Patient to Reduce or Abstain from Alcohol, 3. Agree: Set Specific, Feasible Goals, 4. Assist: Anticipate barriers, Problem-Solving Solutions. Social work to 5. Arrange: Referrals to appropriate treatment. Summary of intervention: The patient is in contemplation stage with regards to transtheoretical model of change. The patient is advised to decrease alcohol consumption due to depressant effects and risk of interactions with prescription medications. The patient agreed to inpatient rehab and will be provided with recovery materials to continue to education self on how to cope with their condition without drinking. 12/02 - Pt is agreeable with recommendation for referral to an inpatient D&A rehab facility - Reports he preference is for a [facility] rehab facility in [place], [place] - patient states he has contact information for individuals that are able to help with this process. 12/03 - Continue attempts to arrange rehab referral - Pt continues to feel as though he would be unsafe to return home in between ri s psychiatric hospitalization and rehab placement due to concern for recurrence of SI and now possibly HI toward 12/04 -Of some concern today, when he was evaluated by a provider who was unknown to him, he talked for close to an hour about multiple problems, but never once mentioned that he is alcoholic or that his primary goal is to enter chemical dependency residential treatment. When this was pointed out to him, he seemed to express some ambivalence about going to residential treatment, and said that he would want to make sure that it was "an excellent" program, even though he had been advised that, currently, the situation is such that he may not be able to be as selective as he would like to be. -The patient does say that he would feel safe in going to a residential treatment program, and reiterates that he is concerned that he will become suicidal if he ends up having to go back home with his . Reviewed 12/06/2019. Rehab bed search ongoing (service connected). (3) Post-traumatic stress disorder, unspecified: 12/01 -continue SNRI and prazosin, resume outpatient therapy once inpatient rehab is completed. Could benefit from more intensive outpatient therapy. 12/04 -The patient was triggered and had a panic attack when to security officers into the unit because of a problem with 1 of the patient's peers. He mistakenly identified them as "police officers," and also mistakenly assumed that they were caring firearms. He was able to calm himself with attention by several of the unit's team members. Reviewed 12/06/2019. 12/06--increase Vistaril (4) Insomnia, unspecified: 12/01 -continue home dose of trazodone, provide education regarding sleep hygiene and importance of addressing his alcoholism in order to improve sleep. Reviewed 12/06/2019. (5) Hypertension: 12/01 -continue home dose of lisinopril/hydrochlorothiazide, monitor blood pressure and consider need for hospitalist consult if it remains elevated. Denies cardiovascular symptoms currently. Elevation likely impacted by anxiety of admission and alcohol withdrawal. 12/02 -- Hospitalist consultation reviewed, appreciate recommendations - It is reportedly felt that patient's elevated BP is related to alcohol withdrawal. Recommendation to continue AWSS protocol with Ativan - BP much improved today - 131/68 Reviewed 12/06/2019. (6) Tobacco use: 12/01 -smoking cessation education provided, offer patch and gum as needed for cravings. Refer to rehab for ongoing addiction treatment. Reviewed 12/06/2019. (7) Fibromyalgia: 12/01 -continue home dose of pregabalin. Reviewed 12/06/2019. (8) Seizure: 12/01 -continue home dose of lamotrigine. Reviewed 12/06/2019. 12/06--no evidence sz here but will add seizure precautions to lower bed/rails up, mats by bed at night. Risk Factors Assessment Male: Yes : Yes Do You Have Access To A Gun?: No Health Problems: Yes Mental Health Diagnoses: Yes Substance Use Disorders: Yes Previous Attempt: No Family History of Suicide: No Previous Psychiatric Hospitalization: No Hopelessness: Yes Smoker: Yes Protective Factors Assessment : Yes Responsible for Young Children: Yes Employed: No Stable Relationships: Yes Supportive Family: Yes Interval History Identifying Information NALLELY SELLERS is a 39-year-old M who currently lives in [place] with his , has a history of depression, alcohol abuse, and PTSD, and was admitted on 12/02/19 04:52 on a 201 voluntary commitment for depression and SI. Reviewed 12/06/2019. Chief Complaint "today is horrible, I felt OK yesterday but...". Review of Systems Sleep Information Total Hours of Sleep: 5.25 Sleep Comments: awake at 0430. Meal Information Percent Meal Consumed - Breakfast: 100 Percent Meal Consumed - Lunch: 100 Percent Meal Consumed - Dinner: 100 Subjective Subjective Patient was seen & assessed and interval progress reviewed with nursing and social work. He feels meeting with went well but she called back later "like nothing ever happened" to talk about their anniversary. Patient states that he went to sleep OK but had a night terror (which predate his drinking and PTSD), woke up at 4:30 am and reported falling out of bed on left hip and elbow. Ice and ibuprofen have helped some. minimal abrasion left elbow (<1 in) and denies brusing on hip, gait is fine. Requesting increase in prn anxiety medication during the day. Reviewed that falling asleep is not a problem. He believes that drinking decreased the frequency of these nocturnal events. Reviewed REM suppression and withdrawal dreams. No postictal state. Physical Exam Psychiatric Orientation: alert Apperance: appropriately dressed and appropriately groomed Eye Contact: good eye contact Motor Behavior: no abnormal motor movements Speech: normal rate/rhythm/volume of speech Affect: + depressed affect Mood: + depressed mood Thought Process: + circumstantial thought process and + concrete thought process Thought Content: reality based without delusions Suicidal Thoughts: denies suicidal thoughts Homicidal Thoughts: denies homicidal thoughts Hallucinations: no auditory hallucinations and no visual hallucinations Cognition: language grossly intact Estimated Intelligence: consistent with education level Insight: + limited insight Judgement: + limited judgement Vital Signs (Past 24 Hours) Last Vital Signs Temp 36.4 C L 12/07/19 06:41 Pulse 79 12/07/19 09:30 Resp 20 12/07/19 06:41 BP 148/84 H 12/07/19 09:30 Pulse Ox 96 12/02/19 10:45 Results & Data ([facility]) Current Inpatient Medications Current Inpatient Medications: Current Inpatient Medications Acetaminophen (Acetaminophen 325 Mg Tab) 650 mg PO Q4H PRN PRN Reason: Headache or Minor Fever Stop: 01/01/20 04:51 Last Admin: 12/07/19 08:56 Dose: 650 mg Documented by: Al Hydrox/Mg Hydrox/Simethicone (Aluminum/Magnesium Susp 30 Ml Udc) 30 ml PO Q4H PRN PRN Reason: GI Upset Stop: 01/01/20 04:51 Amlodipine Besylate (Amlodipine Besylate 5 Mg Tab) 5 mg PO [facility] Stop: 01/02/20 08:59 Last Admin: 12/07/19 07:26 Dose: 5 mg Documented by: Bismuth Subsalicylate (Bismuth Subsalicylate Liqd 236 Ml) 15 ml PO PRN PRN PRN Reason: Loose Stool Stop: 01/01/20 04:51 Calcium Carbonate (Calcium Carbonate 500 Mg Chewable Tab) 500 mg PO [facility] Stop: 01/01/20 08:59 Last Admin: 12/07/19 07:27 Dose: 500 mg Documented by: Duloxetine HCl (Duloxetine Hcl 60 Mg Cap) 120 mg PO [facility] Stop: 01/01/20 08:59 Last Admin: 12/07/19 07:24 Dose: 120 mg Documented by: Lisinopril/HCTZ (Lisinopril/Hctz 20/12.5mg 1 Tab Tab) 1 tab PO [facility] Stop: 01/01/20 08:59 Last Admin: 12/07/19 07:27 Dose: 1 tab Documented by: Hydroxyzine HCl (Hydroxyzine Hcl 25 Mg Tab) 50 mg PO Q6 PRN PRN Reason: Anxiety Stop: 01/01/20 04:51 Ibuprofen (Ibuprofen 600 Mg Tab) 600 mg PO Q6H PRN PRN Reason: Pain Stop: 01/02/20 13:49 Last Admin: 12/07/19 04:51 Dose: 600 mg Documented by: Lamotrigine (Lamotrigine 100 Mg Tab) 100 mg PO BID@0900,1900 [facility] Stop: 01/03/20 18:59 Last Admin: 12/07/19 07:25 Dose: 100 mg Documented by: Magnesium Hydroxide (Magnesium Hydroxide Susp 30 Ml Udc) 30 ml PO DAILY PRN PRN Reason: Constipation Stop: 01/01/20 04:51 Magnesium Oxide (Magnesium Oxide 400 Mg Tab) 400 mg PO BID@0900,1900 [facility] Stop: 01/03/20 10:59 Last Admin: 12/07/19 07:26 Dose: 400 mg Documented by: Miscellaneous (Remove Nicoderm Patch) 1 ea N/A DAILY@0859 [facility] Stop: 01/01/20 08:58 Last Admin: 12/07/19 07:28 Dose: Not Given Documented by: Multivitamins (Multivitamin Tab) 1 tab PO QAM [facility] Stop: 01/04/20 08:59 Last Admin: 12/07/19 07:26 Dose: 1 tab Documented by: Nicotine (Nicotine 7 Mg/24 Hr Tdsy) 7 mg TD QAM [facility] Stop: 01/01/20 08:59 Last Admin: 12/07/19 07:28 Dose: Not Given Documented by: Nicotine Polacrilex (Nicotine Polacrilex 2 Mg Gum) 1 piece MT Q1H PRN PRN Reason: nicotine cravings Stop: 01/01/20 09:44 Last Admin: 12/07/19 09:58 Dose: 1 piece Documented by: Prazosin HCl (Prazosin Hcl 1 Mg Cap) 5 mg PO 1899 [facility] Stop: 01/03/20 18:59 Last Admin: 12/06/19 19:29 Dose: 5 mg Documented by: Pregabalin (Pregabalin 150 Mg Cap) 300 mg PO BID@0900,1900 [facility] Stop: 01/03/20 18:59 Last Admin: 12/07/19 07:25 Dose: 300 mg Documented by: Sodium Chloride (Sodium Chloride 0.65% Na Soln 45 Ml ([place])) 1 - 2 sprays NA PRN PRN PRN Reason: Nasal Dryness/Congestion Stop: 01/01/20 04:51 Thiamine HCl (Thiamine Hcl 100 Mg Tab) 100 mg PO QAM [facility] Stop: 01/04/20 08:59 Last Admin: 12/07/19 07:27 Dose: 100 mg Documented by: Trazodone HCl (Trazodone Hcl 50 Mg Tab) 50 mg PO 1899 [facility] Stop: 01/03/20 18:59 Last Admin: 12/06/19 19:26 Dose: 50 mg Documented by: Vitamin D (Cholecalciferol 1,000 Units 25 Mcg Tab) 2,000 units PO QAM [facility] Stop: 01/01/20 08:59 Last Admin: 12/07/19 07:27 Dose: 2,000 units Documented by: Mental Health & Subst Abuse Tx Psychiatrist Name of Psychiatrist: DAVID Blanc Psychiatrist's Psychiatric Appointment Comment: [address], [place] [address] Therapist Name of Therapist: [facility] Liv Granados Therapist's Therapy Appointment Comment: Telehealth Doper Operator Name of Doper Operator: [facility] [employer] Employee Liv Jones Phone Number for Doper Operator: [phone] ext [phone] Post Discharge Appointments Primary Care Physician Name Of Family Doctor: DAVID Tamez PA-C Primary Care Provider Appointment Comment: [phone], [place] [address] Contact Information Discharge Discharge Address: [address] [place] [address], [place] [address]
[2019-12-07] MEDS: TRAZODONE HCL 50 MG TAB PO SCH (18:47)
[2019-12-07] MEDS: PRAZOSIN HCL 1 MG CAP PO SCH (18:48)
[2019-12-08] MEDS: NICOTINE POLACRILEX 2 MG GUM MT PRN ×4 (07:27→18:55)
[2019-12-08] MEDS: lamoTRIgine 100 MG TAB PO SCH ×2 (08:40→18:46)
[2019-12-08] MEDS: PREGABALIN 150 MG CAP PO SCH ×2 (08:40→18:46)
[2019-12-08] MEDS: DULOXETINE HCL 60 MG CAP PO SCH (08:40)
[2019-12-08] MEDS: MULTIVITAMIN TAB PO SCH (08:41)
[2019-12-08] MEDS: NICOTINE 7 MG/24 HR TDSY TD SCH (08:41)
[2019-12-08] MEDS: MAGNESIUM OXIDE 400 MG TAB PO SCH ×2 (08:41→18:45)
[2019-12-08] MEDS: CALCIUM CARBONATE 500 MG CHEWABLE TAB PO SCH (08:42)
[2019-12-08] MEDS: CHOLECALCIFEROL 1,000 UNITS 25 MCG TAB PO SCH (08:42)
[2019-12-08] MEDS: THIAMINE HCL 100 MG TAB PO SCH (08:42)
[2019-12-08] MEDS: LISINOPRIL/HCTZ 20/12.5MG 1 TAB TAB PO SCH (08:42)
[2019-12-08] MEDS: AMLODIPINE BESYLATE 5 MG TAB PO SCH (08:42)
--- NOTE | 2019-12-08 13:30 | Psychiatric Progress Note ---
Date of Service December 08, 2019 Impression / Recommendations Impression 39-year-old male with a history of depression, PTSD, alcohol dependence, and TBI with cognitive impairment who presented with worsening mood and suicidal ideation in the context of psychosocial stressors and increasing alcohol use. He was admitted voluntarily, continued on home medications including duloxetine and prazosin, and is willing for inpatient rehab. Inpatient treatment is medically necessary at this time due to the severity of symptoms and risk for suicide if discharged prematurely. Pt is presently denying SI and reporting a positive outlook now that he has requested help. He, personally, admits to concern for rapid decompensation if he is discharged home to his previous stressors (mentioning concern for both SI and HI if he were to return home), but is able to contract for safety in a structured setting and is not perceived to be an acute safety risk in the rehab setting at this time. There is ongoing concern that patient is likely to repeat the same pattern of substance use leading to acute safety concerns if he is discharged home without a reasonable plan for appropriate D&A treatment. Will begin rehab referrals and coordination of discharge planning. 12/07--Impression: stabilizing for rehab, Plan: continue current meds and treatment plan, await bed availability/acceptance at the [facility]. Risk Factors Assessment Male: Yes : Yes Do You Have Access To A Gun?: No Health Problems: Yes Mental Health Diagnoses: Yes Substance Use Disorders: Yes Previous Attempt: No Family History of Suicide: No Previous Psychiatric Hospitalization: No Hopelessness: Yes Smoker: Yes Protective Factors Assessment : Yes Responsible for Young Children: Yes Employed: No Stable Relationships: Yes Supportive Family: Yes Interval History Identifying Information NALLELY SELLERS is a 39-year-old M who currently lives in [place] with his , has a history of depression, alcohol abuse, and PTSD, and was admitted on 12/02/19 04:52 on a 201 voluntary commitment for depression and SI. Reviewed 12/06/2019. Chief Complaint "I'm ready to go to rehab, I'm done with my but she is helping me get there". Review of Systems Sleep Information Total Hours of Sleep: 6.75 Sleep Comments: awake at 0430. Meal Information Percent Meal Consumed - Breakfast: 100 Percent Meal Consumed - Lunch: 100 Percent Meal Consumed - Dinner: 0 Subjective Subjective Patient was seen & assessed and interval progress reviewed with treatment team. He is to have a phone call for additional screening today by rehab program due to hx of TBI and his federal BC/BS also has to assign a case packer. He denies any issues overnight and staff were able to confirm that he does not need his medications to go to rehab. Only Odalys added here and he states he won't need Vistaril prn outside of the hospital. Physical Exam Psychiatric Orientation: alert Apperance: appropriately dressed and appropriately groomed Eye Contact: good eye contact Motor Behavior: steady gait and station Speech: normal rate/rhythm/volume of speech Affect: + depressed affect Mood: + anxious mood Thought Process: + circumstantial thought process Thought Content: reality based without delusions Suicidal Thoughts: denies suicidal thoughts Homicidal Thoughts: denies homicidal thoughts Hallucinations: no auditory hallucinations and no visual hallucinations Cognition: language grossly intact Insight: + limited insight Judgement: + limited judgement Vital Signs (Past 24 Hours) Last Vital Signs Temp 36.5 C 12/08/19 06:34 Pulse 72 12/08/19 06:36 Resp 16 12/08/19 06:34 BP 160/100 H 12/08/19 06:36 Pulse Ox 96 12/02/19 10:45 Results & Data ([facility]) Current Inpatient Medications Current Inpatient Medications: Current Inpatient Medications Acetaminophen (Acetaminophen 325 Mg Tab) 650 mg PO Q4H PRN PRN Reason: Headache or Minor Fever Stop: 01/01/20 04:51 Last Admin: 12/07/19 08:56 Dose: 650 mg Documented by: Al Hydrox/Mg Hydrox/Simethicone (Aluminum/Magnesium Susp 30 Ml Udc) 30 ml PO Q4H PRN PRN Reason: GI Upset Stop: 01/01/20 04:51 Amlodipine Besylate (Amlodipine Besylate 5 Mg Tab) 5 mg PO QAM [facility] Stop: 01/02/20 08:59 Last Admin: 12/08/19 08:42 Dose: 5 mg Documented by: Bismuth Subsalicylate (Bismuth Subsalicylate Liqd 236 Ml) 15 ml PO PRN PRN PRN Reason: Loose Stool Stop: 01/01/20 04:51 Calcium Carbonate (Calcium Carbonate 500 Mg Chewable Tab) 500 mg PO QAM [facility] Stop: 01/01/20 08:59 Last Admin: 12/08/19 08:42 Dose: 500 mg Documented by: Duloxetine HCl (Duloxetine Hcl 60 Mg Cap) 120 mg PO QAM [facility] Stop: 01/01/20 08:59 Last Admin: 12/08/19 08:40 Dose: 120 mg Documented by: Lisinopril/HCTZ (Lisinopril/Hctz 20/12.5mg 1 Tab Tab) 1 tab PO QAM [facility] Stop: 01/01/20 08:59 Last Admin: 12/08/19 08:42 Dose: 1 tab Documented by: Hydroxyzine HCl (Hydroxyzine Hcl 25 Mg Tab) 50 mg PO Q6 PRN PRN Reason: Anxiety Stop: 01/01/20 04:51 Last Admin: 12/07/19 15:07 Dose: 50 mg Documented by: Ibuprofen (Ibuprofen 600 Mg Tab) 600 mg PO Q6H PRN PRN Reason: Pain Stop: 01/02/20 13:49 Last Admin: 12/07/19 04:51 Dose: 600 mg Documented by: Lamotrigine (Lamotrigine 100 Mg Tab) 100 mg PO BID@0900,1900 [facility] Stop: 01/03/20 18:59 Last Admin: 12/08/19 08:40 Dose: 100 mg Documented by: Magnesium Hydroxide (Magnesium Hydroxide Susp 30 Ml Udc) 30 ml PO DAILY PRN PRN Reason: Constipation Stop: 01/01/20 04:51 Magnesium Oxide (Magnesium Oxide 400 Mg Tab) 400 mg PO BID@0900,1900 [facility] Stop: 01/03/20 10:59 Last Admin: 12/08/19 08:41 Dose: 400 mg Documented by: Miscellaneous (Remove Nicoderm Patch) 1 ea N/A DAILY@59 [facility] Stop: 01/01/20 08:58 Last Admin: 12/08/19 08:41 Dose: Not Given Documented by: Multivitamins (Multivitamin Tab) 1 tab PO QAM [facility] Stop: 01/04/20 08:59 Last Admin: 12/08/19 08:41 Dose: 1 tab Documented by: Nicotine (Nicotine 7 Mg/24 Hr Tdsy) 7 mg TD QAM [facility] Stop: 01/01/20 08:59 Last Admin: 12/08/19 08:41 Dose: Not Given Documented by: Nicotine Polacrilex (Nicotine Polacrilex 2 Mg Gum) 1 piece [place] Q1H PRN PRN Reason: nicotine cravings Stop: 01/01/20 09:44 Last Admin: 12/08/19 13:11 Dose: 1 piece Documented by: Prazosin HCl (Prazosin Hcl 1 Mg Cap) 5 mg PO 1899 [facility] Stop: 01/03/20 18:59 Last Admin: 12/07/19 18:48 Dose: 5 mg Documented by: Pregabalin (Pregabalin 150 Mg Cap) 300 mg PO BID@0900,1900 [facility] Stop: 01/03/20 18:59 Last Admin: 12/08/19 08:40 Dose: 300 mg Documented by: Sodium Chloride (Sodium Chloride 0.65% Na Soln 45 Ml ([place])) 1 - 2 sprays NA PRN PRN PRN Reason: Nasal Dryness/Congestion Stop: 01/01/20 04:51 Thiamine HCl (Thiamine Hcl 100 Mg Tab) 100 mg PO QA [facility] Stop: 01/04/20 08:59 Last Admin: 12/08/19 08:42 Dose: 100 mg Documented by: Trazodone HCl (Trazodone Hcl 50 Mg Tab) 50 mg PO 1899 [facility] Stop: 01/03/20 18:59 Last Admin: 12/07/19 18:47 Dose: 50 mg Documented by: Vitamin D (Cholecalciferol 1,000 Units 25 Mcg Tab) 2,000 units PO QAM [facility] Stop: 01/01/20 08:59 Last Admin: 12/08/19 08:42 Dose: 2,000 units Documented by: Mental Health & Subst Abuse Tx Psychiatrist Name of Psychiatrist: [facility] Liv Blanc Psychiatrist's Psychiatric Appointment Comment: [place] [address] Therapist Name of Therapist: [place] Liv Granados Therapist's Therapy Appointment Comment: Telehealth Gyroscope Repairer Name of Gyroscope Repairer: [place] Telephone Directory Deliverer Liv Jones Phone Number for Gyroscope Repairer: [phone] ext [phone] Post Discharge Appointments Primary Care Physician Name Of Family Doctor: DAVID Tamez PA-C Primary Care Provider Appointment Comment: [place] [address] Contact Information Discharge Discharge Address: [address] [place] [address], [place] [address]
--- NOTE | 2019-12-08 15:03 | Discharge Summary ---
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 He said he is unable to leave his home unless he drinks alcohol because he is afraid to interact with people. He was intoxicated with a BAL of 155. UDS + THC. AST 41. He was brought in by police who completed a 302 warrant stating: "David's , Carly, called 's [employer] because David was acting manic in the house and pacing around. [place] [employer] contacted dispatch and requested officers respond to the house. David was outside with his pacing in the front yard yelling that he needs help, he can't do life anymore and he can't take it anymore. David made statements that he fakes a smile everyday, but now he has had it. David was intoxicated and drank multiple beverages according to his . David discussed that police presence scares him and he does not like guns." In the ER, he reported a history of TBI and PTSD re lated to his time in the [employer]. He reported extreme anxiety when leaving his house, which has worsened his alcoholism. He reported drinking 8-12 beers/day, and was started on the AWSS protocol. He reported depressed mood, hopelessness, helplessness, poor motivation, and difficulty functioning. He reports having suicidal thoughts over the past 6 months, with plans to hang himself or overdose on pills, but denied any on presentation. 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 Although he is supposed to have weekly therapy, he had not seen his therapist in 2 weeks. He signed in voluntarily for inpatient treatment. On my assessment, he reports mood and anxiety have been worsening for months, he has been isolating at home, and although he likes talking to people, he fears it and avoids going out of his house unless he is drunk. States he became overwhelmed yesterday after interactions with his , "she was coming at me, I try to do everything, just felt horrible." States he felt like a failure, hopeless and helpless. He started drinking at 4pm and had 4 16-oz IPAs (9% alcohol), which he says is a normal amount for him to drink, but says his told him to switch to alcoholic seltzer "because it's healthier." He drinks at least 5 beverages daily, more on Sundays. 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 His psychiatrist prescribes trazodone, prazosin, and duloxetine, and neurologist prescribes lamotrigine for seizure disorder; denies any recent medication changes. He thinks mood has been worsening for months, "just a downward spiral." Denies man ic and psychotic symptoms, reports daily anxiety, fear of leaving the house, feels on edge, erratic sleep patterns, doesn't like yelling (states often yells), and nightmares (which he can't recall when wakes up). He denies anger outbursts, "just last night, when my head blew up, and I was just done." States he is usually "just a laid back person." States he uses medical marijuana but hasn't been able to get consistent products which "is a stressor for me." He is interested in inpatient rehab, and wants to work on self esteem and "proper coping skills." Physical Exam Mental Examination see admission H&P and DOD summary. Vital Signs (Past 24 Hours) Last Vital Signs Temp 36.5 C 12/08/19 06:34 Pulse 72 12/08/19 06:36 Resp 16 12/08/19 06:34 BP 160/100 H 12/08/19 06:36 Pulse Ox 96 12/02/19 10:45 Principal Diagnosis major depressive disorder, recurrent, moderate Psychiatric Data see daily care summary. Patient was admitted and cooperative with unit routines. Norvasc was added to address his BP early in stay. He participated in groups and was able to have a family meeting with his by phone where he discussed divorce. She remains supportive of his transition to rehab. He was accepted to [facility] in [place]. As he has consistently denied SI and shown good behavioral control during his stay, he is stable for discharge to rehab level of care to address his ETOH use disorder. He did have an unwitnessed fall out of bed with no significant injury during a night terror. Day of Discharge Assessment see face to face contact on 12/07 which is less than 24 hours from his discharge time. He is organized and free of SI. He verbalized safety plan. Medications that are desired were sent electronically to [facility]. Transition of Care Transition Of Care Record: was reviewed with the patient Advance Directives Advance Directives Information Provided: Yes Advance Directives: No Mental Health Advance Directive: No Advance Directives on File: No Living Will: No Power of University President: No Advance Directives Reason:: Declines as Mental Health Visit. Risk Factors Assessment Male: Yes : Yes Do You Have Access To A Gun?: No Health Problems: Yes Mental Health Diagnoses: Yes Substance Use Disorders: Yes Previous Attempt: No Family History of Suicide: No Previous Psychiatric Hospitalization: No Hopelessness: Yes Smoker: Yes Protective Factors Assessment : Yes Responsible for Young Children: Yes Employed: No Stable Relationships: Yes Supportive Family: Yes Tobacco Cessation at Discharge Tobacco Cessation Medication Prescribed at Discharge: Offered & Pt Refused Total Time Total Time Spent: Less Than 30 Minutes Total Time Includes: Medication Reconciliation Discharge Data Consultations 12/02/19 13:23 Consult Hospitalist Routine Lab Results 12/01/19 12/01/19 12/01/19 22:30 22:30 22:30 WBC RBC Hgb Hct MCV MCH MCHC RDW Std Deviation RDW Coeff of Moi Plt Count MPV Immature Gran % (Auto) Neut % (Auto) Lymph % (Auto) [place] % (Auto) Eos % (Auto) Baso % (Auto) Neut # (Auto) Lymph # (Auto) [place] # (Auto) Eos # (Auto) Baso # (Auto) Immature Gran # (Auto) Sodium Potassium Chloride Carbon Dioxide Anion Gap BUN Creatinine Est Cr Clr Drug Dosing Est GFR ( Amer) Est GFR (Non-Af Amer) BUN/Creatinine Ratio Glucose Calcium Total Bilirubin AST ALT Alkaline Phosphatase Total Protein Albumin Globulin Albumin/Globulin Ratio TSH Urine Color Yellow Urine Appearance Clear Urine pH 5.5 Ur Specific Matteson 1.008 Urine Protein Trace H Urine Glucose (UA) Negative Urine Ketones Negative Urine Blood Negative Urine Nitrite Negative Urine Bilirubin Negative Urine Urobilinogen Negative Ur Leukocyte Esterase Negative Urine WBC (Auto) 0 Urine RBC (Auto) 0-4 U Hyaline Cast (Auto) 0 U Epithel Cells (Auto) 0-5 Urine Bacteria (Auto) Negative Salicylates Urine Opiates Screen Neg Ur Methadone, Qual Neg Acetaminophen Urine Barbiturates Neg Ur Phencyclidine (PCP) Neg U Amphetamin/Meth Scrn Neg MDMA (Ecstasy) Screen Neg U Benzodiazepines Scrn Neg Ur Cocaine Metabolite Neg U Marijuana (THC) Screen Pos H U Marijuana THC Carboxy 75 H Drug Screen Comment SEE NOTE Ethyl Alcohol mg/dL 12/02/19 12/02/19 12/02/19 00:00 00:00 00:00 WBC 6.40 RBC 6.20 H Hgb 17.8 Hct 52.1 H MCV 84.0 MCH 28.7 MCHC 34.2 RDW Std Deviation 49.6 H RDW Coeff of Moi 16.3 H Plt Count 172 MPV 10.9 H Immature Gran % (Auto) 0.3 Neut % (Auto) 51.9 Lymph % (Auto) 35.9 [place] % (Auto) 6.6 Eos % (Auto) 3.4 Baso % (Auto) 1.9 Neut # (Auto) 3.32 Lymph # (Auto) 2.30 [place] # (Auto) 0.42 Eos # (Auto) 0.22 Baso # (Auto) 0.12 Immature Gran # (Auto) 0.02 Sodium 139 Potassium 3.8 Chloride 108 H Carbon Dioxide 24 Anion Gap 8.0 BUN 12 Creatinine 1.01 Est Cr Clr Drug Dosing 121.9 Est GFR ( Amer) 108.1 Est GFR (Non-Af Amer) 93.3 BUN/Creatinine Ratio 12.2 Glucose 96 Calcium 9.5 Total Bilirubin 0.6 AST 41 H ALT 63 Alkaline Phosphatase 113 Total Protein 8.7 H Albumin 4.3 Globulin 4.4 H Albumin/Globulin Ratio 1.0 TSH 1.870 Urine Color Urine Appearance Urine pH Ur Specific Matteson Urine Protein Urine Glucose (UA) Urine Ketones Urine Blood Urine Nitrite Urine Bilirubin Urine Urobilinogen Ur Leukocyte Esterase Urine WBC (Auto) Urine RBC (Auto) U Hyaline Cast (Auto) U Epithel Cells (Auto) Urine Bacteria (Auto) Salicylates 4.9 Urine Opiates Screen Ur Methadone, Qual Acetaminophen < 2 L Urine Barbiturates Ur Phencyclidine (PCP) U Amphetamin/Meth Scrn MDMA (Ecstasy) Screen U Benzodiazepines Scrn Ur Cocaine Metabolite U Marijuana (THC) Screen U Marijuana THC Carboxy Drug Screen Comment Ethyl Alcohol mg/dL 12/02/19 12/03/19 12/03/19 00:00 07:08 07:08 WBC 4.84 RBC 6.17 H Hgb 18.0 Hct 52.6 H MCV 85.3 MCH 29.2 MCHC 34.2 RDW Std Deviation 51.0 H RDW Coeff of Moi 16.5 H Plt Count 168 MPV 11.3 H Immature Gran % (Auto) Neut % (Auto) Lymph % (Auto) [place] % (Auto) Eos % (Auto) Baso % (Auto) Neut # (Auto) Lymph # (Auto) [place] # (Auto) Eos # (Auto) Baso # (Auto) Immature Gran # (Auto) Sodium 138 Potassium 3.6 Chloride 103 Carbon Dioxide 27 Anion Gap 8.0 BUN 14 Creatinine 1.19 Est Cr Clr Drug Dosing 102.1 Est GFR ( Amer) 88.6 Est GFR (Non-Af Amer) 76.5 BUN/Creatinine Ratio 12.0 Glucose 133 H Calcium 9.8 Total Bilirubin AST ALT Alkaline Phosphatase Total Protein Albumin Globulin Albumin/Globulin Ratio TSH Urine Color Urine Appearance Urine pH Ur Specific Matt[place] Urine Protein Urine Glucose (UA) Urine Ketones Urine Blood Urine Nitrite Urine Bilirubin Urine Urobilinogen Ur Leukocyte Esterase Urine WBC (Auto) Urine RBC (Auto) U Hyaline Cast (Auto) U Epithel Cells (Auto) Urine Bacteria (Auto) Salicylates Urine Opiates Screen Ur Methadone, Qual Acetaminophen Urine Barbiturates Ur Phencyclidine (PCP) U Amphetamin/Meth Scrn MDMA (Ecstasy) Screen U Benzodiazepines Scrn Ur Cocaine Metabolite U Marijuana (THC) Screen U Marijuana THC Carboxy Drug Screen Comment Ethyl Alcohol mg/dL 155.5 H Hospital Course (1) Depression: 12/01 -continue duloxetine 120 mg daily, and coordinate care with his outpatient clinicians at the [facility]. -Attending participating groups and therapy, work on healthy coping skills and discharge safety plan. 12/02 - Continue medication regimen as above - patient is able to identify numerous stressors he feels have been contributing to both his depression and continued alcohol use. He admits today that he has a more positive outlook, hopeful about his future - Pt continues to deny active SI, reporting improvement in mood - but is admitting to concern for rapid decompensation if he is discharged home to the same stressors. Pt is not perceived to be at acute risk of harm to self within a structured setting, but concern for alcohol relapse and recurrence of SI is why direct transfer from our unit to an inpatient D&A rehabilitation facility is being recommended. 12/03 - Continue current medication regimen - Pt admits to anxiety and feeling overwhelmed with discharge planning. He remains willing for discharge to rehab and states he feels ready to make this transition; however, he continues to state he does not feel safe returning home 12/04 -Patient reports that he continues to experience panic attacks and extreme anxiety under certain situations that recapitulate or remind him of various traumatic events from his past. However, he notes that his mood, in general, has improved and he is formed several positive alliances on the unit. -The patient reports that he feels that his current medication regimen is appropriate. He does say that he would feel safe in going to residential treatment program, and he also says that he thinks that he would possibly be okay if he were to finish treatment at our unit, and then go to live with his brother near [place]. He does not feel that he would be able to tolerate the stress of returning to his family home given his 's threats and behaviors. -He talks about an event several weeks ago in which, not long after he had had some form of surgery involving an abdominal hernia, he noticed that the grass in the family's yard needed to be mowed, and so he mowed the yard. When he finished, his reportedly told him to "stop doing so much." The patient's first thought was that she was concerned about his physical health within the context of his surgery and the fact that he was engaged in a fairly strenuous activity. However, according the patient, he quickly realized that her concern had nothing to do with his health, but, instead, with how she would be perceived by their 2 children. He quoted her as saying, "how do you think it makes me look when you show me up like this?" He reports that he asked her who would do the work that he is been doing if he, himself, did not do it, and her reply was "stop making me look bad." Reviewed 12/06/2019. Will give Ativan 1 mg 30 min prior to meeting with . (2) Alcohol abuse: 12/01 -continue AWSS protocol with Ativan as needed for withdrawal symptoms. -Recovery protocol. -Patient [facility] for [facility] -Recommend avoiding prescription of controlled substances given the high risk of abuse/misuse/negative outcomes. 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 -Brief intervention was offered and accepted Intervention was greater than 5 min in length. Brief interventions include: 1. Assess Readiness to Quit, 2. Advise: Help Patient to Reduce or Abstain from Alcohol, 3. Agree: Set Specific, Feasible Goals, 4. Assist: Anticipate barriers, Problem-Solving Solutions. Social work to 5. Arrange: Referrals to appropriate treatment. Summary of intervention: The patient is in contemplation stage with regards to transtheoretical model of change. The patient is advised to decrease alcohol consumption due to depressant effects and risk of interactions with prescription medications. The patient agreed to inpatient rehab and will be provided with recovery materials to continue to education self on how to cope with their condition without drinking. 12/02 - Pt is agreeable with recommendation for referral to an inpatient D&A rehab facility - Reports he preference is for a [facility] affiliated rehab facility in [place], [place] - patient states he has contact information for individuals that are able to help with this process. 12/03 - Continue attempts to arrange rehab referral - Pt continues to feel as though he would be unsafe to return home in between his psychiatric hospitalization and rehab placement due to concern for recurrence of SI and now possibly HI toward 12/04 -Of some concern today, when he was evaluated by a provider who was unknown to him, he talked for close to an hour about multiple problems, but never once mentioned that he is alcoholic or that his primary goal is to enter chemical dependency residential treatment. When this was pointed out to him, he seemed to express some ambivalence about going to residential treatment, and said that he would want to make sure that it was "an excellent" program, even though he had been advised that, currently, the situation is such that he may not be able to be as selective as he would like to be. -The patient does say that he would feel safe in going to a residential shahid atment program, and reiterates that he is concerned that he will become suicidal if he ends up having to go back home with his . Reviewed 12/06/2019. Rehab bed search ongoing (service connected). (3) Post-traumatic stress disorder, unspecified: 12/01 -continue SNRI and prazosin, resume outpatient therapy once inpatient rehab is completed. Could benefit from more intensive outpatient therapy. 12/04 -The patient was triggered and had a panic attack when to security officers into the unit because of a problem with 1 of the patient's peers. He mistakenly identified them as "police officers," and also mistakenly assumed that they were caring firearms. He was able to calm himself with attention by several of the unit's team members. Reviewed 12/06/2019. 12/06--increase Vistaril (4) Insomnia, unspecified: 12/01 -continue home dose of trazodone, provide education regarding sleep hygiene and importance of addressing his alcoholism in order to improve sleep. Reviewed 12/06/2019. (5) Hypertension: 12/01 -continue home dose of lisinopril/hydrochlorothiazide, monitor blood pressure and consider need for hospitalist consult if it remains elevated. Denies cardiovascular symptoms currently. Elevation likely impacted by anxiety of admission and alcohol withdrawal. 12/02 -- Hospitalist consultation reviewed, appreciate recommendations - It is reportedly felt that patient's elevated BP is related to alcohol withdrawal. Recommendation to continue AWSS protocol with Ativan - BP much improved today - 131/68 Reviewed 12/06/2019. (6) Tobacco use: 12/01 -smoking cessation education provided, offer patch and gum as needed for cravings. Refer to rehab for ongoing addiction treatment. Reviewed 12/06/2019. (7) Fibromyalgia: 12/01 -continue home dose of pregabalin. Reviewed 12/06/2019. (8) Seizure: 12/01 -continue home dose of lamotrigine. Reviewed 12/06/2019. 12/06--no evidence sz here but will add seizure precautions to lower bed/rails up, mats by bed at night. Mental Health & Subst Abuse Tx Psychiatrist Name of Psychiatrist: [facility] Dr. Blanc Psychiatrist's Time of Appointment with Psychiatrist: Please follow up post rehab d/c Psychiatric Appointment Comment: [address] [place] [address] Therapist Name of Therapist: [facility] Liv Granados Therapist's Time of Therapist Appointment: Please follow up post rehab d/c Therapy Appointment Comment: Telehealth Crm Marketing Specialist Name of Crm Marketing Specialist: [facility] Laboratory Analyst - Robert Phone Number for Crm Marketing Specialist: [phone] ext [phone] Case Management Appointment Comment: Please follow up post rehab d/c Post Discharge Appointments Primary Care Physician Name Of Family Doctor: [facility] Brigid Tamez PA-C Primary Care Time of Appointment with PCP: Please follow up post rehab d/c Provider Appointment Comment: [address] [place] [address] Smoking Cessation Counseling Tobacco Cessation Medication Prescribed at Discharge: Offered & Pt Refused Other #1: Name of Aftercare Appointment: [facility] Phone Number of Aftercare Appointment: Date of Aftercare Appointment: 12/09/19 Time of Aftercare Appointment: 12:30 p.m. Aftercare Appointment Comment: [address], [place] [address] Contact Information Discharge Discharge Address: [address] [place] [id number] Discharge Plan Discharge Items Patient Disposition: Drug & Alcohol Rehab Reason For Visit: MDD / PTSD Discharge Diagnosis: same Activity: Resume your previous activity Non-emergency contact: Primary Care Provider and Therapist Call non-emergency contact if: you have any medication questions Follow-up/Referrals: Birgid Tamez PA-C [Primary Care Provider] - Diet: Regular Addtl Attending Provider Instructions: SPECIAL CARE INSTRUCTIONS: 1. Follow through with your scheduled aftercare appointments. If unable to keep an appointment, please call to reschedule. 2. Take your medication only as prescribed. Medication should not be changed or stopped without the approval of your doctor. In the event of worsening symptoms or concerns about side effects, contact your doctor immediately. 3. Utilize new healthy coping skills, anger management skills, and stress management skills learned during your hospitalization. Journal feelings and process them with a support person. Identify stressors or situations that may result in relapse, deterioration or inappropriate behaviors and develop a plan to deal with those issues. 4. If your coping skills are ineffective and you are in crisis, contact your outpatient providers for direction. If unable to reach your providers, please call the [facility] CRISIS LINE AT , go to the [facility] walk-in center at [address], [place], or go to the closest Emergency Room. 5. Avoid alcohol and un-prescribed drugs. 6. You have been provided with the Mental Health Advance Directives Pamphlet for your review. AFTERCARE APPOINTMENTS: * Please call your insurance company prior to your scheduled appointment to confirm your aftercare providers are covered. Take your insurance information to your appointments. WHO TO CALL AND WHEN: Medical Emergencies: For questions or emergencies related to your hospital stay, please contact the Inpatient Behavioral Health Unit at [phone]. A crawler dragline operator is on-call 25/09 for the Behavioral Health Unit for emergencies At any time you feel your situation is an emergency, you may also call 911 immediately. Pending Studies at Discharge: No Stand-Alone Forms: [facility] Room Choice, Suicide Prevention Resources Skilled Items Patient informed of condition?: Yes DNR: No Discharge Level of Care: Other Communicable Disease: No Discharge Prognosis: Improving Lines: None Urinary Catheter: No Medications and DC Order Prescriptions: New amlodipine [Norvasc] 5 mg Tablet 5 mg PO QAM 30 Days Qty: 30 RF: 0 prazosin [Minipress] 5 mg capsule 5 mg PO 1900 30 Days Qty: 30 RF: 0 trazodone 50 mg Tablet 50 mg PO 1900 30 Days Qty: 30 RF: 0 Continued calcium carbonate [Calcium 500] 500 mg calcium (1,250 mg) tablet 500 mg PO QAM RF: 0 magnesium 30 mg Tablet 400 mg PO BID RF: 0 lamotrigine [Lamictal] 100 mg Tablet 100 mg PO BID RF: 0 lisinopril-hydrochlorothiazide 20-12.5 mg Tablet 1 tab PO QAM RF: 0 duloxetine 60 mg Capsule,Delayed Release(Dr/Ec) 120 mg PO QAM RF: 0 pregabalin 300 mg Capsule 300 mg PO BID RF: 0 cholecalciferol (vitamin D3) [Vitamin D3] 2,000 unit Capsule 2,000 unit PO QAM RF: 0 Discontinued trazodone 50 mg Tablet 50 mg PO HS RF: 0 prazosin 5 mg Capsule 5 mg PO HS RF: 0 Discharge Orders: Discharge Order (Routine); Ordered 12/09/19 Ordered By: Jacqueline Kendrick Admission Data Admit Date/Time: 12/02/19 04:52 Attending Provider: Tia Peralta Admit Provider: Tanna Arreaga Primary Care Provider: Brigid Tamez Other Providers: Andre Jaime ; Naheed Sylvester I. ; Timo Leach Other Interventions: PSY Interdisciplinary Discharge Planning Last Done: 12/08/19 14:09 Coding Level of Care Code 06050 D/C day mgmt 30 min or < Diagnoses Depression F32.9 Alcohol abuse F10.10 Post-traumatic stress disorder, unspecified F43.10 Insomnia, unspecified G47.00 Hypertension I10 Tobacco use Z72.0 Fibromyalgia M79.7 Seizure R56.9
[2019-12-08] MEDS: TRAZODONE HCL 50 MG TAB PO SCH (18:46)
[2019-12-08] MEDS: PRAZOSIN HCL 1 MG CAP PO SCH (18:56)
[2019-12-09] MEDS: lamoTRIgine 100 MG TAB PO SCH (07:25)
[2019-12-09] MEDS: MAGNESIUM OXIDE 400 MG TAB PO SCH (07:25)
[2019-12-09] MEDS: PREGABALIN 150 MG CAP PO SCH (07:25)
[2019-12-09] MEDS: DULOXETINE HCL 60 MG CAP PO SCH (07:25)
[2019-12-09] MEDS: CALCIUM CARBONATE 500 MG CHEWABLE TAB PO SCH (07:26)
[2019-12-09] MEDS: THIAMINE HCL 100 MG TAB PO SCH (07:26)
[2019-12-09] MEDS: LISINOPRIL/HCTZ 20/12.5MG 1 TAB TAB PO SCH (07:26)
[2019-12-09] MEDS: AMLODIPINE BESYLATE 5 MG TAB PO SCH (07:26)
[2019-12-09] MEDS: NICOTINE 7 MG/24 HR TDSY TD SCH (07:26)
[2019-12-09] MEDS: MULTIVITAMIN TAB PO SCH (07:26)
[2019-12-09] MEDS: CHOLECALCIFEROL 1,000 UNITS 25 MCG TAB PO SCH (07:27)
[2019-12-09] MEDS: NICOTINE POLACRILEX 2 MG GUM MT PRN (07:31)
== END 2019-12-09 08:00 | disposition alcohol treatment (31) | DRG 885 ==
LOC: ED 22:17 → 3S 12-02 04:52